=== PATIENT | female | born 1965 | race Caucasian/White ===

== ENCOUNTER 2022-10-07 07:08 | Outpatient (OUT) | payer BC, SELFPAY ==
[2022-10-07 07:58] LABS: Basophils Absolute Auto 0.1 10^3/uL (0.0-0.1); Basophils Percent Auto 1.2 % (0.2-2.0); Eosinophils Absolute Auto 0.2 10^3/uL (0.0-0.7); Eosinophils Percent Auto 3.4 % (0.9-7.0); Hematocrit 40.6 % (36.0-48.0); Hemoglobin 13.6 g/dL (12.0-16.0); Immature Granulocytes Abs Auto 0.01 10^3/uL (0.00-0.03); Immature Granulocytes Pct Auto 0.2 % (0.0-0.5); Lymphocytes Percent Auto 39.1 % (20.5-60.0); Mean Corpuscular HGB Conc 33.5 g/dL (29.9-35.2); Mean Corpuscular Hemoglobin 28.7 pg (26.7-34.0); Mean Corpuscular Volume 85.7 fL (81.0-99.0); Monocytes Absolute Auto 0.4 10^3/uL (0.3-0.8); Monocytes Percent Auto 8.5 % (1.7-12.0); Neutrophils Absolute Auto 2.4 10^3/uL (1.4-6.5); Neutrophils Percent Auto 47.6 % (43.0-75.0); Platelet Count 256 10^3/uL (150-450); Red Blood Count 4.74 10^6/uL (4.20-5.40); Red Cell Distribution Width 11.9 % (11.0-15.0); White Blood Count 5.1 10^3/uL (4.0-11.0)
[2022-10-07 08:24] LABS: Alanine Aminotransferase 38 U/L (14-59); Albumin Level 3.7 g/dL (3.4-5.0); Alkaline Phosphatase 74 U/L (46-116); Anion Gap 11.8; Aspartate Amino Transferase 20 U/L (15-37); BUN Creatinine Ratio 23.7; Bilirubin Total 0.9 mg/dL (0.2-1.0); Carbon Dioxide 30.4 mmol/L (21.0-32.0); Chloride 104 mmol/L (98-107); Chol HDL Ratio 3.9; Cholesterol 212 mg/dL (<=200); Estimated GFR (African America >60 (>=60); Estimated GFR (Non-African Ame >60 (>=60); Globulin 3.6 g/dL; Glucose 101 mg/dL (74-106); HDL Cholesterol 55 mg/dL (40-60); Potassium 3.2 mmol/L (3.5-5.1); Sodium 143 mmol/L (136-145); Total Protein 7.3 g/dL (6.4-8.2); Triglycerides 120 mg/dL (<=150)
== END 2022-10-07 07:09 | disposition home or self-care (01) ==
LOC: LAB 07:14
PROVIDERS: PCP Family Medicine; Visit Provider Physician Assistant
DX: Z00.00 Encounter for general adult medical examination without abnormal findings (principal); I10 Essential (primary) hypertension; D64.9 Anemia, unspecified; E87.6 Hypokalemia; E66.9 Obesity, unspecified
CPT/HCPCS: 36415; 80053; 80061; 85025

== ENCOUNTER 2022-10-10 07:17 | Outpatient (OUT) | payer BC, SELFPAY ==
--- NOTE | 2022-10-10 | MM_ITS ---
Patient: AJITH REYES Exam Date: 10/10/2022 : 1965 Gender:F Ordering : DR GIULIA BOWIE Admission #: [id number] Family : DR Zendejas Abbey . Order #: [id number] CLICK HERE TO VIEW EXAM RADIOLOGY REPORT PROCEDURE: MM TOMOSYNTHESIS SCREENING BI COMPARISON: MG MAMM SCREEN 3D FARIBA CAD, 10/11/2021. MG MAMM SCREEN 3D FARIBA CAD, 10/19/2020. MG MAMM SCREEN 3D FARIBA CAD, 09/28/2019. MG MAMM SCREEN 3D FARIBA CAD, 08/16/2018. INDICATIONS: Screening Calculator Name NCI Breast Cancer Risk Assessment Tool 5 Year Breast Cancer Risk 1.10% Lifetime Breast Cancer Risk 7.20% Personal Breast Cancer No Personal Ovarian Cancer No Treatments None Family Cancers None LOCATION: The [facility] BREAST COMPOSITION: Almost entirely fatty. FINDINGS: DIAGNOSTIC CATEGORY 2--BENIGN FINDING: RIGHT BREAST: No significant suspicious finding. Scattered benign-appearing calcifications are present. No significant change has occurred. LEFT BREAST: No significant suspicious finding. Scattered benign-appearing calcifications are present. No significant change has occurred. RECOMMENDATIONS: ROUTINE MAMMOGRAM AND CLINICAL EVALUATION IN 12 MONTHS. PLEASE NOTE: A NORMAL MAMMOGRAM DOES NOT EXCLUDE THE POSSIBILITY OF BREAST CANCER. A CLINICALLY SUSPICIOUS PALPABLE LUMP SHOULD BE BIOPSIED. Dictated by: Nico Dobson M.D. on 10/10/2022 at 14:55 Approved by: Nico Dobson M.D. on 10/10/2022 at 14:56
== END 2022-10-10 07:18 | disposition home or self-care (01) ==
LOC: MAMMO 07:18
PROVIDERS: PCP Family Medicine; Visit Provider Physician Assistant
DX: Z12.31 Encounter for screening mammogram for malignant neoplasm of breast (principal)
CPT/HCPCS: 77063; 77067

== ENCOUNTER 2022-11-24 21:03 | Outpatient (REF) | payer OTHER, SELFPAY ==
[2022-11-28 14:09] LABS: Age Gdln ACOG Testing Note (.); HPV Aptima Negative (Negative); IGP, Aptima HPV, rfx 16/18,45 Note (.)
== END 2022-11-24 21:04 | disposition home or self-care (01) ==
LOC: LAB 21:03
PROVIDERS: PCP Family Medicine; Visit Provider Obstetrics & Gynecology
DX: Z12.4 Encounter for screening for malignant neoplasm of cervix (principal)
CPT/HCPCS: G0145

== ENCOUNTER 2022-12-12 12:52 | Outpatient (OUT) | payer OTHER, SELFPAY ==
--- NOTE | 2022-12-12 12:55 | XR_ITS ---
[address] [address] Patient Name: AJITH REYES MRN: [id number] date: 1965 Sex: F Assigned Patient Location: [facility] Current Patient Location: [facility] Accession/Order Number: [id number] Exam Date: 12/12/2022 13:05 Report Date: 12/12/2022 17:51 At the request of: MONIQUE ZAVALA Procedure: XR DEXA axial skeleton EXAMINATION: XR DEXA axial skeleton, 12/12/2022 1:05 PM EDT HISTORY: Screening Osteoporosis Z13.820 COMPARISON: 2021 TECHNIQUE: Dual-energy X-ray absorptiometry (DEXA) bone density study performed for the axial skeleton. HISTORY: Screening Osteoporosis Z13.820 FINDINGS: Bone mineral density AP spine L1-L4 measures 1.357 g/sq cm. T score 1.5. WHO classification: Normal. Lowest bone mineral density left femoral neck measuring 0.997 g/sq cm. T score -0.3. WHO classification: Normal XR/XR DEXA axial skeleton IMPRESSION: Normal bone mineral density. Low fracture risk Electronically authenticated by: POOL SORIA Date: 12/12/2022 17:51
== END 2022-12-12 12:53 | disposition home or self-care (01) ==
LOC: RAD 12:52
PROVIDERS: PCP Family Medicine; Visit Provider Obstetrics & Gynecology
DX: Z13.820 Encounter for screening for osteoporosis (principal)
CPT/HCPCS: 77080

== ENCOUNTER 2023-10-09 06:55 | Outpatient (OUT) | payer OTHER, SELFPAY ==
[2023-10-09 08:22] LABS: Basophils Absolute Auto 0.1 10^3/uL (0.0-0.1); Basophils Percent Auto 0.9 % (0.2-2.0); Eosinophils Absolute Auto 0.2 10^3/uL (0.0-0.7); Eosinophils Percent Auto 3.7 % (0.9-7.0); Hematocrit 42.2 % (36.0-48.0); Hemoglobin 13.9 g/dL (12.0-16.0); Immature Granulocytes Abs Auto 0.01 10^3/uL (0.00-0.03); Immature Granulocytes Pct Auto 0.2 % (0.0-0.5); Lymphocytes Absolute Auto 2.1 10^3/uL (1.2-3.8); Mean Corpuscular HGB Conc 32.9 g/dL (29.9-35.2); Mean Corpuscular Hemoglobin 28.3 pg (26.7-34.0); Mean Corpuscular Volume 85.8 fL (81.0-99.0); Mean Platelet Volume 9.1 fL (9.5-13.5); Monocytes Absolute Auto 0.4 10^3/uL (0.3-0.8); Monocytes Percent Auto 7.9 % (1.7-12.0); Neutrophils Absolute Auto 2.7 10^3/uL (1.4-6.5); Neutrophils Percent Auto 49.3 % (43.0-75.0); Platelet Count 280 10^3/uL (150-450); Red Blood Count 4.92 10^6/uL (4.20-5.40); Red Cell Distribution Width 11.9 % (11.0-15.0); White Blood Count 5.4 10^3/uL (4.0-11.0)
[2023-10-09 10:32] LABS: Alanine Aminotransferase 54 U/L (14-59); Albumin Level 3.6 g/dL (3.4-5.0); Alkaline Phosphatase 93 U/L (46-116); Anion Gap 10.3; Aspartate Amino Transferase 19 U/L (15-37); BUN Creatinine Ratio 28.6; Bilirubin Total 0.8 mg/dL (0.2-1.0); Calcium 8.8 mg/dL (8.5-10.1); Carbon Dioxide 30.3 mmol/L (21.0-32.0); Chloride 105 mmol/L (98-107); Chol HDL Ratio 4.7; Cholesterol 239 mg/dL (<=200); Estimated GFR (African America >60 (>=60); Estimated GFR (Non-African Ame >60 (>=60); Globulin 3.7 g/dL; Glucose 99 mg/dL (74-106); HDL Cholesterol 51 mg/dL (40-60); Potassium 3.6 mmol/L (3.5-5.1); Sodium 142 mmol/L (136-145); TSH W/ REFLEX FT4 1.396 uIU/mL (0.358-3.740); Total Protein 7.3 g/dL (6.4-8.2); Triglycerides 91 mg/dL (<=150); VLDL CHOLESTEROL 18.2 mg/dL
== END 2023-10-09 06:56 | disposition home or self-care (01) ==
LOC: LAB 06:59
PROVIDERS: PCP Family Medicine; Visit Provider Physician Assistant
DX: Z00.00 Encounter for general adult medical examination without abnormal findings (principal); I10 Essential (primary) hypertension; D64.9 Anemia, unspecified; E87.6 Hypokalemia; R53.83 Other fatigue; Z83.49 Family history of other endocrine, nutritional and metabolic diseases; M79.10 Myalgia, unspecified site
CPT/HCPCS: 36415; 80053; 80061; 82306; 84443; 85025

== ENCOUNTER 2023-10-20 10:04 | Outpatient (OUT) | payer OTHER, SELFPAY ==
--- NOTE | 2023-10-20 10:16 | MM_ITS ---
Patient Name: AJITH REYES MR#: [id number] : 1965 Exam Date: 10/20/2023 Ordering Doctor: DR GIULIA BOWIE RADIOLOGY REPORT PROCEDURE: MM TOMOSYNTHESIS SCREENING BI COMPARISON: MM TOMOSYNTHESIS SCREENING BI, 10/10/2022. MG MAMM SCREEN 3D FARIBA CAD, 10/11/2021. MG MAMM SCREEN 3D FARIBA CAD, 10/19/2020. MG MAMM SCREEN 3D FARIBA CAD, 09/28/2019. INDICATIONS: Screening Calculator Name NCI Breast Cancer Risk Assessment Tool 5 Year Breast Cancer Risk 1.10% Lifetime Breast Cancer Risk 7.10% Personal Breast Cancer No Personal Ovarian Cancer No Treatments None Family Cancers None LOCATION: [facility] BREAST COMPOSITION: The breasts are almost entirely fatty. FINDINGS: DIAGNOSTIC CATEGORY 2--BENIGN FINDING: RIGHT BREAST: No significant suspicious finding. Scattered benign-appearing calcifications are present. No significant change has occurred. LEFT BREAST: No significant suspicious finding. Scattered benign-appearing calcifications are present. No significant change has occurred. RECOMMENDATIONS: ROUTINE MAMMOGRAM AND CLINICAL EVALUATION IN 12 MONTHS. PLEASE NOTE: A NORMAL MAMMOGRAM DOES NOT EXCLUDE THE POSSIBILITY OF BREAST CANCER. A CLINICALLY SUSPICIOUS PALPABLE LUMP SHOULD BE BIOPSIED. Dictated by: Nico Dobson M.D. on 10/20/2023 at 11:39 Approved by: Nico Dobson M.D. on 10/20/2023 at 11:44
== END 2023-10-20 10:05 | disposition home or self-care (01) ==
LOC: MAMMO 10:05
PROVIDERS: PCP Family Medicine; Visit Provider Physician Assistant
DX: Z12.31 Encounter for screening mammogram for malignant neoplasm of breast (principal)
CPT/HCPCS: 77063; 77067

== ENCOUNTER 2023-12-02 19:41 | Outpatient (REF) | payer OTHER, SELFPAY ==
--- OUTSIDE RECORDS SUMMARY | 2023-12-02 19:46 | XMS_ITS | CCD ---
Author Organization [facility] Care Team Providers Care Information Strategist Name Role Phone WEST, DR POOL Aaron Consulting Unavailable REQUEST, NONE LISTED Primary Care Unavaila ble SALLY, DR AMAYA Admitting Unavailable SALLY, DR AMAYA Attending Unavailable SALLY, DR AMAYA Consulting Unavailable SALLY, DR AMAYA Admitting Unavailable SALLY, DR AMAYA Attending Unavailable SALLY, DR AMAYA Consulting Unavailable REQUEST, NONE LISTED Primary Care Unavaila ble SYLVIA, VAISHALI Attending Unavailable SYLVIA, VAISHALI Consulting Unavailable SYLVIA, AVISHALI Admitting Unavailable REQUEST, NONE LISTED Primary Care Unavaila ble SYLVIA, VAISHALI Consulting Unavailable SYLVIA, VAISHALI Admitting Unavailable SYLVIA, VAISHALI Attending Unavailable REQUEST, NONE LISTED Primary Care Unavaila ble ZIEBER, DR NICO Decker Consulting Unavailable HEMMER, DR GIULIA Davis Admitting Unavailable HEMMER, DR GIULIA Davis Attending Unavailable HEMMER, DR GIULIA Davis Consulting Unavailable HEMMER, DR GIULIA Davis Consulting Unavailable MISC, DR TREVINO Primary Care Unavailable HEMMER, DR GIULIA Davis Admitting Unavailable HEMMER, DR GIULIA Davis Attending Unavailable SYLVIA, VAISHALI Consulting Unavailable SYLVIA, VAISHALI Admitting Unavailable SYLVIA, VAISHALI Attending Unavailable BG FARMER Attending Unavailable INDIRA LOCO Attending Unavailable BG FARMER Referring Unavailable INDIRA LOCO Attending Unavailable HEMMERGIULIA Attending Unavailable HEMMER, GIULIA Davis Attending Unavailable Problems Active Problems Problem Classification Problem Date Documented Date Episodic/Chronic Deficiency and other anemia (1 source) Anemia, unspecified; Translations: [ANEMIA UNSPECIFIED] Onset: 10-08-2021 Episodic Essential hypertension (1 source) Essential (primary) hypertension; Translations: [ESSENTIAL PRIMARY HYPERTENSION] Onset: 07-12-2022 Chronic Fluid and electrolyte disorders (1 source) Hypokalemia; Translations: [HYPOKALEMIA] Onset: 10-08-2021 Episodic Immunizations and screening for infectious disease (1 source) Encounter for screening for human papillomavirus (HPV); Translations: [ENC SCREENING HUMAN PAPILLOMAVIRUS] Onset: 11-01-2021 Episodic Other nutritional; endocrine; and metabolic disorders (1 source) Obesity, unspecified; Translations: [OBESITY UNSPECIFIED] Onset: 10-08-2021 Chronic Other screening for suspected conditions (not mental disorders or infectious disease) (8 sources) Encounter for screening for malignant neoplasm of cervix; Translations: [Encounter for screening mammogram for malignant neoplasm of breast] Onset: 10-11-2021 Episodic Residual codes; unclassified (4 sources) Asymptomatic menopausal state; Translations: [ASYMPTOMATIC MENOPAUSAL STATE] Onset: 11-08-2021 Episodic Unclassified (3 sources) CONTACT W/AND (SUSP) EXPOS COVID-19; Translations: [CONTACT W/AND (SUSP) EXPOS COVID-19] Onset: 10-31-2021 Viral infection (1 source) COVID-19; Translations: [COVID-19] Onset: 10-24-2021 Past or Other Problems Problem Classification Problem Date Documented Da te Episodic/Chronic Unclassified (1 source) CONTACT W/AND (SUSP) EXPOS COVID-19; Translations: [CONTACT W/AND (SUSP) EXPOS COVID-19] Onset: 10-28-2021 Results Test Name Value Interpretation Reference Range Facility XR DEXA BONE DENSITYon 11-08 XR DEXA BONE DENSITY EXAMINATION: XR DEXA BONE DENSITY, 11/08/2021 8:22 AM EDT HISTORY: Menopause present COMPARISON: None. TECHNIQUE: Dual-energy X-ray absorptiometry (DEXA) bone density study performed for the axial skeleton. FINDINGS: Bone mineral density AP spine L1-L4 measures 1.272 g/sq cm. T score 0.8. WHO classification: Normal. Lowest bone mineral density left femoral neck measures 0.992 g/sq cm. T score -0.3. Classification: Normal IMPRESSION: Normal bone mineral density. Low fracture risk Electronically authenticated by: POOL SORIA Date: 2021-11-08 17:21 Normal [facility] PAP ACOG PANEL 2: 30 to 65on 10-31-2021 . . Normal [facility] Comment on above: Result Comment: Perf ormed at: WB Performed By: #### [id number] #### [facility] [address] [address] [address] Alejandro Daniels Age Gdln ACOG Testing 30-65 [facility] Comment on above: Performed By: #### [id number] #### [facility] [address] [address] [address] Alejandro Daniels DIAGNOSIS: Comment Normal [facility] Comment on above: Result Comment: NEGA TIVE FOR INTRAEPITHELIAL LESION OR MALIGNANCY. Performed at: WB Performed By: #### [id number] #### [facility] [address] [place] [address] Dr. Alejandro Daniels HPV Aptima Negative Normal Negative [facility] Comment on above: Result Comment: This nucleic acid amplification test detects fourteen high-risk HPV types (16,18,31,33,35,39,45,51,52,56,58,59,66,68) without differentiation. Performed at: =G Performed By: #### [id number] #### [facility] [address] [place] [address] Dr. Alejandro Daniels Methodology: Comment [facility] Comment on above: Result Comment: This liquid based ThinPrep(R) pap test was screened with the use of an image guided system. Performed at: WB Performed By: #### [id number] #### [facility] [address] [place] [address] Dr. Alejandro Daniels Note: Comment Normal [facility] Comment on above: Result Comment: The Pap smear is a screening test designed to aid in the detection of premalignant and malignant conditions of the uterine cervix. It is not a diagnostic procedure and should not be used as the sole means of detecting cervical cancer. Both false-positive and false-negative reports do occur. . Performed at: WB Performed By: #### [id number] #### [facility] [address] [place] [address] Dr. Alejandro Daniels Performed by: Comment Normal [facility] Comment on above: Result Comment: Aurora Quinones Insurance Claim Auditor (ASCP) Performed at: WB Performed By: #### [id number] #### [facility] [address] [address] [address] Alejandro Daniels Specimen adequacy: Comment Normal [facility] Comment on above: Result Comment: Sati sfactory for evaluation. Endocervical and/or squamous metaplastic cells (endocervical component) are present. Performed at: WB Performed By: #### [id number] #### [facility] [address] [address] [address] Alejandro Daniels ASYMPTOMATIC COVID-19 ANTIGE Non 10-28-2021 EUA Statement SEE BELOW Normal [facility] Comment on above: Result Comment: This test has not been FDA cleared or approved, but has been authorized by the FDA under an Emergency Use Authorization (EUA) for use by authorized laboratories certified under CLIA that meet the requirements to perform moderate or high complexity testing. This test has been authorized only for the detection of proteins from SARS-CoV-2, not for any other viruses or pathogens. The emergency use of this test is authorized for the duration of the declaration that circumstances exist justifying the authorization of emergency use of in vitro diagnostic tests for detection and/or diagnosis of Covid-19 under section 564(b)(1) of the Act, 21 U.S.C. 360bbb-3(b)(1), unless the declaration is terminated or authorization is revoked sooner. Performed By: #### C VDAGA #### [facility] [address] [place] [address] Dr. Alejandro Daniels SARS-CoV-2 (COVID-19) RNA HILARY+probe Ql (Unsp spec) Negative Normal NEGATIVE [facility] Comment on above: Result Comment: Nega tive results are presumptive. They do not preclude infection and should not be used as the sole basis for treatment decisions. Additional confirmatory testing by a molecular method should be considered. Performed By: #### C VDAGA #### [facility] [address] [place] [address] Dr. Alejandro Daniels Covid-19 PCR ([facility])on 09-28 SARS-CoV-2 (COVID-19) RNA HILARY+probe Ql (Unsp spec) Detected Critically abnormal NOT DETECTED [facility] Comment on above: Result Comment: This test is not yet approved or cleared by the [place] FDA. When there are no FDA-approved or cleared tests available, and other criteria are met, FDA can make tests available under an emergency access mechanism called an Emergency Use Authorization (EUA). The EUA for this test is supported by the [employer] of Health and Human Service's declaration that circumstances exist to justify the emergency use of in vitro diagnostics for the detection and/or diagnosis of the virus that causes COVID-19. This EUA will remain in effect for the duration of the COVID-19 declaration justifying emergency of IVDs, unless it is terminated or revoked by the FDA (after which the test may no longer be used). Performed By: #### C VDTB #### [facility] [address] [address] [address] Alejandro Daniels MG MAMM SCREEN 3D HAYDEN CADon 10-11-2021 MG MAMM SCREEN 3D HAYDEN CAD Patient: AJITH REYES Exam Date: 10/11/2021 : 1965 Gender:F Ordering : DR GIULIA ESPARZA PA Admission #: [id number] Family : DR MONIQUE ZAVALA . Order #: [id number] CLICK HERE TO VIEW EXAM RADIOLOGY REPORT PROCEDURE: MAMMOGRAM SCREENING 3D BILATERAL CAD COMPARISON: MG MAMM SCREEN 3D HAYDEN CAD, 10/19/2020. MG MAMM SCREEN 3D HAYDEN CAD, 09/28/2019. INDICATIONS: Screening mammography Calculator Name NCI Breast Cancer Risk Assessment Tool 5 Year Breast Cancer Risk 1.10% Lifetime Breast Cancer Risk 7.40% Personal Breast Cancer No Personal Ovarian Cancer No Treatments None Family Cancers None LOCATION: [facility] BREAST COMPOSITION: Almost entirely fatty. FINDINGS: DIAGNOSTIC CATEGORY 2--BENIGN FINDING: RIGHT BREAST: No significant suspicious finding. Scattered benign-appearing calcifications are present. No significant change has occurred. LEFT BREAST: No significant suspicious finding. Scattered benign-appearing calcifications are present. No significant change has occurred. RECOMMENDATIONS: ROUTINE MAMMOGRAM AND CLINICAL EVALUATION IN 12 MONTHS. PLEASE NOTE: A NORMAL MAMMOGRAM DOES NOT EXCLUDE THE POSSIBILITY OF BREAST CANCER. A CLINICALLY SUSPICIOUS PALPABLE LUMP SHOULD BE BIOPSIED. Dictated by: Nico Dobson M.D. on 10/14/2021 at 11:24 Approved by: Nico Dobson M.D. on 10/14/2021 at 11:30 Normal [facility] CBC AUTO DIFFon 10-04-2021 BASO # 0.0 103/ul Normal 0.0-0.1 [facility] Comment on above: Performed By: #### C BC #### [facility] [address] [address] [address] Alejandro Daniels Basophils/100 WBC (Bld) 0.9 % Normal 0.2-2.0 [facility] Comment on above: Performed By: #### C BC #### [facility] [address] [address] [address] Alejandro Daniels EO # 0.3 103/ul Normal 0.0-0.7 [facility] Comment on above: Performed By: #### C BC #### [facility] [address] [place] [address] Dr. Alejandro Daniels Eosinophils/100 WBC (Bld) 7.3 % Critically high 0.9-7.0 [facility] Comment on above: Performed By: #### C BC #### [facility] [address] [address] [address] Alejandro Daniels Erythrocyte distribution width (RBC) [Ratio] 11.8 % Normal 11.0-15.0 [facility] Comment on above: Performed By: #### C BC #### [facility] [address] [place] [address] Dr. Alejandro Daniels Hematocrit (Bld) [Volume fraction] 40.8 % Normal 36.0-48.0 [facility] Comment on above: Performed By: #### C BC #### [facility] [address] [address] [address] Alejandro Daniels Hemoglobin (Bld) [Mass/Vol] 13.6 g/dL Normal 12.0-16.0 [facility] Comment on above: Performed By: #### C BC #### [facility] [address] [address] [address] Alejandro Daniels IG # 0.01 10e3/ul Normal 0.00-0.03 [facility] Comment on above: Performed By: #### C BC #### [facility] [address] [place] [address] Dr. Alejandro Daniels IG % 0.2 % Normal 0.0-0.5 [facility] Comment on above: Performed By: #### C BC #### [facility] [address] [place] [address] Dr. Alejandro Daniels LYMPH # 1.6 103/ul Normal 1.2-3.8 [facility] Comment on above: Performed By: #### C BC #### [facility] [address] [place] [address] Dr. Alejandro Daniels Lymphocytes/100 WBC (Bld) 35.8 % Normal 20.5-60.0 [facility] Comment on above: Performed By: #### C BC #### [facility] [address] [place] [address] Dr. Alejandro Daniels MANUAL DIFF REQ NO Normal [facility] Comment on above: Performed By: #### C BC #### [facility] [address] [place] [address] Dr. Alejandro Daniels MCH (RBC) [Entitic mass] 28.9 pg Normal 26.7-34.0 [facility] Comment on above: Performed By: #### C BC #### [facility] [address] [place] [address] Dr. Alejandro Daniels MCHC (RBC) [Mass/Vol] 33.3 g/dL Normal 29.9-35.2 [facility] Comment on above: Performed By: #### C BC #### [facility] [address] [place] [address] Dr. Alejandro Daniels MCV (RBC) [Entitic vol] 86.6 fL Normal 81.0-99.0 [facility] Comment on above: Performed By: #### C BC #### [facility] [address] [place] [address] Dr. Alejandro Daniels MONO # 0.4 103/ul Normal 0.3-0.8 [facility] Comment on above: Performed By: #### C BC #### [facility] [address] [address] [address] Alejandro Daniels Monocytes/100 WBC (Bld) 8.2 % Normal 1.7-12.0 [facility] Comment on above: Performed By: #### C BC #### [facility] [address] [address] [address] Alejandro Daniels NEUT # 2.1 103/ul Normal 1.4-6.5 [facility] Comment on above: Performed By: #### C BC #### [facility] [address] [address] [address] Alejandro Daniels Neutrophils/100 WBC (Bld) 47.6 % Normal 43.0-75.0 [facility] Comment on above: Performed By: #### C BC #### [facility] [address] [place] [address] Dr. Alejandro Daniels Platelet mean volume (Bld) [Entitic vol] 9.1 fL Critically low 9.5-13.5 [facility] Comment on above: Performed By: #### C BC #### [facility] [address] [place] [address] Dr. Alejandro Daniels PLT 241 103/ul Normal 150-450 [facility] Comment on above: Performed By: #### C BC #### [facility] [address] [place] [address] Dr. Alejandro Daniels RBC 4.71 106/ul Normal 4.20-5.40 [facility] Comment on above: Performed By: #### C BC #### [facility] [address] [place] [address] Dr. Alejandro Daniels WBC 4.4 103/ul Normal 4.0-11.0 [facility] Comment on above: Performed By: #### C BC #### [facility] [address] [place] [address] Dr. Alejandro Daniels LIPID PROFILEon 10-04-2021 CHOL-HDL RATIO NORM SEE BELOW Normal [facility] Comment on above: Result Comment: 3.3 - 4.4 LOW RISK 4.4 - 7.1 AVERAGE RISK 7.1 - 11.0 MODERATE RISK >11.0 HIGH RISK Performed By: #### C MP, LIPID #### [facility] [address] [address] [address] Alejandro Daniels Cholesterol [Mass/Vol] 210 mg/dL Critically high <=200 [facility] Comment on above: Performed By: #### C MP, LIPID #### [facility] [address] [address] [address] Alejandro Daniels Cholesterol in HDL [Mass/Vol] 61 mg/dL Critically high 40-60 [facility] Comment on above: Performed By: #### C MP, LIPID #### [facility] [address] [address] [address] Alejandro Daniels Cholesterol in LDL [Mass/Vol] 140.8 mg/dL Normal [facility] Comment on above: Performed By: #### C MP, LIPID #### [facility] [address] [place] [address] Dr. Alejandro Daniels Cholesterol.total /Cholesterol in HDL [Mass ratio] 3.4 {ratio} Normal [facility] Comment on above: Performed By: #### C MP, LIPID #### [facility] [address] [address] [address] Alejandro Daniels HDL NORMAL > or = 60 mg/dl - LO W CARDIOVASCULAR RISK <40 mg/dl - HIGH CARDIOVASCULAR RISK Normal [facility] Comment on above: Performed By: #### C MP, LIPID #### [facility] [address] [place] [address] Dr. Alejandro Daniels LDL CALC NORMAL SEE BELOW Normal [facility] Comment on above: Result Comment: <100 mg/dl OPTIMAL 100 - 129 mg/dl NEAR OR ABOVE OPTIMAL 130 - 159 mg/dl BORDERLINE HIGH 160 - 189 mg/dl HIGH >190 mg/dl VERY HIGH Performed By: #### C MP, LIPID #### [facility] [address] [place] [address] Dr. Alejandro Daniels Triglyceride [Mass/Vol] 41 mg/dL Normal <=150 [facility] Comment on above: Performed By: #### C MP, LIPID #### [facility] [address] [place] [address] Dr. Alejandro Daniels VLDL CALC 8.2 mg/dL Normal [facility] Comment on above: Performed By: #### C MP, LIPID #### [facility] [address] [place] [address] Dr. Alejandro Daniels PROF 14(COMP METB)on 022 Albumin [Mass/Vol] 3.7 g/dL Normal 3.4-5.0 [facility] Comment on above: Performed By: #### C MP, LIPID #### [facility] [address] [place] [address] Dr. Alejandro Daniels Albumin/Globulin [Mass ratio] 1.1 {ratio} Normal [facility] Comment on above: Performed By: #### C MP, LIPID #### [facility] [address] [place] [address] Dr. Alejandro Daniels ALP [Catalytic activity/Vol] 82 U/L Normal 46-116 [facility] Comment on above: Performed By: #### C MP, LIPID #### [facility] [address] [place] [address] Dr. Alejandro Daniels ALT [Catalytic activity/Vol] 42 U/L Normal 14-59 [facility] Comment on above: Performed By: #### C MP, LIPID #### [facility] [address] [place] [address] Dr. Alejandro Daniels Anion gap [Moles/Vol] 9.9 mmol/L Normal [facility] Comment on above: Performed By: #### C MP, LIPID #### [facility] [address] [place] [address] Dr. Alejandro Daniels AST [Catalytic activity/Vol] 16 U/L Normal 15-37 [facility] Comment on above: Performed By: #### C MP, LIPID #### [facility] [address] [place] [address] Dr. Alejandro Daniels Bilirubin [Mass/Vol] 0.8 mg/dL Normal 0.2-1.0 [facility] Comment on above: Performed By: #### C MP, LIPID #### [facility] [address] [place] [address] Dr. Alejandro Daniels Calcium [Mass/Vol] 8.8 mg/dL Normal 8.5-10.1 [facility] Comment on above: Performed By: #### C MP, LIPID #### [facility] [address] [place] [address] Dr. Alejandro Daniels Chloride [Moles/Vol] 107 mmol/L Normal 98-107 [facility] Comment on above: Performed By: #### C MP, LIPID #### [facility] [address] [place] [address] Dr. Alejandro Daniels CO2 [Moles/Vol] 29.6 mmol/L Normal 21.0-32.0 [facility] Comment on above: Performed By: #### C MP, LIPID #### [facility] [address] [place] [address] Dr. Alejandro Daniels Creatinine [Mass/Vol] 0.69 mg/dL Normal 0.55-1.02 [facility] Comment on above: Performed By: #### C MP, LIPID #### [facility] [address] [place] [address] Dr. Alejandro Daniels EGFR-AF ITALIAN >60 Normal >=60 [facility] Comment on above: Performed By: #### C MP, LIPID #### [facility] [address] [place] [address] Dr. Alejandro Daniels EGFR-NON AF ITALIAN >60 Normal >=60 [facility] Comment on above: Performed By: #### C MP, LIPID #### [facility] [address] [place] [address] Dr. Alejandro Daniels Globulin (S) [Mass/Vol] 3.5 g/dL Normal [facility] Comment on above: Performed By: #### C MP, LIPID #### [facility] [address] [place] [address] Dr. Alejandro Daniels Glucose [Mass/Vol] 100 mg/dL Normal 74-106 [facility] Comment on above: Performed By: #### C MP, LIPID #### [facility] [address] [place] [address] Dr. Alejandro Daniels Potassium [Moles/Vol] 3.5 mmol/L Normal 3.5-5.1 [facility] Comment on above: Performed By: #### C MP, LIPID #### [facility] [address] [place] [address] Dr. Alejandro Daniels Protein [Mass/Vol] 7.2 g/dL Normal 6.4-8.2 [facility] Comment on above: Performed By: #### C MP, LIPID #### [facility] [address] [place] [address] Dr. Aleajndro Daniels Sodium [Moles/Vol] 143 mmol/L Normal 136-145 [facility] Comment on above: Performed By: #### C MP, LIPID #### [facility] [address] [place] [address] Dr. Alejandro Daniels Urea nitrogen [Mass/Vol] 21.0 mg/dL Critically high 7.0-18.0 [facility] Comment on above: Performed By: #### C MP, LIPID #### [facility] [address] [place] [address] Dr. Alejandro Daniels Urea nitrogen/Creatini ne [Mass ratio] 30.4 mg/mg Normal [facility] Comment on above: Performed By: #### C MP, LIPID #### [facility] [address] [place] [address] Dr. Alejandro Daniels Covid-19 PCR ([facility])on SARS-CoV-2 (COVID-19) RNA HILARY+probe Ql (Unsp spec) Not detected Normal NOT DETECTED [facility] Comment on above: Result Comment: When diagnostic testing is negative, the possibility of a false negative should be considered in the context of a patient's recent exposures and the presence of clinical signs and symptoms consistent with SARS-CoV-2. This test is not yet approved or cleared by the [place] FDA. When there are no FDA-approved or cleared tests available, and other criteria are met, FDA can make tests available under an emergency access mechanism called an Emergency Use Authorization (EUA). The EUA for this test is supported by the [place] of Health and Human Service's declaration that circumstances exist to justify the emergency use of in vitro diagnostics for the detection and/or diagnosis of the virus that causes COVID-19. This EUA will remain in effect for the duration of the COVID-19 declaration justifying emergency of IVDs, unless it is terminated or revoked by the FDA (after which the test may no longer be used). Performed By: #### C VDTB #### [facility] [address] [place] [address] Dr. Alejandro Daniels Coding Summary.on 10-24-2020 Coding Summary. CD:[id number] Gh0b Ww+PGhlYWQ+KG7HKCOsF75mf SNoiO3UX5oXWE0ENHEKAQOVF P8EZX3qbZE7MYcpW7InwyEi QtskhQNkHJ62NTk3TDT4kPvb IZlqmW3ywVPvJ7l0TiXiUB29 zB93JJxxMWFwExV2TdWdjacx bWFy P8xlVnGegKZpUnx+PHRhYmxl IHdpZHRoPScxMDAlJyBzdHls ZY7vOw3cCIGzMJZlcVniuNUa OiBj l9vyANFvIOujPY1oeMubE7Im sHR3OGSxo7j2Us54pFT+PHRk NZN3sHcxVYpgr293PsBjb6mb IDM3 iLAuNGqjDTA2E59pu3L6ECDm FCZfQOM5rFR0mX5ehDvhynib H5QdbUUlSuC9TUU1xLNhnA2n bGln iunyhN2bWgy+B07PUI1ADAXO UF9AHlf3K8HlMeibtXD+PC90 IBTpXQ29cWJtxJGer6hhcWr4 JzEw TMCyRCP0hFntQGxay0CaUNAe W80etRBec2O6MFSdjMsvwJAf QrWquQY7zX1mYZzlwtmsj5pw dzsn Fbwjs7mqsx57iF39M44gKIln VGPrLNE5FMEzXOPqzAcvix6p wU0xQz8+EUepz2atv0pjeGi6 IjIw UAXbekIsdCekGKO8g0PcOc41 X4UrpCtuj3VoPiy9rt44aLJd p4G4kLK6UYpdHPYuhW9xMVdz ZnQ6 ZWKlWgBzvT88qTRxGYbjXv5m xLarkBwvYI1kTIKmwnfcDRBq bK1xLZCkfRRazGuyWX0dZUMu bjtm a166NmDsVZH4GVBvlFZrV7Pl eB5kLyMaNVRaNEHsL8PmbSVp SJctL700TWtmKxT7BNHmmbVz Y2Fs SURcsQbnIoL3m2U0Fh9Wm3Ve jhfiUPL6QRlhDRU9NfG6GsVk BwB4N4RyQql0INFvsWubGK7m J3Bh UCXycxdxnbpkuUT7VXArVSDm bY98hWBkXJmvEy1by0F6e057 NANiGAVqrL66Fp7xmJcmXSZr dCBU bK4mosfth9hawawrLgMxIFHi FIw6SSw1GINvhEgsVbLwRUG2 LrS0RWX0aPQzxJ6fmObifdon dG9w Oyc+C03doQ5dNMS5LQK4pibg ENMdbiCuXF48MS34D2LwDydg dGFibGU+MNPtjgNxpXwjUB1i YmFj y9oum4HrTOzdW0LgMRLzCSxt Gqk9ZIDsFIZ9qSI2xX5nPYBf CUzhu5S8kFJ2W0WlbmHqht4s b2xs MDWkRVshW77kdSBje9K3MSTo oXL2GZOyeRrbMaBvcJ75Ntx+ CBYbgXmcv6HfTuwed9ycq8nn dGg9 ZhAwSMCzvtHfgAsaTNP7h4Vm Nj49L95nCFucCNOaMZPkKCGw IHOfaPdyiq2ngY4hTd6+PGNv bCB3 cIS4mA3bLOLsFxK1WKzcH985 KaKxzLSmHehnu6oyp5wlnEu9 CkJnAVImunUidHgpTQA7k1Zh Lz48 G84oTZemTERnBXCwCJOrGAPf eBpnkz5vfJ3qJp7+IV9zs9fl en42nQ54rIG+GGDuENB9cHqq PSdw DKVooJ0kAEjaHwS4PTEhUjYu oH15wVQsCNnvUa4zxMxonCsj YG6aOYEqtfcdq603TmRfq1ty IDEw iKLxPRvsPDV2T57uv1K9VYYe MGYsSBF9hKP7eL5jxWhmjifc bGVmdDsgdmVydGljYWwtYWxp Z246 IHRvcDsnPlBhdGllbnQgTmFt QXy1V3AoNim3NLIdmRzaGI7n aPEpXJijMb6mhZmfpFnjJT3s NTBp nljti600BxEmv8aeEWJtuJDf TSxnSGS6G48ti9R4ULFxPCOn TIM6bSL3vF0koFccduytiKGh dDsg cxXboHhgUJgnUAmbL054JLTp uKrlMeNncsCyVIHpbYE6DO33 HY26bKBpq4Y2sZF5J2MsYCXd bmct kcxxtAP4PPCkZAHirY73Lr0q iXaoSm4fWFUeWAL5MVNheDOn Q6OmvM9nUzHcLQUkIBPtH8Pr eHQt UQwzB188FDryExJ7YVRnpxYl L6DoWFLfqFlzZwS8x8D8Et3O P8P0LR49IO30uINwc6B4pPW7 J3Bh KJZnvdpzkcvpnOY9TSRkRNHe nU85Mf0fcDkhUa8pNTSqDAY3 UUZvtWRyS5EwqJ9iKaMqTDZz MDAw M8ZneGIfHLybD043BXzvWgU2 AUXtmoUkP8WeOXJvoQtqMhM7 p8C3He6OMAi8PZ30VQ90xELk c3R5 hIW3R1XyGFJlpktzazrgmSF5 MXOqSRIxcO82Wi1evVhvFq3k ZDXwYGS2YHGerJWwU0GijW4p OiAj BVJsLSLzU1VyeLUgGYhxX033 REleGpP0LXQugiGmM2AvVHYz wSygZzE6e0U8Bj0MGOAqDX28 IFR5 pDF5GP81MK66B8XdQozzdABp bGU+PHRhYmxlIHdpZHRoPScx XCZxMiIsfFhvCA3hNl0sILOv LWNv jXemiHCcYtHsq7nbQGDfVAnf ZS4voHcjQ2VtxDS0CCYms2y8 Pt80T81lA1RniDB+PGNvbCB3 aWR0 zB0jVqDmZrL4UBisY007AmCu wDNuVcflf1bzf6fboJe2CeT4 JYBawyBxgApzTFP0m1SmAc76 Y29s IHdpZHRoPSIxNSUiIHZhbGln be1mkB1eZs6+EPLwhYW1rHI3 rV4yZyOyGkV2QGmxK848QpQj cCIv Ifvtv4dtn6auiLb1IbYdNERg mtBicIkiLNG4i8ViAf85O8Pj wFiop1RqHwa8df09aLZmi9E3 bGU9 F9VtNVFjsuupaZGybMkgAT2j WYZttnqfBJKgsZ6mYKWnG6f0 ZmYqXvQ2JQcsG5NakkF4RJTe cHQg GSigAYZ9T87ho6Z2HIQaXKFf OBK9kBU3qA7irSqdyexfnXWc bNnrksAidSmrPRjqZGhyB588 IHRv jQihACMwzL5fBDZmdBUfpZsf QR6hUCXeddhjYcaXGJeZQzTZ NjqtZJvLKyQJXLKRIMn2W9Iv Pjx0 NFXjkPtvDB8nsAHlCJrnTv0f qSawaUxsEJ1lKNAsunceGVTu qO6kHZGomAVjkFgfFJ8wSFMt bjtm g045KaAzSWE4OEBbhZZnK3Cz yB2qDjAjERIsYSZxY3BkgZNg NKecT398GQcxFrT3WQClgxSv Y2Fs LFQgqEbzEaB5p5B3Pg4zVl7u DD2jQEH1FR04GJ25fFQul6W9 dKD1A9JmSYZdbzksddoxmNF9 IDAu JVPifY24gGZoJRgiKj3rt3B1 i924PZIrNJGahR54Xw5htVzv GILkmOQDsN0vspifo1uzxiig IzAw WDPmZYt0OCf1ZNFmjAuvFsGk AEN5DqX1YZQ7pHWdcS9ysUrk hpofeE6xJtn+NTQgWWVhcnM8 L3Rk Zyx7NIVrxCfoSZ6vpGDjEKdz La8jbJdwsSuzSV5wTCAcnhax BJGgwE5sMIMmuROgnUalKZ3u NTBp uzsnr859UwTkSHR6SLSsaWOx Y9MaxH0oTdUoAULbPBZnW0Hi sGPhCInsK781OBrfYoY3GSNz cnRp U0RvLDKyrDkcFyO9c0Q0Gn7G TK9skNE6U3UsAhu0QMXwoDwq GG2anLJfAQfxHx7vqMagqZjy MC4w BNXnxuknJHQacB0eQRQquLOd eKvsFS8aVBQadqwtw609IdXc GKI3KBDcgXZzQ1RniW7qMqYh MDAw SXQtU0AqlXHxTDbfI769QIkl PrI9SHDwhwRoZ7QdUKTcqAvj JpK3g7T6Nm6OrCBhPERlYK23 PC90 YM55B5QgNlhefJJtyYS+PHRh YmxlIHdpZHRoPScxMDAlJyBz nFevML8tVu3nWBJmYRIbyXip cHNl EhQhf5sbQEArQZbyCS1izInz U6NanNH2JEXts9t4Nl87D61r X1EegPE+UXPekUX2nPP6eI5n MzAl BeB3ZGdwA427VzTkvOHiTmjq m6vyt3jmcWe8QuGkUPLvpqBb rQbqETW9d7LbCq32S02pWMtc ZHRo IESwGEZoFPKewKlbyz9zqI0m Ii8+ZCKrxGZ6eCM9gR2dSjGs IeF9MHcwP347FbNceVTwRwap Y29s C1RduQX+NBRbPxm8CTYylBak AU2rdJNwJRigHo4lTEU9AdWw UqDcTApvZ4NsZDNyttagfrhl aHQ6 LRNuYMHppK19Tk2qvUzfIq9e TMMiRLU6HMEshMIxI7FgbO1e TrCbLUWcYADrW4BfrVIeZZrg Z246 LGrhNgN7BHRpkzJvE9SrCHMf yVubQoK1j6I2Oo6GcLbgrNIw MR8iPxNqFKb8S0IhOlp1VBYl dHls DL4ffGPvDEucSb7riQyijQvr AZ5yLGBloixaf144GfYes6ls XLKnyBDvGIazYVY4Q10hq0O6 ICMw KPUvPQP9yPD7zE0rnNekrrfj bGVmdDsgdmVydGljYWwtYWxp U397VLXqeJmqOxWNQpy8L8Cn Pjx0 VCVitCdcIM1kfCIgVEmeTs0b gMqolJgiCM5mNGPmrhuel923 FkRyj9rwQFLefBAgAWvuQXZ8 Y29s w1M3ZENeLQOhDPE2eKT0dP6h bGlnbjogbGVmdDsgdmVydGlj LCyaJKypD564AFJxrPrrZw4K Tjo8 F0DaOhv0ENQncSpoND1tsNFb BRdkHa9phAshqTeoZS1hQNYd jccsi967FpTom2seDILrkWYo VGlt DQU2U61jg2N6VAWeYJAkNFK4 bAO3fU3reUezjtkdvNLewOsy hyJaqFgtRBtcZGbnQ375IRXc cDsn PlBheWVyOjwvdGQ+DJ55pg68 Z1JeHfvySir1XPWrLZI6jAC7 aX0cBEQhEItqq5H7mNN0R9Sw cmRl ci1j (more content not included)... Normal [facility] MA Mamm Screen w/CAD if perf and 3D Bilon 10-20-2020 MA Mamm Screen w/CAD if perf and 3D Hayden Exam Date/Time: 10/19/2020 10:28 EDT Reason for Exam: Encounter for screening mammogram for malignant neoplasm of breast Report IMPRESSION: BIRADS 1 NEGATIVE, NORMAL INTERVAL FOLLOW-UP. EXAM: MA Mamm Screen w/CAD if perf and 3D Hayden CLINICAL HISTORY: Encounter for screening mammogram for malignant neoplasm of breast COMPARISONS: 09/28/2019 FINDINGS: 3-D tomosynthesis of the right and left breasts was performed. There are scattered fibroglandular densities within each breast. There are no suspicious masses, areas of suspicious microcalcifications or areas of architectural distortion identified. Dense Breast: No Follow-up: 12 MONTH RECALL. MAMMOGRAPHY IS VERY IMPORTANT TO YOUR HEALTH. THE CURRENT [employer] [employer] GUIDELINES RECOMMENDS ANNUAL MAMMOGRAPHY BEGINNING AT AGE 41. THE EXAMINATION WAS REVIEWED WITH COMPUTER AIDED DETECTION. THIS FACILITY UTILIZES A REMINDER SYSTEM TO ENSURE ALL PATIENTS RECEIVE REMINDER NOTIFICATIONS AT THE APPROPRIATE TIME BASED ON THE RECOMMENDATIONS OF THIS EXAM. BOARD CERTIFIED RADIOLOGISTS, ACCREDITED BY THE ACR AND FDA. FINAL REPORT Dictated: 10/20/2020 7:48 am Satya Key MD Signed (Electronic Signature): 10/20/2020 7:48 am Signed by: Satya Key MD Transcribed by: EDDI Technologist: [facility] Assessment: BI-RADS Category 1-Negative Recommendation: Normal interval follow-up Normal [facility] Consent for Treatmenton 09-28 Consent for Treatment [id number]#[id number]: 127 Normal [facility] Coding Summary.on 10-02-2020 Coding Summary. CD:[id number]:[id number] Gh0b Ww+PGhlYWQ+MX2WNUDaW03mv AApiD1PR0rEVT5VQISJBUFSJ E0LFI7zpHX4FUiqJ0BnauAx EwovtWXzNQ39TIh8VIS0uTmy YLcvhS2mgGNfG5g7GlGeEU18 lC24VCcdXSHlWnS8KuTxfnzn bWFy W5ioXiVptKAeGri+PHRhYmxl IHdpZHRoPScxMDAlJyBzdHls LO1bGu7kYIFjNMJpjRhquYTx OiBj k7yxIQTpIMnxVZ2zkJqjC4Sk cLJ5CYZcy4c0An82nDH+PHRk EOP0sTygWNftm324DbDkr2kd IDM3 bMOrWRskVWR4I48jy5A1KKLe JRPmFXT6pKF8oS9inUhvfeoa N2JxjVFsMeW0BTE8jCLzfD3o bGln oacnqS4yAqe+Q36OIG5AVIWP IB9TVhf8H4YbChtsmWM+PC90 EHNhUQ73wOGuoMWkb4ckxTp9 JzEw NWKpZPV2lYeoROrmk2RfUMNo J16dfKEzy9M5UEDxhEcnhOBy XdTmcGO8iW8lWBgtssdlc6dv dzsn Shjga4beea26oS03K05zXLbj DGFvCHS1BNDzXEXixZpctm8g gK5pAn5+IJymg0ggz5omwWr5 IjIw AVJyazYxlJpyOCF5b3SsWf53 G3OrdMfpl2WtWgt9en18qYZe z1H7nFF0PJkaPHEckJ1gKDkg ZnQ6 FRRyDeFdbZ67uIKxAPmbXr9v qAwnjMovNL8pPOAgeuhrABQt qB8aWQDlfTMlrHdwHO3mFOAj bjtm b837SmGaBNX6QQWufYNhG2Av sY3gHnOkROWwXJCbL9HrrEJe IXcsY975AHodXfB9LWBpuvLh Y2Fs VMSujSdhVqH9x8U0Vi9Ei1Lq fuwkOUF5LZahPLZ2MdE9YyBk FbB1L3LiPux7ILDmaMbkAM1a J3Bh TNJxmpigawictDK8QRLzMQDy wA42pTTmKZhfNu0nq7M1x629 XUPeFVIxmF42Tn6lxYppRUOr dCBU rO9luswej8tqskxrTdYwMGNl UQj5BJg3NGYynVxgIfMzFUQ9 RlC9APX9kZLgpO3cpHxnnxea dG9w Oyc+J20joQ8sXIU1BTU5zxsw SOAxmeHdXE03DX98V8KxKzjv dGFibGU+ULEjgqAtzUslZI5i YmFj k7nwt3PoTEscY5RsHZRoCIvi Tyl4ARJqDXK2nBC5kK2jLWYh KTybp8P3fTL5N0AcidZffg9t b2xs WGNhLNvxI02vfYMxx6E6ZJWb kVX8CXJzxZpfIkJchV02Gdt+ SLYpuYlda4QbTtapw6cwz1se dGg9 InNlCYAaazVjySpgKOR1o9Av Rz74Q70mZAqzKVWyDBYkXDEy AFZjiDcjjt3dcN4nYb0+PGNv bCB3 tYD7zC0nPVAbDcI1IYnaR003 SlYjeUYhKsdpz3dxo8ketZk5 OzWpHDZsxoJmqUzoWTI1e0Qw Lz48 Y52jYRqwSXCpORZwEVSoICLu vZurzq7rqR4rOp9+HP4di0iv ie70fE24cFR+YBSxTSQ4yPpu PSdw KVAhtX2aCQhtAmC5ZVWlAfCv xH01iWTsXGyxHh2hlCfyhRfv CZ9jUZReywknk854TaIhk7pm IDEw mRJqPAlrMRQ9E13or0K5GKDc PLFbQIC9oEJ9bF7luXzfeknp bGVmdDsgdmVydGljYWwtYWxp Z246 IHRvcDsnPlBhdGllbnQgTmFt LEe0W1BjTby5AJWetTfdQP9s bIJiKKeeZg7geJobmCamZX2b NTBp dkvty961QiUur3vuNQQohEYw JQfzLTY3E51wq4U2OMYwMBWb TTK7wSW8zX5plQewsxawvKAb dDsg qsErbRdjFOsfWIatZ595LZGa zGlhMtLmukYqRWAbnDD5KZ81 OH52mAMtn3S4hVH2S6WxAZOx bmct hicdxQR7GXNyEUZfcT44On1n fYznTh4kGPEaBQY5QVJjaQJo D8NdpB0mPgRyYGAbPKIxH7Vs eHQt RVtxF678NWmeXcN9HSRfocTd O9ScQNRhuMcaAxJ7m9J0Vj0M L8L9CF35AL73nCKhk1E4tBE3 J3Bh LREcmiuyqujkdJU5PSXdIOTg pR49Dd8uyVirGe6cASVqHBT8 IDFdzTYzP4KtdN2aFoVsQRVk MDAw J9AjdETkQEooR948BNbfXwU9 ZEUjahIpA0GyXGGoiIogRfI6 g2G0Jf8GUAf1WR60VV35jDTp c3R5 cKE7I1FmUPMyiweezepqeQZ5 STBuBINoyA01Ns1ocWcfAp7v KRHqGMX8CGAxbWAbX7HroP8b OiAj WPArLYLoA7EdrQEsRZmsW983 NUtqTaU8YODfwvKvR1AwCPIn iNwbSjV5m7P8Ds3TRBIvED95 IFR5 ySJ5YU51TG06S7WuXpmxcGCx bGU+PHRhYmxlIHdpZHRoPScx OURgKwWybXvuJA2vEz0nWMPt LWNv rXmciRWaRuUgc6ebXCMjSJyp FV6kkIleK2VepYA7TNMyv7q5 Kk18E68sB3VxiBI+PGNvbCB3 aWR0 zI3eLxMuNvJ8HLvtH526OtPe kMNbYmkvn6tnj4njjLy2MsO1 AOHmhgTitHfpXOL7k6LfXu92 Y29s IHdpZHRoPSIxNSUiIHZhbGln gs0abN2rBl9+UUPpcHC6xOF3 gL0tEqQxWqG2MCdyF862AxIt cCIv Aggcg2vgx3vieOj1KfRdLHQx juQirNcgLGN3k0NgLz52Q2Ao uBode3MaNdc3um35vBQvv8K7 bGU9 G0VlHVFkrimclKHifVceQJ2t YJZqmuwbDEKvbE6lEULzA1j6 HxTlDuZ0XCwwT7SixeI9IYTg cHQg CTqlKHA4W69mh3K5OCFrZRWs NFP4oNW7uR6koXlrjpdngRNq bOlpclJylHcvLUctBXpqP438 IHRv mEktQKKrxG1wKQNqnHJzwZpg YQ7uNYNcajqtQmnULNtTVyHV UjmoDYuHAwLLEPHHSQj3X2Zq Pjx0 XVEqiXpoOJ0zrFOmFXlqXv0i qGdivYqqQK8oPIXakumyCXTv bY3hLABycLXlgPrsUH7sSZCk bjtm j876EoViHMH4UXGgcYHcM5Ov dC6nMiDgIRGdXYAxT5MreBUv BLqpM953XJtlKjN4EUVkkcGc Y2Fs ULPrlTpdHoI1m7X8Sv6lSn7p LK9gUKQ3FQ29EV90kYXxu7B5 oPZ2D5JiAHYrvpuenxcigCZ6 IDAu HEZjxU73fMWvMSmeLr2ar2U1 z692GJJlLYWenW99Zw5mgQfh FRBbtZPYbM2cggsuy1anximd IzAw ODKtADh6UCd5CAFigRgyFiHv QPR2GdP9KVS2mQEcoU4pzLmn dnvjoE5wNhd+NTQgWWVhcnM8 L3Rk Zbc7SOXqcHtbMX2csOLqBIse Du1hdTpabOfkIL0hDUMudzvg YNFckX5rEPSeaMGixScnOD1t NTBp ngxyx737IqNyVQJ5CTScmREk S3NccM7xRxZfCYWrEUBqM1Ib cTUvJZauY401OBceKuT5LQEg cnRp O8RrYRGyfZykUmT1q9T4Vj5D XG6kxQX3T3RcArn9QKKriNsj LK4naMYhEXtaOw5ogJqhmEvo MC4w DJDzckecPSQynF6fCZBpbKHj cKxwJH7aEBWraahrl673NmWu YHK2ALFmcICrX4XdaS8kFjMg MDAw KAFzK6TebGHaBFriO277COly LqW9EKDnytHlZ4NlYXXjkMfp CzN3a8L0Un3FuLRrZAMrII34 PC90 CI39I9ZlTqsthCAeaXY+PHRh YmxlIHdpZHRoPScxMDAlJyBz dZpeHH6aYo9zNRJjBIXuzAdt cHNl WzWdn7neGALbMVqtRB7slEzj W2PxiKF0SFBww7e4Rx32I12c L0ZhiTR+AAWwoQF4gYG2zU9c MzAl RgU7HJcqL069WwNxpLKeSktn u4zcz7jdzTt5IrDpGIFmkoFw oGpfCJU7v4EbRv95L35oJZfp ZHRo LYRiHAIuJUEnoOrhwq7rzI0l Ii8+ZVGtzEA0dLI6pU2oCuTc WmE6EKwqP633QuReyMCjGmbn Y29s W9EdmBS+ZEWxIft2UWWmvXkd HA6zpJYtIItoYc0fWAC9MhDc DsXbKOeiE6ReLTNzveghgqrn aHQ6 ETMvKHKgnD36Mz2zlKtyAp7k ISAeWSF4WCBedJWeD7YrsU6j JpDzKSVxQZTfX5XewCVsBXky Z246 GIkwAnA3QZDphxFmI3TyAKGz bShnRcG9q6T9Qo5CvIagvCKb GX1nWhStCKg2M4PiXah6SPFy dHls UK6drZByTYbrQr3ozZeeeBzb VS1gSZCjpkfgz374KcIod0hl XELuwHTzCVwyJZC1X30oq1M3 ICMw YJZiLUO5uZN9qD6wpRhsjjib bGVmdDsgdmVydGljYWwtYWxp T125MEOxmSsgInZQHzc8I4Ef Pjx0 ZXTczAtgGX9mkOStUUgjQn1j fJbecCkqNJ2kAMLlyltfb003 LdVbl2zvFIDfbLGcOAovHCK9 Y29s d1B3EYHwKMEtBLA6kYC9eP5s bGlnbjogbGVmdDsgdmVydGlj FBnrEPniO375LJEatZnuXx4Z Tjo8 E3AcQzw6VJGkjUouVI7upVXd XBivUb6rcTglzCylMS2yWHXy trvbg019HaZte5pcUWYdiTQn VGlt NSU6N25sa2E3HEZoDEInCVX5 yWC3rD1kgQhqypbfqDPvgYzz thVjgElmHYyhVYwqH104GLWt cDsn PlBheWVyOjwvdGQ+VS42rl24 P6UfTjjqXgh5THNaIUZ3yCK0 lY5lLKGaHTrwn6H1tTL1V6Kb cmRl ci1j (more content not included)... Normal [facility] Auto Diffon 09-25-2020 Basophils/100 WBC (Bld) 1.0 % Normal 0.0-2.0 [facility] Comment on above: Order Comment: Order Added by Discern Expert. Performed By: #### 2 [id number], [id number] #### [facility] [address] [place] [address] Basophils/Leukocy juan Auto (Bld) [Pure # fraction] 0.0 E9/L Normal 0.0-0.2 [facility] Comment on above: Order Comment: Order Added by Discern Expert. Performed By: #### 2 [id number] #### [facility] [address] [place] [address] Eosinophils/100 WBC (Bld) 5.0 % Normal 0.0-8.0 [facility] Comment on above: Order Comment: Order Added by Discern Expert. Performed By: #### 2 [id number] #### [facility] [address] [place] [address] Eosinophils/Leuko cytes Auto (Bld) [Pure # fraction] 0.2 E9/L Normal 0.0-0.5 [facility] Comment on above: Order Comment: Order Added by Discern Expert. Performed By: #### 2 [id number], [id number] #### [facility] [address] [place] [address] Lymphocytes/100 WBC (Bld) 36.6 % Normal 14.0-50.0 [facility] Comment on above: Order Comment: Order Added by Discern Expert. Performed By: #### 2 027831, 0745486, 92389717, 8739865, 5671506 #### [facility] [address] [place] [address] Lymphocytes/Leuko cytes Auto (Bld) [Pure # fraction] 1.5 E9/L Normal 1.0-4.0 [facility] Comment on above: Order Comment: Order Added by Chetan Expert. Performed By: #### 2 378695, 1364850, 21017769, 6006995, 5791640 #### [facility] [address] [place] [address] 46100 Monocytes/100 WBC (Bld) 7.7 % Normal 4.0-14.0 [facility] Comment on above: Order Comment: Order Added by Chetan Expert. Performed By: #### 2 615643, 4821711, 12850460, 3989171, 0764677 #### [facility] [address] [place] [address] Monocytes/Leukocy juan Auto (Bld) [Pure # fraction] 0.3 E9/L Normal 0.2-1.0 [facility] Comment on above: Order Comment: Order Added by Chetan Expert. Performed By: #### 2 970873, 1358394, 55972995, 4393109, 5832964 #### [facility] [address] [place] [address] Neutrophils/100 WBC (Bld) 49.7 % Normal 36.0-75.0 [facility] Comment on above: Order Comment: Order Added by Chetan Expert. Performed By: #### 2 887497, 3354223, 65715213, 9412702, 6666028 #### [facility] [address] [place] [address] Neutrophils/Leuko cytes Auto (Bld) [Pure # fraction] 2.0 E9/L Normal 2.0-7.5 [facility] Comment on above: Order Comment: Order Added by Discern Expert. Performed By: #### 2 125750, 7925880, 26038230, 1146350, 0644686 #### [facility] [address] [place] [address] CBC w/ Auto Diffon Erythrocyte distribution width (RBC) [Ratio] 13.0 % Normal 10.9-14.2 [facility] Comment on above: Performed By: #### 2 175508, 0556529, 72275813, 5878511, 6570640 #### [facility] [address] [place] [address] Hematocrit (Bld) [Volume fraction] 39.1 % Normal 34.0-46.0 [facility] Comment on above: Performed By: #### 2 496460, 3417160, 74522027, 0162611, 7468930 #### [facility] [address] [place] [address] Hemoglobin (Bld) [Mass/Vol] 13.3 g/dL Normal 12.0-16.0 [facility] Comment on above: Performed By: #### 2 397181, 2499856, 03323053, 8637989, 3604117 #### [facility] [address] [place] [address] MCH (RBC) [Entitic mass] 28.7 pg Normal 27.0-34.0 [facility] Comment on above: Performed By: #### 2 462277, 3713688, 63701673, 0324150, 0223490 #### [facility] [address] [place] [address] MCHC (RBC) [Mass/Vol] 34.0 g/dL Normal 31.4-36.0 [facility] Comment on above: Performed By: #### 2 105955, 8304327, 29798707, 7298045, 3447328 #### [facility] [address] [place] [address] MCV (RBC) [Entitic vol] 84.4 fL Normal 80.0-100.0 [facility] Comment on above: Performed By: #### 2 055282, 7403599, 16166992, 7011594, 3546340 #### [facility] [address] [place] [address] Platelet mean volume (Bld) [Entitic vol] 8.0 fL Normal 6.4-10.8 [facility] Comment on above: Performed By: #### 2 825136, 8963518, 49306515, 1514680, 7102949 #### [facility] [address] [place] [address] Platelets (Bld) [#/Vol] 222.0 E9/L Normal 150.0-500.0 [facility] Comment on above: Performed By: #### 2 949297, 7133383, 25157952, 7168713, 7008157 #### [facility] [address] [place] [address] RBC (Bld) [#/Vol] 4.6 E12/L Normal 4.3-5.9 [facility] Comment on above: Performed By: #### 2 638763, 4728291, 70943338, 3946691, 8173136 #### [facility] [address] [place] [address]144 WBC corrected for nucl RBC Auto (Bld) [#/Vol] 4.1 E9/L Normal 4.0-11.0 [facility] Comment on above: Performed By: #### 2 807075, 7731118, 99228330, 8736521, 6770139 #### [facility] [address] [place] [address] CMPon 09-25-2020 Albumin [Mass/Vol] 4.0 g/dL Normal 3.3-5.0 [facility] Comment on above: Performed By: #### 2 586967, 7778196, 31541444, 6073762, 0352587 #### [facility] [address] [place] [address] Albumin/Globulin (S) [Mass conc ratio] 1.3 Normal 1.1-2.2 [facility] Comment on above: Performed By: #### 2 832756, 3477372, 13992617, 2716057, 5134233 #### [facility] [address] [place] [address] ALP [Catalytic activity/Vol] 64 Int._Unit/L Normal 21-98 [facility] Comment on above: Performed By: #### 2 838988, 1513560, 74730556, 0110680, 6493982 #### [facility] [address] [place] [address] ALT No additional P-5'-P [Catalytic activity/Vol] 24 Int._Unit/L Normal 6-46 [facility] Comment on above: Performed By: #### 2 585553, 2711322, 19258911, 4146154, 2540385 #### [facility] [address] [place] [address] Anion gap [Moles/Vol] 13 mmol/L Normal 6-16 [facility] Comment on above: Performed By: #### 2 685063, 4742887, 79030375, 9953907, 6562831 #### [facility] [address] [place] [address] AST [Catalytic activity/Vol] 17 Int._Unit/L Normal 5-43 [facility] Comment on above: Performed By: #### 2 714831, 1464379, 70213576, 3827314, 6120775 #### [facility] [address] [place] [address] Bilirubin [Mass/Vol] 1.0 mg/dL Normal 0.0-1.1 [facility] Comment on above: Performed By: #### 2 262888, 1120841, 30243688, 8676592, 0164424 #### [facility] [address] [place] [address] Calcium [Mass/Vol] 8.9 mg/dL Normal 8.9-11.1 [facility] Comment on above: Performed By: #### 2 170763, 8235716, 42774308, 7422504, 6958412 #### [facility] [address] [place] [address] Chloride [Moles/Vol] 99 mmol/L Low 101-111 [facility] Comment on above: Performed By: #### 2 756291, 5343723, 32847982, 9135639, 6948691 #### [facility] [address] [place] [address] CO2 [Moles/Vol] 30 mmol/L Normal 21-31 [facility] Comment on above: Performed By: #### 2 115566, 8749555, 53846921, 4426664, 7606412 #### [facility] [address] [place] [address] Creatinine [Mass/Vol] 0.6 mg/dL Normal 0.5-1.3 [facility] Comment on above: Performed By: #### 2 051473, 4655335, 71653408, 0805464, 4928799 #### [facility] [address] [place] [address] Globulin (S) [Mass/Vol] 3.1 g/dL Normal 1.4-4.0 [facility] Comment on above: Performed By: #### 2 531489, 5079993, 08474635, 5749324, 1232084 #### [facility] [address] [place] [address] Glucose [Mass/Vol] 98 mg/dL Normal 55-199 [facility] Comment on above: Result Comment: If t his glucose result represents a fasting glucose, interpretation should refer to the following reference range: 55-99 mg/dL Performed By: #### 2 448155, 1085020, 03588770, 0239175, 6858123 #### [facility] [address] [place] [address] Potassium [Moles/Vol] 3.4 mmol/L Low 3.5-5.3 [facility] Comment on above: Performed By: #### 2 465858, 8719037, 51606565, 3702409, 7633389 #### [facility] [address] [place] [address] Protein [Mass/Vol] 7.1 g/dL Normal 6.0-7.8 [facility] Comment on above: Performed By: #### 2 495625, 1653059, 99831760, 7179772, 4199164 #### [facility] [address] [place] [address] Sodium [Moles/Vol] 139 mmol/L Normal 135-145 [facility] Comment on above: Performed By: #### 2 902741, 4690028, 20592388, 7066436, 7461362 #### [facility] [address] [place] [address] Urea nitrogen [Mass/Vol] 22 mg/dL High 5-21 [facility] Comment on above: Performed By: #### 2 191416, 7936473, 40626596, 3868245, 2498248 #### [facility] [address] [place] [address] Urea nitrogen/Creatini ne [Mass ratio] 37 No Units High 10-20 [facility] Comment on above: Performed By: #### 2 340686, 9677766, 04766364, 8502850, 4797396 #### [facility] [address] [place] [address] Consent for Treatmenton 08-29 Consent for Treatment [id number]#[id number]: 127 Normal [facility] Lipid Panelon 09-25-2020 Cholesterol [Mass/Vol] 182 mg/dL Normal 120-200 [facility] Comment on above: Performed By: #### 2 970654, 2012962, 29778877, 2400724, 1307725 #### [facility] [address] [place] [address] Cholesterol in HDL [Mass/Vol] 46 mg/dL Invalid Interpretation Code [facility] Comment on above: Result Comment: HDL > or equal to 60 mg/dL: Low cardiovascular risk HDL < 40 mg/dL : High cardiovascular risk Performed By: #### 2 276774, 7493526, 16060011, 9933809, 5400193 #### [facility] [address] [place] [address] Cholesterol in LDL [Mass/Vol] 113 mg/dL Normal <=129 [facility] Comment on above: Performed By: #### 2 983017, 2609184, 58753060, 7233857, 1942187 #### [facility] [address] [place] [address] Cholesterol in VLDL [Mass/Vol] 9 mg/dL Normal 7-40 [facility] Comment on above: Performed By: #### 2 632753, 4150474, 45120784, 5075679, 3223497 #### [facility] [address] [place] [address] Triglyceride [Mass/Vol] 44 mg/dL Normal <=149 [facility] Comment on above: Performed By: #### 2 951093, 8777851, 75709205, 9401227, 1183072 #### [facility] [address] [place] [address] Physician Orderon 09-25-2020 Physician Order [id number]#1.00CD :127 Normal [facility] eGFRon 09-25-2020 GFR/1.73 sq M.predicted among blacks MDRD (S/P/Bld) [Vol rate/Area] mL/min/{1.73_m2} Normal >=59 [facility] Comment on above: Order Comment: Order added by Discern Expert. Result Comment: eGFR is race adjusted. AA=. Performed By: #### 2 041169, 7747758, 55028637, 2035767, 2354438 #### [facility] [address] [place] [address] GFR/1.73 sq M.predicted among non-blacks MDRD (S/P/Bld) [Vol rate/Area] mL/min/{1.73_m2} Normal >=59 [facility] Comment on above: Order Comment: Order added by Discern Expert. Result Comment: Merchandising Director adrian kidney disease could be indicated at eGFR's of less than 60 mL/min/1.73m2. Kidney failure is indicated at less than 15 mL/min/1.73m2. Performed By: #### 2 441111, 8964427, 93099199, 6209943, 6389558 #### [facility] [address] [place] [address] Consent for COVID Vaccineon 07-17-2020 SARS-CoV-2 (COVID-19) RNA HILARY+probe Ql (Unsp spec) [id number]#1.00CD: 127 Normal [facility] Consent for COVID Vaccineon 06-09-2020 SARS-CoV-2 (COVID-19) RNA HILARY+probe Ql (Unsp spec) [id number]#1.00CD :127 Normal [facility] Consent for Treatmenton 05-28 Consent for Treatment [id number] :127 [facility] Coding Summary.on 06-07-2020 Coding Summary. CODING DATE: [facility] STATUS: PAYOR: [facility] [place] [facility] DESCRIPTION [employer] - Level 1B ($11-$20) ADMIT DX: REASON FOR VISIT DX: Z23 Encounter for immunization FINAL DX: PRINCIPAL: Z23 Encounter for immunization SECONDARY: PYMT PROC APC STAT DESCRIPTION DOCTOR NAME DATE NOTE: The code number assigned matches the documented diagnosis and / or procedure in the patient's chart. However, the narrative phrase printed from the coding software may appear abbreviated, or result in slightly different terminology. Coded By: Jana Rapp CphT Date Saved: 06/07/2020 06:08 pm Normal [facility] Encounters Encounter Date Encounter Type Care Provider Facility Start: 11-23-2023 End: 11-23-2023 ambulatory GIULIA ESPARZA Not Available Start: 10-08-2023 End: 10-08-2023 ambulatory GIULIA ESPARZA Not Available Start: 08-13-2023 End: 08-13-2023 ambulatory INDIRA LOCO Not Available Start: 07-30-2023 End: 07-30-2023 ambulatory INDIRA LOCO Not Available Start: 07-17-2023 End: 07-17-2023 ambulatory BG FARMER Not Available Start: 11-08-2021 End: 11-09-[address] POOL SORIA Facility:[facility] Start: 10-29-2021 End: 10-29-[address] MONIQUE ZAVALA Facility:[facility] Start: 10-28-2021 End: 10-28-2021 ambulatory VAISHALI WARD Facility:[facility] Start: 10-22-2021 End: 10-22-2021 ambulatory VAISHALI WARD Facility:[facility] Start: 10-11-2021 End: 10-12-[address] NICO DOBSON Facility:[facility] Start: 10-08-2021 Encounter for genera l adult medical examination without abnormal findings DR GIULIA ESPARZA [facility] Start: 10-04-2021 End: 10-05-[address] GIULIA ESPARZA Facility:[facility] Start: 10-04-2021 End: 10-05-2021 Encounter for general adult medical examination without abnormal findings DR GIULIA ESPARZA Facility:[facility] Start: 02-27-2021 End: 02-27-2021 ambulatory VAISHALI WARD Facility:[facility] Payers Date Payer Category Payer Private Health Insurance [id number] 2019 Unknown [id number] 1966 Unknown [id number] 2.16.84 [id number] 1966 Unknown [id number] 2.16.84 0.1.510910.3.579.2.593 1966 Unknown [id number] 2.16.84 0.1.576494.3.579.2.593 1966 Unknown [id number] 2.16.84 0.1.463894.3.579.2.593 1966 Unknown [id number] 2.16.84 0.1.035680.3.579.2.593 1966 Unknown [id number] 2.16.84 0.1.180872.3.579.2.593 1966 Unknown [id number] 2.16.84 0.1.384733.3.579.2.593 1966 Unknown [id number] 2.16.84 0.1.833543.3.579.2.1259 1966 Unknown [id number] 2.16.84 0.1.457959.3.579.2.1259 1966 Unknown [id number] 2.16.84 0.1.270393.3.579.2.1259 1966 Unknown [id number] 2.16.84 0.1.048513.3.579.2.1259 1966 Unknown [id number] 2.16.84 0.1.628183.3.579.2.1259 Summary Purpose Family History No Family History Records FoundNo Family History Records FoundNo Family History Records Found Advance Directives No Advanced Directives Records FoundNo Advanced Directives Records FoundNo Advanced Directives Records Found Additional Source Comments INFORMATION SOURCE (unrecogn ized section and content) DATE CREATED AUTHOR 10/25/2020 [facility] DATE CREATED AUTHOR AUTHOR'S ORGANGARO NEGRETE 11/11/2021 [facility] DATE CREATED AUTHOR AUTHOR'S ORGANIZ PENELOPE 11/24/2023 [facility] EPIC FOR RECORDS PERTAINING TO PATIENTS WHO ARE OR HAVE BEEN ENROLLED IN A CHEMICAL DEPENDENCY/SUBSTANCEABUSE PROGRAM, SOME INFORMATION MAY BE OMITTED. This clinical summary was aggregated from multiple sources. Caution should be exercised in using it in the provision of clinical care. This summary normalizes information from multiple sources, and as a consequence, information in this document may materially change the coding, format and clinical context of patient data. In addition, data may be omitted in some cases. CLINICAL DECISIONS SHOULD BE BASED ON THE PRIMARY CLINICAL RECORDS. [employer] [facility]. provides no warranty or guarantee of the accuracy or completeness of information in this document.
[2023-12-08 10:09] LABS: Age Gdln ACOG Testing Note (.); HPV Aptima Negative (Negative); IGP, Aptima HPV, rfx 16/18,45 Note (.)
== END 2023-12-02 19:42 | disposition home or self-care (01) ==
LOC: LAB 19:41
PROVIDERS: PCP Family Medicine; Visit Provider Physician Assistant
DX: Z01.419 Encounter for gynecological examination (general) (routine) without abnormal findings (principal)
CPT/HCPCS: 87624; 88175

== ENCOUNTER 2024-12-05 14:35 | Outpatient (REF) | payer OTHER, SELFPAY ==
--- OUTSIDE RECORDS SUMMARY | 2024-12-05 17:15 | XMS_ITS | CCD ---
Author Organization [facility] Care Team Providers Care Cto Name Role Phone WEST, DR POOL Aaron Consulting Unavailable REQUEST, DR CHACKO LISTED Primary Care Unavaila ble SALLY, DR AMAYA Admitting Unavailable SALLY, DR AMAYA Attending Unavailable SALLY, DR AMAYA Consulting Unavailable SALLY, DR AMAYA Admitting Unavailable SALLY, DR AMAYA Attending Unavailable SALLY, DR AMAYA Consulting Unavailable REQUEST, NONE LISTED Primary Care Unavaila ble IJEOMA, YU Attending Unavailable IJEOMA, YU Consulting Unavailable IJEOMA, YU Admitting Unavailable REQUEST, NONE LISTED Primary Care Unavaila ble IJEOMA, YU Consulting Unavailable IJEOMA, YU Admitting Unavailable IJEOMA, YU Attending Unavailable REQUEST, NONE LISTED Primary Care Unavaila ble ZIEBER, DR NICO Decker Consulting Unavailable HEMMER, DR DEVIKA Davis Admitting Unavailable HEMMER, DR DEVIKA Davis Attending Unavailable HEMMER, DR DEVIKA Davis Consulting Unavailable HEMMER, DR DEVIKA Davis Consulting Unavailable MISC, DR TREVINO Primary Care Unavailable HEMMER, DR DEVIKA Davis Admitting Unavailable HEMMER, DR DEVIKA Davis Attending Unavailable IJEOMA, YU Consulting Unavailable IJEOMA, YU Admitting Unavailable IJEOMA, YU Attending Unavailable Oralia Reeder MD Primary Care Provider DEVIKA ESPARZA Attending Unavailable HEMDEVIKA RAMIREZ Attending Unavailable JUAN LUISTWYLA Attending Unavailable DEVIKA ESPARZA Attending Unavailable Medications Current Medications Medication Drug Class(es) Dates Sig (Normalized) Sig (Original) aspirin 81 mg chewable tablet (16 sources) Platelet Aggregation Inhibitor, Nonsteroidal Anti-inflammatory Drug aspirin (Aspirin Low Dose) 81 MG chewable tablet Chew 1 tablet 1 (one) time each day at the same time. Active calcium carbonate 1500 mg oral tablet (16 sources) take 1 tablet by mouth once daily calcium carbonate 1500 (600 Ca) MG tablet Take 1 tablet by mouth 1 (one) time each day at the same time. Active cetirizine hydrochloride 10 mg oral tablet (16 sources) Histamine-1 Receptor Antagonist take 1 tablet by mouth once daily cetirizine (ZyrTEC ALLERGY) 10 MG tablet Take 10 mg by mouth 1 (one) time each day at the same time. Active estradiol 0.1 mg/ml vaginal cream (1 source) Estrogen Start: 12-05-2024 estradiol (Estrace) 0.1 MG/GM vaginal cream Indications: Vaginal itching 2g vaginal daily for 2 weeks, then 2 times weekly following initial 2 weeks 42.5 g 12/05/2024 Active Start: 12-05-2024 estradiol (Est race) 0.1 MG/GM vaginal cream Indications: Vaginal itching 2g vaginal daily for 2 weeks, then 2 times weekly following initial 2 weeks 42.5 g 12/05/2024 Active Fish Oils (16 sources) take 1 capsule by mouth once daily omega-3 (Fish Oil) 1200 MG capsule Take 1 capsule by mouth 1 (one) time each day at the same time. Active fluticasone propionate 0.05 mg/actuat metered dose nasal spray (16 sources) Corticosteroid Start: take 2 spray(s) nasal route once daily fluticasone (Flonase) 50 MCG/ACT nasal spray Indications: Acute frontal sinusitis, recurrence not specified ADMINISTER 2 SPRAYS INTO EACH NOSTRIL EVERY DAY 15.8 mL 3 08/13/2023 Active hydroCHLOROthiazide 25 mg / lisinopril 20 mg oral tablet (16 sources) Thiazide Diuretic, Angiotensin Converting Enzyme Inhibitor Start: take 1 tablet by mouth once daily lisinopril-hydroCH LOROthiazide 20-25 MG tablet Indications: Essential (primary) hypertension Take 1 tablet by mouth Daily 90 tablet 3 01/25/2024 Active Start: 12-25-2022 take 1 tablet by carri th once daily lisinopril-hydroCHLOROthiazide 20-25 MG tablet Indications: Essential (primary) hypertension (CMS/HCC) TAKE 1 TABLET BY MOUTH EVERY DAY 90 tablet 3 12/25/2022 Active hydrocortisone 25 mg/ml rectal cream (1 source) Corticosteroid Start: 12-05-2024 End: 01-04-2025 hydrocortisone (Anusol-HC) 2.5 % rectal cream Indications: Hemorrhoids, unspecified hemorrhoid type Insert into the rectum 2 (two) times a day as needed for hemorrhoids 28 g 1 12/05/2024 01/04/2025 Active mometasone furoate 1 mg/ml topical cream (15 sources) Corticosteroid Start: 11-23-2023 mometasone (Elocon) 0.1 % cream Indications: Flexural eczema Apply topically Daily 15 g 2 11/23/2023 Active Multiple Vitamin (MULTIVITAMINS PO) (16 sources) take 1 tablet by mouth once daily Multiple Vitamin (MULTIVITAMINS PO) Take 1 tablet by mouth 1 (one) time each day at the same time. Active omeprazole 40 mg delayed release oral capsule (16 sources) Proton Pump Inhibitor Start: 01-20-2024 take 1 capsule by mouth once daily omeprazole (PriLOSEC) [address] capsule Indications: Gastro-esophageal reflux disease without esophagitis Take 1 capsule (40 mg) by mouth Daily Do not crush or chew. 90 capsule 3 01/20/2024 Active Start: 12-25-2022 take 1 capsule by mo uth once daily omeprazole (PriLOSEC) [address] capsule Indications: Gastro-esophageal reflux disease without esophagitis TAKE 1 CAPSULE BY MOUTH EVERY DAY 90 capsule 3 12/25/2022 Active microencapsulated potassium chloride 10 meq extended release oral tablet (16 sources) potassium chlori de CR (Klor-Con M10) 10 MEQ ER tablet Take 10 mEq by mouth in the morning. Do not crush or chew. . Active predniSONE 10 mg oral tablet (2 sources) Start: 4 End: 4 take 1 tablet by mouth in the morning predniSONE (Deltasone) 10 MG tablet Indications: Flexural eczema Take 1 tablet (10 mg) by mouth in the morning and 1 tablet (10 mg) at noon. Do all this for 5 days. Take with breakfast and with lunch. 10 tablet 11/23/2023 11/28/2023 Active vitamin b12 1 mg extended release oral tablet (17 sources) Vitamin B12 Start: 5 End: 5 take 1 tablet by mouth once daily Cyanocobalamin (Vitamin B12) 1000 MCG tablet controlled-release Take 1 tablet by mouth Daily 10/17/2024 Active Problems Active Problems Problem Classification Problem Date Documented Date Episodic/Chronic Allergic reactions (2 sources) Flexural eczema; Translations: [Flexural eczema] 11-23-2023 Chronic Conduction disorders (18 sources) Right bundle branch block; Translations: [Unspecified right bundle-branch block] Onset: 09-03-2007 10-05-2022 Chronic Deficiency and other anemia (1 source) Anemia, unspecified; Translations: [ANEMIA UNSPECIFIED] Onset: 10-08-2021 Episodic Esophageal disorders (18 sources) Gastroesophageal reflux disease; Translations: [Gastro-esophageal reflux disease without esophagitis] Onset: 10-05-2022 10-05-2022 Chronic Essential hypertension (20 sources) Essential (primary) hypertension; Translations: [Essential hypertension] Onset: 10-08-2021 10-05-2022 Chronic Hemorrhoids (1 source) Hemorrhoids; Translations: [Unspecified hemorrhoids] 12-05-2024 Episodic Immunizations and screening for infectious disease (1 source) Encounter for screening for human papillomavirus (HPV); Translations: [ENC SCREENING HUMAN PAPILLOMAVIRUS] Onset: 11-01-2021 Episodic Malaise and fatigue (2 sources) Fatigue; Translations: [Other fatigue] 10-10-2024 Episodic Menopausal disorders (18 sources) Atrophic vaginitis; Translations: [Postmenopausal atrophic vaginitis] Onset: 10-05-2022 10-05-2022 Chronic Nonmalignant breast conditions (18 sources) Fibrocystic disease of breast; Translations: [Diffuse cystic mastopathy of unspecified breast] Onset: 10-05-2022 10-05-2022 Chronic Osteoporosis (3 sources) Postmenopausal osteoporosis; Translations: [Age-related osteoporosis without current pathological fracture] 12-02-2023 Chronic Other female genital disorders (1 source) Pruritus of vagina; Translations: [Other specified noninflammatory disorders of vagina] 12-05-2024 Episodic Other nutritional; endocrine; and metabolic disorders (1 source) Obesity, unspecified; Translations: [OBESITY UNSPECIFIED] Onset: 10-08-2021 Chronic Other nutritional; endocrine; and metabolic disorders (20 sources) Body mass index 30+ - obesity; Translations: [Obesity, unspecified] Onset: 10-05-2022 10-05-2022 Chronic Other nutritional; endocrine; and metabolic disorders (2 sources) Abnormal weight gain; Translations: [Abnormal weight gain] 10-10-2024 Episodic Other screening for suspected conditions (not mental disorders or infectious disease) (11 sources) Encounter for screening for malignant neoplasm of cervix; Translations: [Encounter for screening mammogram for malignant neoplasm of breast] Onset: 10-11-2021 Episodic Other upper respiratory disease (16 sources) Seasonal allergic rhinitis; Translations: [Other seasonal allergic rhinitis] Onset: 10-05-2022 10-05-2022 Chronic Other upper respiratory disease (2 sources) Allergic rhinitis due to pollen; Translations: [Allergic rhinitis due to pollen] 10-10-2024 Chronic Residual codes; unclassified (18 sources) Sleep apnea; Translations: [Sleep apnea, unspecified] Onset: 10-05-2022 10-05-2022 Chronic Residual codes; unclassified (4 sources) Asymptomatic menopausal state; Translations: [ASYMPTOMATIC MENOPAUSAL STATE] Onset: 11-08-2021 Episodic Residual codes; unclassified (7 sources) FH: Thyroid disorder; Translations: [Family history of other endocrine, nutritional and metabolic diseases] Onset: 10-10-2024 10-10-2024 Episodic Unclassified (3 sources) CONTACT W/AND (SUSP) EXPOS COVID-19; Translations: [CONTACT W/AND (SUSP) EXPOS COVID-19] Onset: 10-31-2021 Viral infection (1 source) COVID-19; Translations: [COVID-19] Onset: 10-24-2021 Past or Other Problems Problem Classification Problem Date Documented Da te Episodic/Chronic Adjustment disorders (16 sources) Adjustment disorder with depressed mood; Translations: [Adjustment disorder with depressed mood] Onset: 10-05-2022 Resolved: 10-06-2022 10-06-2022 Chronic Cataract (16 sources) Nuclear senile cataract; Translations: [Age-related nuclear cataract, unspecified eye] Onset: 10-05-2022 Resolved: 10-06-2022 10-06-2022 Chronic Deficiency and other anemia (18 sources) Anemia; Translations: [Anemia, unspecified] Onset: 06-29-2008 10-05-2022 Episodic Fluid and electrolyte disorders (19 sources) Hypokalemia; Translations: [Hypokalemia] Onset: 04-17-2009 10-05-2022 Episodic Unclassified (1 source) CONTACT W/AND (SUSP) EXPOS COVID-19; Translations: [CONTACT W/AND (SUSP) EXPOS COVID-19] Onset: 10-28-2021 Results Test Name Value Interpretation Reference Range Facility CBC (INCLUDES DIFF/PLT)on Basophils (Bld) [#/Vol] 0.02 10*3/uL Normal 0-200 [facility] Comment on above: Performed By: #### 1 0231, 6399 #### [facility] [address] [place] [address] [employer] Mechanic: Sonya Junior #### 7600, 05266, 03875 #### [facility] [place] [address] [employer] Mechanic: Travis Khan MD Basophils/100 WBC (Bld) 0.5 % Normal [facility] Comment on above: Performed By: #### 1 023, 6399 #### [facility] [address] [place] [address] [employer] Mechanic: Sonya Junior #### 7600, 39748, 35732 #### [facility] [place] [address] [employer] Mechanic: Travis Khan MD Eosinophils (Bld) [#/Vol] 0.128 10*3/uL Normal 15-500 [facility] Comment on above: Performed By: #### 1 023, 6399 #### [facility] [address] [place] [address] [employer] Mechanic: Sonya Junior #### 7600, 80676, 05993 #### [facility] [address], [address] [place] [address] [employer] Mechanic: Travis Khan MD Eosinophils/100 WBC (Bld) 3.2 % Normal [facility] Comment on above: Performed By: #### 1 0231, 6399 #### [facility] [address] [place] [address] [employer] Mechanic: Sonya Junior #### 7600, 57540, 12580 #### [facility] [address], [address] [place] [phone] [employer] Mechanic: Travis Khan MD Erythrocyte distribution width (RBC) [Ratio] 13.2 % Normal 11.0-15.0 [facility] Comment on above: Performed By: #### 1 0231, 6399 #### [facility] [id number] [employer]agli[employer] Mechanic: Sonya Junior #### 7600, 29618, 39598 #### [facility] [address] , [address] [place] [address] [employer] Mechanic: Travis Khan MD Hematocrit (Bld) [Volume fraction] 41.2 % Normal 35.0-45.0 [facility] Comment on above: Performed By: #### 1 0231, 6399 #### [facility] [id number] [employer]ag[employer] Mechanic: Sonya Junior #### 7600, 33608, 70235 #### [facility] [address] , [address] [place] [address] [employer] Mechanic: Travis Khan MD Hemoglobin (Bld) [Mass/Vol] 13.6 g/dL Normal 11.7-15.5 [facility] Comment on above: Performed By: #### 1 0231, 6399 #### [facility]-[address] [address] [employer] Mechanic: Sonya Junior #### 7600, 97838, 23703 #### [facility] [address], [address] [place] [phone] [employer] Mechanic: Travis Khan MD Lymphocytes (Bld) [#/Vol] 1.652 10*3/uL Normal 850-3900 [facility] Comment on above: Performed By: #### 1 0231, 6399 #### [facility] [address] [place] [phone] [employer] Mechanic: Sonya Junior #### 7600, 37406, 23007 #### [facility] [address], [address] [place] [address] [employer] Mechanic: Travis Khan MD Lymphocytes/100 WBC (Bld) 41.3 % Normal [facility] Comment on above: Performed By: #### 1 0231, 6399 #### [facility] [address] [place] [address] [employer] Mechanic: Sonya Junior #### 7600, 03445, 24777 #### [facility] [address], [address] [place] [address] [employer] Mechanic: Travis Khan MD MCH (RBC) [Entitic mass] 28.5 pg Normal 27.0-33.0 [facility] Comment on above: Performed By: #### 1 0231, 6399 #### [facility] [address] [place] [address] [employer] Mechanic: Sonya Junior #### 7600, 78656, 77657 #### [facility] [address], [address] [place] [address] [employer] Mechanic: Travis Khan MD MCHC (RBC) [Mass/Vol] 33.0 g/dL Normal 32.0-36.0 [facility] Comment on above: Result Comment: For adults, a slight decrease in the calculated MCHC value (in the range of 30 to 32 g/dL) is most likely not clinically significant; however, it should be interpreted with caution in correlation with other red cell parameters and the patient's clinical condition. Performed By: #### 1 0231, 6399 #### [facility] [address] [place] [address] [employer] Mechanic: Sonya Junior #### 6640, 90889, 14171 #### [facility] [address], [address] [place] [address] [employer] Mechanic: Travis Khan MD MCV (RBC) [Entitic vol] 86.2 fL Normal 80.0-100.0 [facility] Comment on above: Performed By: #### 1 0231, 6399 #### [facility] [address] [place] [phone] [employer] Mechanic: Sonya Junior #### 7600, 22058, 35924 #### [facility] [address] , [address] [place] [phone] [employer] Mechanic: Travis Khan MD Monocytes (Bld) [#/Vol] 0.316 10*3/uL Normal 200-950 [facility] Comment on above: Performed By: #### 1 0231, 6399 #### [facility] [address] [place] [address] [employer] Mechanic: Snoya Junior #### 7600, 53091, 95560 #### [facility] [address], [address] [place], [place] [address] [employer]ola Mechanic: Travis Khan MD Monocytes/100 WBC (Bld) 7.9 % Normal [facility] Comment on above: Performed By: #### 1 0231, 6399 #### [place] [address] [employer] Mechanic: Sonya Junior #### 7600, 88670, 05654 #### [facility] [address] , [address] [place] [phone] [employer] Mechanic: Travis Khan MD Neutrophils (Bld) [#/Vol] 1.884 10*3/uL Normal 5663-6038 [facility] Comment on above: Performed By: #### 1 0231, 6399 #### [facility] [address] [place] [phone] [employer] Mechanic: Sonya Junior #### 7600, 53243, 89930 #### [facility] [address], [address] [place] [phone] [employer] Mechanic: Travis Khan MD Neutrophils/100 WBC (Bld) 47.1 % Normal [facility] Comment on above: Performed By: #### 1 0231, 6399 #### [facility] [address] [place] [address] [employer] Mechanic: Sonya Junior #### 7600, 11859, 02890 #### [facility] [place] [address] [employer] Mechanic: Travis Khan MD Platelet mean volume (Bld) [Entitic vol] 8.9 fL Normal 7.5-12.5 [facility] Comment on above: Performed By: #### 1 0231, 6399 #### [place] [address] [employer] Mechanic: Sonya Junior #### 7600, 83475, 05395 #### [facility] [place] [address] [employer] Mechanic: Travis Khan MD Platelets (Bld) [#/Vol] 274 10*3/uL Normal 140-400 [facility] Comment on above: Performed By: #### 1 0231, 6399 #### [place] [address] [employer] Mechanic: Sonya Junior #### 7600, 18537, 13769 #### [facility] [place] [address] [employer] Mechanic: Travis Khan MD RBC (Bld) [#/Vol] 4.78 10*6/uL Normal 3.80-5.10 [facility] Comment on above: Performed By: #### 1 0231, 6399 #### [place] [address] [employer] Mechanic: Sonya Junior #### 7600, 63595, 74844 #### [facility] [place] [address] [employer] Mechanic: Travis Khan MD WBC (Bld) [#/Vol] 4.0 10*3/uL Normal 3.8-10.8 [facility] Comment on above: Performed By: #### 1 0231, 6399 #### [facility] [address] [place] [phone] [employer] Mechanic: Sonya Junior #### 7600, 72370, 06607 #### [facility] of [address], [address] [place] [address] [employer] Mechanic: Travis Khan MD [facility] Albumin [Mass/Vol] 4.2 g/dL Normal 3.6-5.1 [facility] Comment on above: Performed By: #### 1 0231, 6399 #### [facility]-[address] [address] [employer] Mechanic: Sonya Junior #### 7600, 87862, 29831 #### [facility] [address], [address] [place], [place] [address] [employer] Mechanic: Travis Khan MD Albumin/Globulin [Mass ratio] 1.8 {ratio} Normal 1.0-2.5 [facility] Comment on above: Performed By: #### 1 0231, 6399 #### [facility] [address] [place] [address] [employer] Mechanic: Sonya Junior #### 7600, 17656, 67372 #### [facility] [address], [address] [place] [address] [employer] Mechanic: Travis Khan MD ALP [Catalytic activity/Vol] 82 U/L Normal 37-153 [facility] Comment on above: Performed By: #### 1 0231, 6399 #### [facility] [address] [place] [phone] [employer] Mechanic: Sonya Junior #### 7600, 17396, 17947 #### [facility] [address], [address] [place] [address] [employer] Mechanic: Travis Khan MD ALT [Catalytic activity/Vol] 32 U/L High 6-29 [facility] Comment on above: Performed By: #### 1 0231, 6399 #### [facility]-[address] [address] [employer] Mechanic: Sonya Junior #### 7600, 19893, 05468 #### [facility] [address], [address] [place], [place] [address] Scagliola Mechanic: Travis Khan MD AST [Catalytic activity/Vol] 21 U/L Normal 10-35 [facility] Comment on above: Performed By: #### 1 0231, 6399 #### [facility] [address] [place] [phone] [employer] Mechanic: Sonya Junior #### 7600, 00396, 56543 #### [facility] [address], [address] [place] [address] [employer] Mechanic: Travis Khan MD Bilirubin [Mass/Vol] 0.8 mg/dL Normal 0.2-1.2 [facility] Comment on above: Performed By: #### 1 230, 6399 #### [facility]-[address] [address] [employer] Mechanic: Sonya Junior #### 7600, 31271, 46964 #### [facility] [place] [phone] Scagliola Mechanic: Travis Khan MD BUN/CREATININE RATIO SEE NOTE: Normal 6-22 [facility] Comment on above: Result Comment: Not Reported: BUN and Creatinine are within reference range. Performed By: #### 1 0231, 6399 #### [facility] [address] [place] [phone] [employer] Mechanic: Sonya Junior #### 7600, 74328, 01073 #### [facility] [address], [address] [place] [phone] [employer] Mechanic: Travis Khan MD Calcium [Mass/Vol] 8.7 mg/dL Normal 8.6-10.4 [facility] Comment on above: Performed By: #### 1 0231, 6399 #### [facility] [address] [place] [address] [employer] Mechanic: Sonya Junior #### 7600, 25186, 14079 #### [facility] [address], [address] [place] [address] [employer] Mechanic: Travis Khan MD Chloride [Moles/Vol] 105 mmol/L Normal 98-110 [facility] Comment on above: Performed By: #### 1 0231, 6399 #### [facility] [address] [place] [address] [employer] Mechanic: Sonya Junior #### 7600, 76241, 90353 #### [facility] [address] Sc[employer] Mechanic: Travis Khan MD CO2 [Moles/Vol] 30 mmol/L Normal 20-32 [facility] Comment on above: Performed By: #### 1 230, 6399 #### [facility] [address] [place], [place] [address] Scagliola Mechanic: Sonya Junior #### 7600, 71387, 57794 #### [facility] [address] Sc[employer] Mechanic: Travis Khan MD Creatinine [Mass/Vol] 0.62 mg/dL Normal 0.50-1.03 [facility] Comment on above: Performed By: #### 1 0231, 6399 #### [facility] [address] [place], [place] [address] Scagliola Mechanic: Sonya Junior #### 7600, 27858, 08371 #### [facility] [address], [address] [place] [address] [employer] Mechanic: Travis Khan MD GFR/1.73 sq M.predicted among non-blacks MDRD (S/P/Bld) [Vol rate/Area] 103 mL/min/{1.73_m2} Normal > OR = 60 [facility] Comment on above: Performed By: #### 1 0231, 6399 #### [facility]-[address] [address] [employer] Mechanic: Sonya Junior #### 7600, 99462, 55411 #### [facility] [address], [address] [place] [address] [employer] Mechanic: Travis Khan MD Globulin (S) [Mass/Vol] 2.4 g/dL Normal 1.9-3.7 [facility] Comment on above: Performed By: #### 1 0231, 6399 #### [place] [address] [employer] Mechanic: Sonya Junior #### 7600, 78358, 26580 #### [facility] [address], [address] [place] [address] [employer] Mechanic: Travis Khan MD Glucose [Mass/Vol] 94 mg/dL Normal 65-99 [facility] Comment on above: Result Comment: Fasting reference interval Performed By: #### 1 0231, 6399 #### [facility]-[address] [address] [employer] Mechanic: Sonya Junior #### 7600, 28200, 74671 #### [facility] [address], [address] [place] [address] [employer] Mechanic: Travis Khan MD Potassium [Moles/Vol] 3.9 mmol/L Normal 3.5-5.3 [facility] Comment on above: Performed By: #### 1 0231, 6399 #### [facility] [address] [place] [phone] [employer] Mechanic: Sonya Junior #### 7600, 27906, 73175 #### [facility] [place] [address] [employer] Mechanic: Travis Khan MD Protein [Mass/Vol] 6.6 g/dL Normal 6.1-8.1 [facility] Comment on above: Performed By: #### 1 0231, 6399 #### [facility] [address] [place] [address] [employer] Mechanic: Sonya Junior #### 7600, 09375, 72369 #### [facility] [address], [address] [place] [phone] [employer] Mechanic: Travis Khan MD Sodium [Moles/Vol] 142 mmol/L Normal 135-146 [facility] Comment on above: Performed By: #### 1 0231, 6399 #### [facility] [address] [place] [phone] [employer] Mechanic: Sonya Junior #### 7600, 50719, 51429 #### [facility] [address], [address] [place] [phone] [employer] Mechanic: Travis Khan MD Urea nitrogen [Mass/Vol] 21 mg/dL Normal 7-25 [facility] Comment on above: Performed By: #### 1 0231, 6399 #### [facility] [place] [address] Scagliola Mechanic: Sonya Junior #### 7600, [id number], [id number] #### [facility] [address], [address] [place] [address] Scagliola Mechanic: Travis Khan MD LIPID PANEL, [facility] 09-27 Cholesterol [Mass/Vol] 221 mg/dL High <200 [facility] Comment on above: Order Comment: FASTI NG:YES FASTING: YES Performed By: #### 1 0231, 6399 #### [facility] [address] [place] [phone] Scagliola Mechanic: Sonya Junior #### 7600, [id number], [id number] #### [facility] [address], [address] [place] [phone] Scagliola Mechanic: Travis Khan MD Cholesterol in HDL [Mass/Vol] 54 mg/dL Normal > OR = 50 [facility] Comment on above: Order Comment: FASTI NG:YES FASTING: YES Performed By: #### 1 0231, 6399 #### [facility] [place] [address] Scagliola Mechanic: Sonya Junior #### 7600, [id number], [id number] #### [facility] [address] [facility], [address] [place] [phone] Scagliola Mechanic: Travis Khan MD Cholesterol in LDL [Mass/Vol] 147 mg/dL High [facility] Comment on above: Order Comment: FASTI NG:YES FASTING: YES Result Comment: Refe rence range: <100 Desirable range <100 mg/dL for primary prevention; <70 mg/dL for patients with CHD or diabetic patients with > or = 2 CHD risk factors. LDL-C is now calculated using the River calculation, which is a validated novel method providing better accuracy than the Friedewald equation in the estimation of LDL-C. Freddy SS et al. HU. 2013;310(19): 8325-3075 (http://education.[employer] [facility].[employer]faq/GWO726) Performed By: #### 1 0231, 6399 #### [facility] [address] [place] [phone] Scagliola Mechanic: Sonya Junior #### 7600, 15584, [id number] #### [facility] [address] [facility], [address] [place] [phone] Scagliola Mechanic: Travis Khan MD Cholesterol.total /Cholesterol in HDL [Mass ratio] 4.1 {ratio} Normal <5.0 [facility] Comment on above: Order Comment: FASTI NG:YES FASTING: YES Performed By: #### 1 0231, 6399 #### [facility] [place] [address] Scagliola Mechanic: Sonya Junior #### 7600, [phone], [phone] #### [facility] [address] [facility], [address] [place] [address] Scagliola Mechanic: Travis Khan MD NON HDL CHOLESTEROL 167 mg/dL (calc) High <130 [facility] Comment on above: Order Comment: FASTI NG:YES FASTING: YES Result Comment: For patients with diabetes plus 1 major ASCVD risk factor, treating to a non-HDL-C goal of <100 mg/dL (LDL-C of <70 mg/dL) is considered a therapeutic option. Performed By: #### 1 0231, 6399 #### [facility] [address] [place], [place] [id number] Scagliola Mechanic: Sonya Junior #### 7600, [id number], [id number] #### [facility] [address], [address] [place] [address] Scagliola Mechanic: Travis Khan MD Triglyceride [Mass/Vol] 96 mg/dL Normal <150 [facility] Comment on above: Order Comment: FASTI NG:YES FASTING: YES Performed By: #### 1 0231, 6399 #### [facility] [address] Scagliola Mechanic: Sonya Junior #### 7600, 35203, 555[address] #### [facility] [address], [address] [place] [address] Scagliola Mechanic: Travis Khan MD TSH W/REFLEX TO FT4on 2024 TSH W/REFLEX TO FT4 1.15 mIU/L Normal 0.40-4.50 [facility] Comment on above: Performed By: #### 1 023, 6399 #### [facility] [address] [place] [address] Scagliola Mechanic: Sonya Junior #### 7600, 64425, 87392 #### [facility] [address], [address] [place], [place] [id number] Scagliola Mechanic: Travis Khan MD VITAMIN B12on 10-15-2024 Cobalamin (Vitamin B12) [Mass/Vol] pg/mL High 200-1100 [facility] Comment on above: Performed By: #### 1 023, 6399 #### [facility] Scagliola Mechanic: Sonya Junior #### 7600, 68308, 87300 #### [facility] [address] [facility], [address] [place] [phone] Scagliola Mechanic: Travis Khan MD VITAMIN D,25-OH,TOTAL,IAon 0 10-15-2024 VITAMIN D,25-OH,TOTAL,IA 57 ng/mL Normal 30-100 [facility] Comment on above: Result Comment: Arianna min D Status 25-OH Vitamin D: Deficiency: <20 ng/mL Insufficiency: 20 - 29 ng/mL Optimal: > or = 30 ng/mL For 25-OH Vitamin D testing on patients on D2-supplementation and patients for whom quantitation of D2 and D3 fractions is required, the QuestAssureD(TM) 25-OH VIT D, (D2,D3), LC/MS/MS is recommended: order code 74868 (patients >2yrs). See Note 1 Note 1 For additional information, please refer to http://education.[employer]/faq/YMI497 (This link is being provided for informational/ educational purposes only.) Performed By: #### 1 0231, 6399 #### [facility] [address] [place] [phone] Scagliola Mechanic: Sonya Junior #### 7600, [id number], 77524 #### [facility] [address], [address] [place] [phone] Scagliola Mechanic: Travis Khan MD IGP,APTIMA HPV,AGE GDLNon AGE GDLN ACOG TESTING Note . [facility] Comment on above: TESTS RESULT FLAG UN ITS REF RANGE LAB Clinician Provided Cytology Information Source.............Vagina No. of containers..01 ThinPrep Vial Age Algo ACOG Juan... FLAG LEGEND: L-Low Normal,H-High Normal,LL-Alert Low,HH-Alert High <-Panic Low,>-Panic High,A-Abnormal,AA-Critical Abnormal Performed at: 01 [address] [address] Deanne Blanco MD, HPV APTIMA Negative Negative [facility] Comment on above: This nucleic acid am plification test detects fourteen high- risk HPV types (16,18,31,33,35,39,45,51,52,56,58,59,66,68) without differentiation. Performed at: =[address] [id number] Stock Digger: Deanne Blanco MD, Phone: [phone] Performed at: [address] [id number] Stock Digger: Deanne Blanco MD, Phone: [phone] IGP, APTIMA HPV, RFX 16/18,45 Note . [facility] Comment on above: TESTS RESULT FLAG UN ITS REF RANGE LAB DIAGNOSIS: 02 NEGATIVE FOR INTRAEPITHELIAL LESION OR MALIGNANCY. THIS SPECIMEN WAS RESCREENED PART OF OUR VP TREASURER PROGRAM. Specimen adequacy: 02 Satisfactory for evaluation. Performed by: Genoveva New, [employer] ([facility]) QC reviewed by: Tabitha Pressley [employer] ([facility]) . 02 Note: Note 02 The Pap smear is a screening test designed to aid in the detection of premalignant and malignant conditions of the uterine cervix. It is not a diagnostic procedure and should not be used as the sole means of detecting cervical cancer. Both false-positive and false-negative reports do occur. Test Methodology: Note 02 This liquid based ThinPrep(R) pap test was screened with the use of an image guided system. HPV Genotype Reflex Note 02 Criteria not met, HPV Genotype not performed. FLAG LEGEND: L-Low Normal,H-High Normal,LL-Alert Low,HH-Alert High <-Panic Low,>-Panic High,A-Abnormal,AA-Critical Abnormal Performed at: [address] [address] Deanne Blanco MD, [facility] Cytology Cervical or vaginal smear or scraping studyon 11-24-2022 [facility] XR DEXA BONE DENSITYon 11-08 XR DEXA [...] by: POOL SORIA Date: 2021-11-08 17:21 Normal [facility] PAP ACOG PANEL 2: 30 to 65on 10-31-2021 . . Normal [facility] Comment on above: Result Comment: Perf ormed at: WB Performed By: #### 4 [id number] #### [facility] [address] [address] [address] Alejandro Daniels Age Gdln ACOG Testing 30-65 Normal [facility] Comment on above: Performed By: #### 4 [id number] #### [facility] [address] [address] [address] Alejandro Daniels DIAGNOSIS: Comment Normal [facility] Comment on above: Result Comment: NEGA TIVE FOR INTRAEPITHELIAL LESION OR MALIGNANCY. Performed at: WB Performed By: #### 4 [id number] #### [facility] [address] [address] [address] Alejandro Daniels HPV Aptima Negative Normal Negative [facility] Comment on above: Result Comment: This nucleic acid amplification test detects fourteen high-risk HPV types (16,18,31,33,35,39,45,51,52,56,58,59,66,68) without differentiation. Performed at: =G Performed By: #### 4 [id number] #### [facility] [address] [place] [address] Dr. Alejandro Daniels Methodology: Comment Normal [facility] Comment on above: Result Comment: This liquid based ThinPrep(R) pap test was screened with the use of an image guided system. Performed at: WB Performed By: #### 4 [id number] #### [facility] [address] [place] [address] Dr. Alejandro Daniels Note: Comment Normal [facility] Comment on above: Result Comment: The Pap smear is a screening test designed to aid in the detection of premalignant and malignant conditions of the uterine cervix. It is not a diagnostic procedure and should not be used as the sole means of detecting cervical cancer. Both false-positive and false-negative reports do occur. . Performed at: WB Performed By: #### 4 [id number] #### [facility] [address] [place] [address] Dr. Alejandro Daniels Performed by: Comment Normal [facility] Comment on above: Result Comment: Aurora Quinones [employer] (ASCP) Performed at: WB Performed By: #### 4 [id number] #### [facility] [address] [address] [address] Alejandro Daniels Specimen adequacy: Comment Normal [facility] Comment on above: Result Comment: Sati sfactory for evaluation. Endocervical and/or squamous metaplastic cells (endocervical component) are present. Performed at: WB Performed By: #### 4 [id number] #### [facility] [address] [address] [address] Alejandro Daniels ASYMPTOMATIC COVID-19 ANTIGE Non 10-28-2021 EUA Statement SEE BELOW Normal [facility] Comment on above: Result Comment: This test [...] sooner. Performed By: #### C VDAGA #### [facility] [address] [place] [address] Dr. Alejandro Daniels SARS-CoV-2 (COVID-19) RNA HILARY+probe Ql (Unsp spec) Negative Normal NEGATIVE [facility] Comment on above: Result Comment: Nega tive results are presumptive. They do not preclude infection and should not be used as the sole basis for treatment decisions. Additional confirmatory testing by a molecular method should be considered. Performed By: #### C VDAGA #### [facility] [address] [place] [address] Dr. Alejandro Daniels [facility] 09-28 SARS-CoV-2 (COVID-19) RNA HILARY+probe Ql (Unsp spec) Detected Critically abnormal NOT DETECTED [facility] Comment on above: Result Comment: This test is not yet approved or cleared by the [place] FDA. When there are no FDA-approved or cleared tests available, and other criteria are met, FDA can make tests available under an emergency access mechanism called an Emergency Use Authorization (EUA). The EUA for this test is supported by the Insole And Outsole Splitter of Health and Human Service's declaration that [...] used). Performed By: #### C VDTB #### [facility] [address] [place] [address] Dr. Alejandro Daniels MG MAMM SCREEN 3D HAYDEN CADon 10-11-2021 MG MAMM SCREEN 3D HAYDEN CAD Patient: DANIELLE REYES Exam Date: 10/11/2021 : 1965 Gender:F Ordering : DR EDVIKA ESPARZA PA Admission #: [id number] Family : DR MONIQUE POTTER . Order #: [id number] CLICK HERE TO VIEW EXAM RADIOLOGY REPORT [...] Treatments None Family Cancers None LOCATION: [facility] BREAST COMPOSITION: Almost entirely fatty. FINDINGS: DIAGNOSTIC [...] M.D. on 10/14/2021 at 11:30 Normal [facility] CBC AUTO DIFFon 10-04-2021 BASO # 0.0 103/ul Normal 0.0-0.1 [facility] Comment on above: Performed By: #### C BC #### [facility] [address] [address] [address] Alejandro Daniels Basophils/100 WBC (Bld) 0.9 % Normal 0.2-2.0 [facility] Comment on above: Performed By: #### C BC #### [facility] [address] [address] [address] Alejandro Daniels EO # 0.3 103/ul Normal 0.0-0.7 [facility] Comment on above: Performed By: #### C BC #### [facility] [address] [address] [address] Alejandro Daniels Eosinophils/100 WBC (Bld) 7.3 % Critically high 0.9-7.0 [facility] Comment on above: Performed By: #### C BC #### [facility] [address] [address] [address] Alejandro Daniels Erythrocyte distribution width (RBC) [Ratio] 11.8 % Normal 11.0-15.0 [facility] Comment on above: Performed By: #### C BC #### [facility] [address] [address] [address] Alejandro Daniels Hematocrit (Bld) [Volume fraction] 40.8 % Normal 36.0-48.0 [facility] Comment on above: Performed By: #### C BC #### [facility] [address] [address] [address] Alejandro Daniels Hemoglobin (Bld) [Mass/Vol] 13.6 g/dL Normal 12.0-16.0 [facility] Comment on above: Performed By: #### C BC #### [facility] [address] [address] [address] Alejandro Daniels IG # 0.01 10e3/ul Normal 0.00-0.03 [facility] Comment on above: Performed By: #### C BC #### [facility] [address] [place] [address] Dr. Alejandro Daniels IG % 0.2 % Normal 0.0-0.5 [facility] Comment on above: Performed By: #### C BC #### [facility] [address] [place] [address] Dr. Alejandro Daniels LYMPH # 1.6 103/ul Normal 1.2-3.8 [facility] Comment on above: Performed By: #### C BC #### [facility] [address] [place] [address] Dr. Alejandro Daniels Lymphocytes/100 WBC (Bld) 35.8 % Normal 20.5-60.0 [facility] Comment on above: Performed By: #### C BC #### [facility] [address] [place] [address] Dr. Alejandro Daniels MANUAL DIFF REQ NO Normal [facility] Comment on above: Performed By: #### C BC #### [facility] [address] [place] [address] Dr. Alejandro Daniels MCH (RBC) [Entitic mass] 28.9 pg Normal 26.7-34.0 [facility] Comment on above: Performed By: #### C BC #### [facility] [address] [place] [address] Dr. Alejandro Daniels MCHC (RBC) [Mass/Vol] 33.3 g/dL Normal 29.9-35.2 [facility] Comment on above: Performed By: #### C BC #### [facility] [address] [place] [address] Dr. Alejandro Daniels MCV (RBC) [Entitic vol] 86.6 fL Normal 81.0-99.0 [facility] Comment on above: Performed By: #### C BC #### [facility] [address] [place] [address] Dr. Alejandro Daniels MONO # 0.4 103/ul Normal 0.3-0.8 [facility] Comment on above: Performed By: #### C BC #### [facility] [address] [address] [address] Alejandro Daniels Monocytes/100 WBC (Bld) 8.2 % Normal 1.7-12.0 [facility] Comment on above: Performed By: #### C BC #### [facility] [address] [address] [address] Alejandro Daniels NEUT # 2.1 103/ul Normal 1.4-6.5 [facility] Comment on above: Performed By: #### C BC #### [facility] [address] [address] [address] Alejandro Daniels Neutrophils/100 WBC (Bld) 47.6 % Normal 43.0-75.0 [facility] Comment on above: Performed By: #### C BC #### [facility] [address] [place] [address] Dr. Alejandro Daniels Platelet mean volume (Bld) [Entitic vol] 9.1 fL Critically low 9.5-13.5 [facility] Comment on above: Performed By: #### C BC #### [facility] [address] [place] [address] Dr. Alejandro Daniels PLT 241 103/ul Normal 150-450 [facility] Comment on above: Performed By: #### C BC #### [facility] [address] [place] [address] Dr. Alejandro Daniels RBC 4.71 106/ul Normal 4.20-5.40 [facility] Comment on above: Performed By: #### C BC #### [facility] [address] [place] [address] Dr. Alejandro Daniels WBC 4.4 103/ul Normal 4.0-11.0 [facility] Comment on above: Performed By: #### C BC #### [facility] [address] [place] [address] Dr. Alejandro Daniels LIPID PROFILEon 10-04-2021 CHOL-HDL RATIO NORM SEE BELOW Normal [facility] Comment on above: Result Comment: 3.3 - 4.4 LOW RISK 4.4 - 7.1 AVERAGE RISK 7.1 - 11.0 MODERATE RISK >11.0 HIGH RISK Performed By: #### C MP, LIPID #### [facility] [address] [address] [address] Alejandro Daniels Cholesterol [Mass/Vol] 210 mg/dL Critically high <=200 [facility] Comment on above: Performed By: #### C MP, LIPID #### [facility] [address] [address] [address] Alejandro Daniels Cholesterol in HDL [Mass/Vol] 61 mg/dL Critically high 40-60 [facility] Comment on above: Performed By: #### C MP, LIPID #### [facility] [address] [address] [address] Alejandro Daniels Cholesterol in LDL [Mass/Vol] 140.8 mg/dL Normal [facility] Comment on above: Performed By: #### C MP, LIPID #### [facility] [address] [place] [address] Dr. Alejandro Daniels Cholesterol.total /Cholesterol in HDL [Mass ratio] 3.4 {ratio} Normal [facility] Comment on above: Performed By: #### C MP, LIPID #### [facility] [address] [address] [address] Alejandro Daniels HDL NORMAL > or = 60 mg/dl - LO W CARDIOVASCULAR RISK <40 mg/dl - HIGH CARDIOVASCULAR RISK Normal [facility] Comment on above: Performed By: #### C MP, LIPID #### [facility] [address] [place] [address] Dr. Alejandro Daniels LDL CALC NORMAL SEE BELOW Normal [facility] Comment on above: Result Comment: <100 mg/dl OPTIMAL 100 - 129 mg/dl NEAR OR ABOVE OPTIMAL 130 - 159 mg/dl BORDERLINE HIGH 160 - 189 mg/dl HIGH >190 mg/dl VERY HIGH Performed By: #### C MP, LIPID #### [facility] [address] [place] [address] Dr. Alejandro Daniels Triglyceride [Mass/Vol] 41 mg/dL Normal <=150 [facility] Comment on above: Performed By: #### C MP, LIPID #### [facility] [address] [place] [address] Dr. Alejandro Daniels VLDL CALC 8.2 mg/dL Normal [facility] Comment on above: Performed By: #### C MP, LIPID #### [facility] [address] [place] [address] Dr. Alejandro Daniels PROF 14(COMP METB)on 022 Albumin [Mass/Vol] 3.7 g/dL Normal 3.4-5.0 [facility] Comment on above: Performed By: #### C MP, LIPID #### [facility] [address] [place] [address] Dr. Alejandro Daniels Albumin/Globulin [Mass ratio] 1.1 {ratio} Normal [facility] Comment on above: Performed By: #### C MP, LIPID #### [facility] [address] [place] [address] Dr. Alejandro Daniels ALP [Catalytic activity/Vol] 82 U/L Normal 46-116 [facility] Comment on above: Performed By: #### C MP, LIPID #### [facility] [address] [place] [address] Dr. Alejandro Daniels ALT [Catalytic activity/Vol] 42 U/L Normal 14-59 [facility] Comment on above: Performed By: #### C MP, LIPID #### [facility] [address] [place] [address] Dr. Alejandro Daniels Anion gap [Moles/Vol] 9.9 mmol/L Normal [facility] Comment on above: Performed By: #### C MP, LIPID #### [facility] [address] [place] [address] Dr. Alejandro Daniels AST [Catalytic activity/Vol] 16 U/L Normal 15-37 [facility] Comment on above: Performed By: #### C MP, LIPID #### [facility] [address] [place] [address] Dr. Alejandro Daniels Bilirubin [Mass/Vol] 0.8 mg/dL Normal 0.2-1.0 [facility] Comment on above: Performed By: #### C MP, LIPID #### [facility] [address] [address] [address] Alejandro Daniels Calcium [Mass/Vol] 8.8 mg/dL Normal 8.5-10.1 [facility] Comment on above: Performed By: #### C MP, LIPID #### [facility] [address] [place] [address] Dr. Alejandro Daniels Chloride [Moles/Vol] 107 mmol/L Normal 98-107 [facility] Comment on above: Performed By: #### C MP, LIPID #### [facility] [address] [place] [address] Dr. Alejandro Daniels CO2 [Moles/Vol] 29.6 mmol/L Normal 21.0-32.0 [facility] Comment on above: Performed By: #### C MP, LIPID #### [facility] [address] [place] [address] Dr. Alejandro Daniels Creatinine [Mass/Vol] 0.69 mg/dL Normal 0.55-1.02 [facility] Comment on above: Performed By: #### C MP, LIPID #### [facility] [address] [place] [address] Dr. Alejandro Daniels EGFR-AF NEPALESE >60 Normal >=60 [facility] Comment on above: Performed By: #### C MP, LIPID #### [facility] [address] [place] [address] Dr. Alejandro Daniels EGFR-NON AF NEPALESE >60 Normal >=60 [facility] Comment on above: Performed By: #### C MP, LIPID #### [facility] [address] [place] [address] Dr. Alejandro Daniels Globulin (S) [Mass/Vol] 3.5 g/dL Normal [facility] Comment on above: Performed By: #### C MP, LIPID #### [facility] [address] [place] [address] Dr. Alejandro Daniels Glucose [Mass/Vol] 100 mg/dL Normal 74-106 [facility] Comment on above: Performed By: #### C MP, LIPID #### [facility] [address] [place] [address] Dr. Alejandro Daniels Potassium [Moles/Vol] 3.5 mmol/L Normal 3.5-5.1 [facility] Comment on above: Performed By: #### C MP, LIPID #### [facility] [address] [place] [address] Dr. Alejandro Daniels Protein [Mass/Vol] 7.2 g/dL Normal 6.4-8.2 [facility] Comment on above: Performed By: #### C MP, LIPID #### [facility] [address] [place] [address] Dr. Alejandro Daniels Sodium [Moles/Vol] 143 mmol/L Normal 136-145 [facility] Comment on above: Performed By: #### C MP, LIPID #### [facility] [address] [place] [address] Dr. Alejandro Daniels Urea nitrogen [Mass/Vol] 21.0 mg/dL Critically high 7.0-18.0 [facility] Comment on above: Performed By: #### C MP, LIPID #### [facility] [address] [place] [address] Dr. Alejandro Daniels Urea nitrogen/Creatini ne [Mass ratio] 30.4 mg/mg Normal [facility] Comment on above: Performed By: #### C MP, LIPID #### [facility] [address] [place] [address] Dr. Alejandro Daniels [facility]-19 PCR ([facility]on SARS-CoV-2 (COVID-19) RNA HILARY+probe Ql (Unsp spec) Not detected Normal NOT DETECTED [facility] Comment on above: Result Comment: When diagnostic [...] for this test is supported by the [employer] and Human Service's declaration that [...] longer be used). Performed By: #### C TB #### [facility] [address] [place] [address] Dr. Alejandro Daniels Coding Summary.on 10-24-2020 Coding Summary. CD:[id number] Gh0 bWw+PGhlYWQ+ER7GSKHwG50 zpZGolR3BG4mMNY3QSTOHJX XNBB7XKQ8khBN3CCynN8Yxh iAv XngicWHcEV15GBa6LAL5mEv nNRfjrV1maQQoX5y7EfXmTQ 42aN31FMdrLKFrPrG8GsGhj jsgbWFy T6ucEoGygXQrStu+PHRhYmx lIHdpZHRoPScxMDAlJyBzdH icWH6cNw0jEKNuUDBqjUuhx HNlOiBj s4koCDYmDVezOV0byVoxI5W eaMK0VXQuk9t2Xf14wAC+PH WsTOU1bPllHHdeo745KpDct 5ulPPT5 jQNuQQueRHH8P67dy8P3OWV wLTOjNGO6mMN3dP6emZyufz xfW7AlaRZoMvN4IWC3pKIeo D3yiRrc mslliH0pTwp+C52QTH5YMBR TLQ0EElz5X9TxKdzoeIV+PC 07UTNgZW73xAPnaOYyu1mqn Fr5TdTz EZKaHNO7kPdsJSrdo9DbTIK zM68vfZVbl1R1YGWlwKrqjB OfZaWcmBS3kG6wEFarrpkzg 2hvdzsn Khlnf3dvcf70qN11U93cPBg iHWVjKFX4EARrEISfxOzcxm 2bsJ3fNn0+VYhby7uhl7imu Uq7JkMn CYTrrnHmaCevIOT9l3UkEl1 8Q2BftXdax4NyCyr8gq32hK Uru7L8aXF4CFhyEEFhgU4uN WxlZnQ6 AJQfEbNoqH42wKCbGUdlOj3 mkVczdVzvCZ9xCHVqtcdyOU PboQ2sXOQtqLFyvPsaUS9oA TBpbjtm t190FvKpVPM0AVPzlZMnB9H crD0zJfQpGNCsVCXtO7EvpF AzZEouU852PNnnRqI2UYJau rUwP9Zm GIEkkFpiKaJ7p3R1Zm4Hn9D jamwsYQA5ERdbMKE6DpX8Vc DoArC3T4OiGca6EZXojVvwN V2wI2Yo COLleoczrxbjpIQ8RGVxIYQ hfN34vHIxFLbaJy4ot9D8k0 11TYMrCNRvqA92Eo5gdCfxR TBwdCBU fL9ezfjsg7qdzhjgCpPgINV gIMk9EAo6AQOabYplBmDhYJ J7NuI1NOQ4sFPbcS7ofIven ogwpZ9x Oyc+Z76cdQ6qJVI3TJY6krq kVBQiwhEmBV72XW15F3EhHi wvdGFibGU+PGRpdiBzdHlsZ I3rFlCv a0ixa4YhUVeaJ7FjJSLbGXs xBah1OYQzFNN7qTT0yI8oJT HwNXllm8Y6uRU4R6AyjcCbu z3ze7nu ZTXtELjhH92oiVVhj0Y4PCU clEJ3XLBvfKiaDoPglW33Sh c+ZPXcqLahq4FuQzttw3xbu 3tsdIj8 RdOrALFyuiAclSaySRM5v0K pOx79W65iEVjtCGHxBZLhXY QgLOAqwLoemy0qfX1uNj7+P GNvbCB3 uTZ6uZ5pMPErMcJ4QZmrV61 4VsCbvXRhOjktv8vhc8wszJ t0TqOnOXTkubHunFuvZWY5q 0ZsAv55 L73bPMlwQVNmLUWsZXTlMHC qiVppek3liR1iSs0+PC9jb2 wtyz89jX47iJA+KGOeHDN7r WxlPSdw BDDcoU6lTZyjIlB3QNXoTzX cuK85bAAwBIerCq0olLylyX mfZG3mHNXysmaaw345KgOrs 2xkIDEw uYHhTRkgKKN9R17bt8P5YNH wTDZqNYK4vTO6mO4vkPuhce ogbGVmdDsgdmVydGljYWwtY XcpJ595 IHRvcDsnPlBhdGllbnQgTmF qTJf1T1YjEbd9YZFqwUmdEF 7ypPNkUCtgYb3rhZxhwUwvJ V4qYPOj laivo941XaZwg7bdTOVebEC qWChwKYO4O29ey3S2DVPvDI BrXZP3fLY3eS7csJesznqra GVmdDsg jlGtbNgkQZfoWKkjA987BFG qlErkLwXnudKyPEYexSA3OU 45XS80qGFmb0A9iQQ2K3UkK GRpbmct wnropUM0RCPmULYxvA33Un9 aePdnCf4fQJMsCVY4YWPsxL MnM1NiuL3hRsDfYQVjFXPcN 3RleHQt CLllI538TFzaEdP7CNJtcjF pX1PaRIKefNovAnN9i0D6Bh 0FC5P9BP08UL55vQPlh0F2h YH5G1Dl AKMnbqesmeuvfKO1XYEuHTZ fdS09Cy4vrGaoGz3vHKIqFU G2DZJjbJNsV6JrmZ2hWgYgM DAwMDAw L6BxiSGzETefG028ZMpxHuB 6KUIkcmUmF1IvVZXfmGtjLm Y0b3Q5Ni4EORz3NT76GV48d NBcf4O0 xKF9A9QsCMLiraoozurahIY 1TATlJQRqaO11Up3ckNnrCc 5jUPAwQYH6WKBdqIEyC9Zbd V2gIwLi NSAnKSUkT9FytBCiTPmkG04 7CDwgZiN6RHWdsfQrL8PwHM AibTkeWvH9m1G8Tt8WJYDgB X15CEC3 jHO7NC93MS51A4QfUppsyQT ibGU+PHRhYmxlIHdpZHRoPS cpJXEqZrSrgDotBB6cBd9mW GVyLWNv xIncgRPsSqIed1srBHHbZQj gTK4cbIfqE7WyvGF9PCCjk5 x5Ws72Z82gQ1JyuFZ+PGNvb NK5cYN5 yC5vRuUlOzB8KFxoB065QqE jdILbVcfiu2tfh4wnhAv3Ed J7OKLxdgBdmFgmWLC9e9YtS f44G26f IHdpZHRoPSIxNSUiIHZhbGl pef7ecM0mOi3+AIOvoJS4mP B9gW1yEdIpJmJ0MSrxV243Q nRvcCIv Fgefg9fvs0dggVf8FfUoZNY bzoBiuRrwJKM5c9XuNu88S9 WqgEdxw8UcUxf1ux59kTJvo 3W5eJG2 M6ZtIJFbwzfikSIkmOroVF0 wMYZmixahWLEvjR9yXMKcY9 i4FzWvVlP0BQtcB3HywgS8Y DEwcHQg RBmfZWK0Y09ai5W3VJUrJNR yAOJ2oFE6vN2nqAdgyircqI VmdDsgdmVydGljYWwtYWxpZ 246IHRv uJslOTIdeO9qHRThvBKouQo hSF6eTZPskzvtBavKXXzEQb XGTuwtUEdCZvRVJJLXGMp4T 1FvRug3 UAGyeJyvOZ7ljMRmVMfeVt4 jpIvtmWbkLY5lJXRxjynvSG DrhB8lXFUhgLNmzSfkAU2hJ TBpbjtm p667QrXeCWL2AALafJNhR6H axU2pPuLrCUZnMPJoN4FghT ImFOxvG784WHtvHrD3GZWvm tWwZ7Bj KKXyzMnbPcG2a7B5Xk2iAz2 gNL2sBQF9CA55QI47tKCho3 E4wBS8A3GjVCLmlfdvdxntf SK8XGNz HYIrbJ22rNLaLLpqBs3yr5D 7a577CQVxGIPpoR36Il0bjD hrZZQdfEJDkM8cjzvyk8vxq jogIzAw TEUvWWe1WJb4WSNgvAetBjY sFNE6FfJ7JHS9mDSyzK4cfE srioxcsC1wKfp+NTQgWWVhc tG9R9Kz Mbg4AJKcuArnDQ9waILdWHy tUz8hlHxaxVtuEQ2nWHOdro zqYTNnqZ9fYAUgbOIbaEckW D0jZMRr ftcta370NwVrJSY9ORTslYL iL6DdwK4oQoUePPUcHLCgQ1 WuhFFnVGurR245UYmeHaX1R HZlcnRp I3FpPAErmDgnXuP8u0Q8Xp9 NFV9qmFO7T7CwYjj6JAQfaW zrWS8oyYFnVNlxVw1piJzma MdkDW9o FSTzumezKDVflW1yATZpiIL bgRmsGN3xNYTzjykbi822Av TgXUY5GDEmgEWkI3JfcY0oT iAjMDAw DNWeL7HjlZZtLNtyA722NMw vNrA6PEShvvHmN5EcRPMmdC ykJxC0x4J9Sm5TuDKiSUMdQ C86GY71 PJ35L4HlSglsfCIyzCG+PHR hYmxlIHdpZHRoPScxMDAlJy HxwLbvHD2zAb2xGTXvLRPdd GxhcHNl WaXsj9wpEFMvAZveAD2pjBs uK9WaqHZ1SZVld3p6Le43B9 9oX4IxoQL+FBRknCM6hJH9o C9sWuHk GiG4QFgjR930XvGxmLFpMpa aj7xns3lxhJc0IrEsNYDgfs GcwHioFLB5u0IxRb45S14mB HdpZHRo IAShUIIcZDIefZwujz3qwZ9 wIi8+EYPwjGW9xQE8rG7hVt NtFxC3QUjjL447UkAyuPNbP hvvN49o U5CrcJJ+OQWsSkl0QUCsbUt sUT3fcYGhPPpzRx5xUWZ1Iu ZcEsKvBOizN4UjYMSvsegzr mlnaHQ6 KDMxYZUugV42Jk6snMfcCy8 mNVAgPYQ0TMMunPFqF5ZbbN 7zLfYoVPCgRTLwB9GrkYPxT ViqN447 ZGanPvP7GWGfnnQyO1JvVSJ dvBbdFwE4e6N9Fu9MbLfvsW OnLJ1pMgHaMSi7A7ElRck4T CBzdHls EZ3qlKXqXTwjGd4beAytbCk pHY5zKLObhseac892WfJlb4 cxAGXlpVKpGEqtVXZ6H78si 1N3UGSi AOVjDGC1gMA9lW6dsEsoapa gbGVmdDsgdmVydGljYWwtYW hoC282KYZzsNndXaVZYai4H 9RfXan7 XUSyuZuyLD6qoPHaGHunRz7 qzAmmcMlyJJ0oJBNwkuwoh8 79YdGix8pqYQEfiDJaXVqjR PR9D62e w3T9UDCcNYIxOFB0jSU3kA6 hbGlnbjogbGVmdDsgdmVydG inIFkjVUhbX179SJMimKrzL p9LNdv1 X9QkRrz3SVRlmXuxGM4mxWH wIMcoEm9yzZwtnPqiQU1kUJ Wodtrbp840NzAyh1ziFQGus HQgVGlt DRN4S16bp5Q7OWKbJGCcXDT 4sCL7zE0kvHemdekcgUGhbU ccszFiiYzlSYbuPFogY340A HRvcDsn PlBheWVyOjwvdGQ+KT75is8 9A9VmLykvMft6SDWpPFX4aH B9iF5zPCTuUHfxr1M6dXK3W 2JvcmRl ci1j (more content not included)... Normal [facility] MA Mamm Screen w/CAD if perf [...] VERY IMPORTANT TO YOUR HEALTH. THE CURRENT [employer] COLLEGE OF RADIOLOGY AND NATIONAL COMPREHENSIVE CANCER [...] Signed by: Satya Key MD Transcribed by: DP Technologist: [facility] Assessment: BI-RADS Category 1-Negative Recommendation: Normal interval follow-up Normal [facility] Consent for Treatment09-28 Consent for Treatment [id number] D:127 Normal [facility] Coding Summary.on 10-02-2020 Coding Summary. CD:[id number] Gh0 bWw+PGhlYWQ+RM2ZMKJvM43 axWQqjZ6BU1vKGJ2JYRDHAQ OAHO5NHF3rgRU2DKelQ0Qll iAv JxpgmHYmZK10LNm7ACW8eEt wQIljzK6svVMkT4t5EmEbKR 04fK18XMzhQSHdBuZ6XnUgk jsgbWFy J5hrDpMqtONhJng+PHRhYmx lIHdpZHRoPScxMDAlJyBzdH xkAK8fMn3tLRCqDLGqaWcli HNlOiBj z3ioKHCyFRgjLT6vhHiqM3T boSJ5AZFuo7o0Ud80vRV+PH KrDPC1iOfmZWmbm104LcNgb 8jxUJZ9 fSDiVHmiYVE0H09ik1Q2XXI aYSAuANM3kQZ1qZ3ixWmktk lrM4UruRVwXpU5GVF9fNUqf P0jwWsf tskjiL6lEju+W71TEE8YNVV GXX5NDlk7P7AlLbxjrMT+PC 70FJQmGZ65nLPagXOom9yec Ti5FbRs TNCiBEN1aBgeQGdbb3FfJNS aF10yzYXwe9T5BHFezUucdL LgRfNeoDF8jE2iRXudgltuj 2hvdzsn Adlra9bbtb55xU15X44bZMp eVIShYIC7XQDdIDVawBvfea 7zlA3oSo1+WIort0ikb7sju Xc4UuMj MIMhukQmlLrjEHM7t1SpFg6 6U2QtfHhye0AhPub4lc22wC Xsd6J7nOS9NNqoFERglA3jF WxlZnQ6 VQCkHnFasL81iWQoLTlgMt5 gvFkyeYjuWO7fAXLkrgxaZJ PyhQ6qDIRkpDPefAvdXE5qS TBpbjtm j189HhJhLZE1USYigGCdW4P gwH8aKiZqNTGbEYGdN9CniI TmAGylS969YNgpHuX3FNMbp kIrK9Do PKOjvDpvZxK0d8P3Zw2Nw3H yrdesTYC9QLxuCZD9QtX4Ub JiStX1X4AcJgc4RRRhxIncK R4hL2Si BNYibsvewgcsbOO5XQXaCCN btO13qMHjDPccXq8xz2E8e8 02SSDqRXKgmC33Hf9iqEdwK TBwdCBU pS3bjrmuo0idqxqbBfHePNM pIVk1ZWj8VPAhyIkqRnTcYV Y5PaX4TWO4gNHtmE2hdHyfl yerrU1x Oyc+K24iuJ0dDRV5GCC5ify dSQScawDbYC67UY64H3KqVu wvdGFibGU+PGRpdiBzdHlsZ N5bBrTk g6sgv9BiYXooE9ChLJNjMAz oDuq7PYMjDXE4sKN3sY9fET ErRZsqm1A9jWC3M2OylpAzn x9ts1xu GXZtTSudB44klMRpk6U4WUV plXG1UOXmxJlmSfXenA30Yx c+CNKuzJzaa0KuWkasz8lkq 4xyzWm4 PeVpKOHfxzFzbUheZXA1d5U mUx65T14dBLqbOFGvEIClMR NbFFClgXliaj7lmT6jJs4+P GNvbCB3 vDD7wO0nZLAaKtE5ABmyA76 9NlHkwIMzGffro1iru0yggN c7PlPhNDYybsWpaTnyFMB9k 9GvXd28 L53mLEnyKLAvWPRqZQGlTCD wsTvtdy7gaP6zJb9+PC9jb2 gtng17zM06lLW+KNAkYKZ3x WxlPSdw RBQfdK7pLMkjMnQ9GXYaXqG jzL91zCDbRLckJl6alCjxmS eoAR9zZOFbifwxr311DkAbr 2xkIDEw pZBiNUddJMV4M63ex9N8BEW wMCIlLAN5oJH2cL2fzUnkgg ogbGVmdDsgdmVydGljYWwtY OcyC054 IHRvcDsnPlBhdGllbnQgTmF nOPw0A4NpRdh3QQLpeWmxSC 9siAAcUSzwMs3gfJgptFzjL P9fSVAw ihakp080SsSvo1veICCxsOW uZQjyQEQ7K71oc7C6QMXkLM CyVVX3qPM0zN2qmYupeqtdl GVmdDsg nmBmqAibTDyqYBjwB427HPL tjTrtOdVovfUfGEHngJP2RF 54JQ27qGLfe6J4kGY7V4JvZ GRpbmct dprjoZL7XTLjYLGipA38Am2 kpZkaKd9sUATvKEU7IBTurM FtA9QnmE6sWtOuNTCpRLWgW 3RleHQt PKmhO899RHqzOzN2VTFsecB jO2YpGDUrfPjcTwO0e7Z8Hn 0BH9S7UK94DO60eHDlh9H2a YR5O7Mj QJJkbxyhvqsacQG9AOBdNRR jhA52Ax6niExiTu6mCERiTJ N4SRIawTWqX7QqzD5zVkDdW DAwMDAw H7OhwURcJWqeW933DIlbBbZ 5JQEeyfZiW9TfBPRbfEeaCq V4l6R4Or6AWKw2LD82BB87o BNcc8P0 bZZ7Q4PxVYWyxbdwhboclYR 5GKGtMBJniM48Pk2eaRpeBp 3rYIIjMGV2BJScwXPtL8Fbj H4dMiHr CDDtEFNiS5QwmOSuXWloU25 2TLzlUfI9KSHsguYoZ6RrXB KgdSsxUcI2o2I2Rc8RKARxC M92HMX7 jEE7EK18XR93N4ZcMcoxtDD ibGU+PHRhYmxlIHdpZHRoPS aiIJEvPaGchIjvXJ9jIs1vP GVyLWNv zOeuxSDtRaOmg3yqKRGgWLs oPJ1vkEvlW4OfwAE6NOQij2 s5Di68I45qJ3EtiES+PGNvb KT3qJF3 wG4tGtRsPsP6HOlvL934NqI ijVMtIbxoy3obm3sraEh7Dl L5MZPjjtGzrDjpNKE3q3TrD x45R50x IHdpZHRoPSIxNSUiIHZhbGl rhc1zbZ5yBc5+VMAxnIP6sB C5vY4wMxRsGwG6ZYwvS721G nRvcCIv Oabbx1pzi3beqPq7OvBqLNV kuuQrqYlmQGU2p9KtUb71Y6 MhbRbqh9KoDaf0lu68hUXys 9B7oIX1 Q7RcWJYndljzhIYocFacFQ6 uQPTyqvsgRJIpxG1cHAHtC3 j8TtVmBrG6JMrsV0EowcP9P DEwcHQg QWvtSSB0X08eq1Y7AEOlDNY oIXR0wBZ4kC2tnHvxytokwL VmdDsgdmVydGljYWwtYWxpZ 246IHRv aKcdHXVzoJ9wAHKakRSfhCl tBF4zCESzdwlsNngNUJmWLo NBImcvZQzRBtPKOMNACYn4E 4YxEzs4 GMEkfQdzJK9ccQKfSCscWm0 ouRpobFipZC5yZWVbbitdBR MhsY9lPGXymTDoqQorRJ1xP TBpbjtm e477EeKiZOM4SSCsdMMlO6G anW8uXmQqLFOsNXOtA2BngY HvDLeeX686VIgaPrS6OTDfj aDaT7Tz FEUefMilAhA3b7I0Ut0oHw1 tGE7nYCX8HO28QO42iJJvu9 X2xIS0X3CgIUIgpjjoipazr UH3LGVp UIHzaA81mKLmDFasTh9wx2F 1h697ITIwTXSxgT54Us3dfS ccPPDstMAVcG7naxdjw1ljq jogIzAw BLMkBZj4AAy6DODjgCgnEfP cTLW0NfW4FPR4bLVamR5qwV jsscyatC0dCtf+NTQgWWVhc fK3E5Kg Gwv9GVQsiJakVM6vpFBtUMh rJl1cpKrziWjpFQ1wELRxqn cnDUZmcB9uZVJhmTWkiRoaD R7nGDMu dskwl173TaLwOLY0XENafLU mS9XfuJ9dCaPxXHBuOPCiI3 MdtDKfEVduH014SIrtQwB4K HZlcnRp N2LtOJCelWqkDuQ2z1R7Vh3 BYK3eyUM6Y0KwKkg0EOCdtS wnMG6hqBKnRHjhOb7wsBatx JooNC8r SIVjqkmuQVExcN7nQTJflTP mnDorCF3wBCEvanpuj565Zn MqDTW7DKYyvMUyY3HauS3gM iAjMDAw UFTfQ9EzsUAqEBzwK034OWj fGjY1WYUikuQcD9PiZYAcnR hgHqK7v1G3Mu4TfWYuAETfC O88LJ33 GE84V9ApIxhwyQJufJE+PHR hYmxlIHdpZHRoPScxMDAlJy BdePgnPL4bPh3lHHTfCTNtx GxhcHNl AoPis8yvXEYgIZgrQS5hoPl gX7TbyXT1SOLak1q6Oy19N8 4nD8XgbTT+KCVzrRO5jNC7j N4vHwAc CkQ2KNioB551PfUktRJxYvm la6nbv2qkbZk3CaVpKHXknb HxhQmgTAU6q7PkQc14Y50uW HdpZHRo JXBpRYYmLXIpjOhjrf7ceX7 wIi8+WYPhfCC1hZT2sT1nPi QxSsO2FQuuF437RrSzhDNdZ vesI88u O4KnlXJ+UHSrMzk5UTKtcCh xSJ4xvCEoXPyxMx6pNLC4Cs PkSeQlPTdrI8QmSHSagbpcd mlnaHQ6 FDUvOTRirR97Wm6cvNhwBj2 vMPZuGKC9WIYzqYAyL9ZmvV 9vWvOuTMDkTYGoU3AneATeX TkcH387 TFmlIvI0RZTqitHuN2BfYQQ qiOevMxB0s0Q6Xn1WhKkyqB NcJT6oCqWiIBe0T8MaQjr7G CBzdHls ON7gqPWgNOeuCm9qfItuyVs xDL9lOEPzmyfpx982RuYxi8 qsDOOsaMZsHSaxTDQ4K41sc 0P7GKQo NLSnLPX0eJO1bU1raGejylp gbGVmdDsgdmVydGljYWwtYW rzZ431CAKggJszTaBDTlb7K 5BvQvm1 FGSaaZstRL5zlRQnGFvpFh7 hqCbkvVixJA4eRAYzxohdb0 80JfSup2ldIXNwgBJnWJpqL DQ5L13v y2E9AVGiKXHkUSM5xAY1rU3 hbGlnbjogbGVmdDsgdmVydG cdQUxzNThnZ626QAOdhGsrS q4WLnm5 G8CsYgy4BMVdnGglCO1teIA jKDgiPy1gmSfziPktNZ5cXV Mmtmntd011XoQgw3vsXZFmk HQgVGlt QRA1J88bs7K5EJLtFXSeTHA 6sIG0aB6mzAxrfafahBNujL ihwvAxnSxtBIjsLCqrW549S HRvcDsn PlBheWVyOjwvdGQ+TF14hb1 5J0YpGhtwAuz0RBPmTMU6yE Z1xP7lYKOcTSgca0F4oCH3V 2JvcmRl ci1j (more content not included)... Normal [facility] Auto Diffon 09-25-2020 Basophils/100 WBC (Bld) 1.0 % Normal 0.0-2.0 [facility] Comment on above: Order Comment: Order Added by Discern Expert. Performed By: #### 2 [id number], [id number], [id number], [id number], [id number] #### [facility] [address] [place] [address] Basophils/Leukocy juan Auto (Bld) [Pure # fraction] 0.0 E9/L Normal 0.0-0.2 [facility] Comment on above: Order Comment: Order Added by Discern Expert. Performed By: #### 2 [id number], [id number], [id number], [id number], [id number] #### [facility] [address] [place] [address] Eosinophils/100 WBC (Bld) 5.0 % Normal 0.0-8.0 [facility] Comment on above: Order Comment: Order Added by Discern Expert. Performed By: #### 2 169733, 8666430, [id number], [id number], [id number] #### [facility] [address] [place] [address] Eosinophils/Leuko cytes Auto (Bld) [Pure # fraction] 0.2 E9/L Normal 0.0-0.5 [facility] Comment on above: Order Comment: Order Added by Discern Expert. Performed By: #### 2 085781, [id number], [id number], [id number], [id number] #### [facility] [address] [place] [address] 52000 Lymphocytes/100 WBC (Bld) 36.6 % Normal 14.0-50.0 [facility] Comment on above: Order Comment: Order Added by Discern Expert. Performed By: #### 2 820233, 9654737, [id number], [id number], [id number] #### [facility] [address] [place] [address] Lymphocytes/Leuko cytes Auto (Bld) [Pure # fraction] 1.5 E9/L Normal 1.0-4.0 [facility] Comment on above: Order Comment: Order Added by Discern Expert. Performed By: #### 2 707074, 1659258, [id number], [id number], [id number] #### [facility] [address] [place] [address] 10680 Monocytes/100 WBC (Bld) 7.7 % Normal 4.0-14.0 [facility] Comment on above: Order Comment: Order Added by Discern Expert. Performed By: #### 2 514699, 1058656, [id number], 7240312, [id number] #### [facility] [address] [place] [address] Monocytes/Leukocy juan Auto (Bld) [Pure # fraction] 0.3 E9/L Normal 0.2-1.0 [facility] Comment on above: Order Comment: Order Added by Discern Expert. Performed By: #### 2 759144, 9887562, 93262291, 7487971, 5174900 #### [facility] [address] [place] [address] 06795 Neutrophils/100 WBC (Bld) 49.7 % Normal 36.0-75.0 [facility] Comment on above: Order Comment: Order Added by Discern Expert. Performed By: #### 2 556418, 1256078, 05293427, 7012015, 4815397 #### [facility] [address] [place] [address] 17559 Neutrophils/Leuko cytes Auto (Bld) [Pure # fraction] 2.0 E9/L Normal 2.0-7.5 [facility] Comment on above: Order Comment: Order Added by Discern Expert. Performed By: #### 2 537046, 1244497, 03049077, 8627275, 1740242 #### [facility] [address] [place], [place] [id number] CBC w/ Auto Diffon 1 Erythrocyte distribution width (RBC) [Ratio] 13.0 % Normal 10.9-14.2 [facility] Comment on above: Performed By: #### 2 441661, 5976299, 83078093, 1415142, 2826857 #### [facility] [address] [place] [address] Hematocrit (Bld) [Volume fraction] 39.1 % Normal 34.0-46.0 [facility] Comment on above: Performed By: #### 2 869752, 9361577, 94092467, 4135485, 9153678 #### [facility] [address] [place] [address] 89012 Hemoglobin (Bld) [Mass/Vol] 13.3 g/dL Normal 12.0-16.0 [facility] Comment on above: Performed By: #### 2 929213, 6331004, 75392782, 4210794, 9503827 #### [facility] [address] [place] [address] 26979 MCH (RBC) [Entitic mass] 28.7 pg Normal 27.0-34.0 [facility] Comment on above: Performed By: #### 2 876549, 9973029, 86058534, 2891452, 1778866 #### [facility] [address] [place] [address] 95817 MCHC (RBC) [Mass/Vol] 34.0 g/dL Normal 31.4-36.0 [facility] Comment on above: Performed By: #### 2 915144, 3810004, 57724853, 4364146, 9329877 #### [facility] [address] [place] [address] 01650 MCV (RBC) [Entitic vol] 84.4 fL Normal 80.0-100.0 [facility] Comment on above: Performed By: #### 2 695218, 3210286, 03080279, 6678987, 3653687 #### [facility] [address] [place] [address] 35679 Platelet mean volume (Bld) [Entitic vol] 8.0 fL Normal 6.4-10.8 [facility] Comment on above: Performed By: #### 2 761206, 7727215, 08704136, 4874135, 7247126 #### [facility] [address] [place] [address] 61121 Platelets (Bld) [#/Vol] 222.0 E9/L Normal 150.0-500.0 [facility] Comment on above: Performed By: #### 2 639579, 2384634, 58365186, 2851502, 0215315 #### [facility] [address] [place] [address] 83350 RBC (Bld) [#/Vol] 4.6 E12/L Normal 4.3-5.9 [facility] Comment on above: Performed By: #### 2 692180, 6990969, 69204214, 7053992, 2083474 #### [facility] [address] [place] [address] 93937 WBC corrected for nucl RBC Auto (Bld) [#/Vol] 4.1 E9/L Normal 4.0-11.0 [facility] Comment on above: Performed By: #### 2 672116, 0703469, 26325980, 1178326, 5066209 #### [facility] [address] [place] [address] 15131 CMPon 09-25-2020 Albumin [Mass/Vol] 4.0 g/dL Normal 3.3-5.0 [facility] Comment on above: Performed By: #### 2 878295, 2117504, 66431847, 9813738, 4540430 #### [facility] [address] [place] [address] Albumin/Globulin (S) [Mass conc ratio] 1.3 Normal 1.1-2.2 [facility] Comment on above: Performed By: #### 2 692250, 0904101, 14435223, 9026566, 2100499 #### [facility] [address] [place] [address] ALP [Catalytic activity/Vol] 64 Int._Unit/L Normal 21-98 [facility] Comment on above: Performed By: #### 2 283824, 1680046, 40778631, 6926274, 2837053 #### [facility] [address] [place] [address] 33457 ALT No additional P-5'-P [Catalytic activity/Vol] 24 Int._Unit/L Normal 6-46 [facility] Comment on above: Performed By: #### 2 683521, 4469038, 16108312, 2989003, 7212262 #### [facility] [address] [place] [address] 48429 Anion gap [Moles/Vol] 13 mmol/L Normal 6-16 [facility] Comment on above: Performed By: #### 2 241131, 1147282, 08898027, 2632866, 0550832 #### [facility] [address] [place] [address] AST [Catalytic activity/Vol] 17 Int._Unit/L Normal 5-43 [facility] Comment on above: Performed By: #### 2 447652, 7529020, 91694425, 6677248, 2528159 #### [facility] [address] [place] [address] Bilirubin [Mass/Vol] 1.0 mg/dL Normal 0.0-1.1 [facility] Comment on above: Performed By: #### 2 282008, 7797120, 78481340, 9991429, 6017994 #### [facility] [address] [place] [address] Calcium [Mass/Vol] 8.9 mg/dL Normal 8.9-11.1 [facility] Comment on above: Performed By: #### 2 456831, 8252968, 37894343, 1766444, 1819928 #### [facility] [address] [place] [address] Chloride [Moles/Vol] 99 mmol/L Low 101-111 [facility] Comment on above: Performed By: #### 2 046855, 8401685, 19942221, 1286009, 8573003 #### [facility] [address] [place] [address] CO2 [Moles/Vol] 30 mmol/L Normal 21-31 [facility] Comment on above: Performed By: #### 2 514253, 3083138, 92370146, 5592325, 8029364 #### [facility] [address] [place] [address] Creatinine [Mass/Vol] 0.6 mg/dL Normal 0.5-1.3 [facility] Comment on above: Performed By: #### 2 255704, 5397205, 17873256, 0282558, 5735970 #### [facility] [address] [place] [address] Globulin (S) [Mass/Vol] 3.1 g/dL Normal 1.4-4.0 [facility] Comment on above: Performed By: #### 2 502124, 6305621, 02869740, 8307289, 8486219 #### [facility] [address] [place] [address] Glucose [Mass/Vol] 98 mg/dL Normal 55-199 [facility] Comment on above: Result Comment: If t his glucose result represents a fasting glucose, interpretation should refer to the following reference range: 55-99 mg/dL Performed By: #### 2 713085, 8435399, 55933805, 3912356, 3486602 #### [facility] [address] [place] [address] Potassium [Moles/Vol] 3.4 mmol/L Low 3.5-5.3 [facility] Comment on above: Performed By: #### 2 099666, 8441505, 57057138, 8149706, 8083524 #### [facility] [address] [place] [address] Protein [Mass/Vol] 7.1 g/dL Normal 6.0-7.8 [facility] Comment on above: Performed By: #### 2 831729, 6034964, 46033780, 2116650, 9922398 #### [facility] [address] [place] [address] Sodium [Moles/Vol] 139 mmol/L Normal 135-145 [facility] Comment on above: Performed By: #### 2 107808, 3518070, 46233221, 1494278, 2084298 #### [facility] [address] [place] [address] Urea nitrogen [Mass/Vol] 22 mg/dL High 5-21 [facility] Comment on above: Performed By: #### 2 893620, 0262966, 98668688, 9521290, 0516461 #### [facility] [address] [place] [address] Urea nitrogen/Creatini ne [Mass ratio] 37 No Units High 10-20 [facility] Comment on above: Performed By: #### 2 828714, 8727446, 61041546, 7333469, 1535721 #### [facility] [address] [place] [address] Consent for Treatmenton 08-29 Consent for Treatment [id number] D:127 Normal [facility] Lipid Panelon 09-25-2020 Cholesterol [Mass/Vol] 182 mg/dL Normal 120-200 [facility] Comment on above: Performed By: #### 2 913084, 1955290, 05184197, 5496958, 0556965 #### [facility] [address] [place] [address] Cholesterol in HDL [Mass/Vol] 46 mg/dL Invalid Interpretation Code [facility] Comment on above: Result Comment: HDL > or equal to 60 mg/dL: Low cardiovascular risk HDL < 40 mg/dL : High cardiovascular risk Performed By: #### 2 129952, 0741091, 02292486, 0743438, 6248643 #### [facility] [address] [place] [address] Cholesterol in LDL [Mass/Vol] 113 mg/dL Normal <=129 [facility] Comment on above: Performed By: #### 2 323886, 2573322, 39955596, 9872980, 9890573 #### [facility] [address] [place] [address] Cholesterol in VLDL [Mass/Vol] 9 mg/dL Normal 7-40 [facility] Comment on above: Performed By: #### 2 828777, 1029032, 83372809, 6386433, 7975763 #### [facility] [address] [place] [address] Triglyceride [Mass/Vol] 44 mg/dL Normal <=149 [facility] Comment on above: Performed By: #### 2 367169, 8500319, 71050344, 9108526, 8785521 #### [facility] [address] [place] [address] Physician Orderon 09-25-2020 Physician Order [id number] CD:127 Normal [facility] eGFRon 09-25-2020 GFR/1.73 sq M.predicted among blacks MDRD (S/P/Bld) [Vol rate/Area] mL/min/{1.73_m2} Normal >=59 [facility] Comment on above: Order Comment: Order added by Discern Expert. Result Comment: eGFR is race adjusted. AA=. Performed By: #### 2 644173, 9983702, 69799219, 2000590, 7573592 #### [facility] [address] [place] [address] GFR/1.73 sq M.predicted among non-blacks MDRD (S/P/Bld) [Vol rate/Area] mL/min/{1.73_m2} Normal >=59 [facility] [facility] Comment on above: Order Comment: Order added by Discern Expert. Result Comment: Paraeducator adrian kidney disease could be indicated at eGFR's of less than 60 mL/min/1.73m2. Kidney failure is indicated at less than 15 mL/min/1.73m2. Performed By: #### 2 [id number], [id number], [id number] #### [facility] [address] [place] [address] Consent for COVID Vaccineon 07-17-2020 SARS-CoV-2 (COVID-19) RNA HILARY+probe Ql (Unsp spec) [id number] D:127 Normal [facility] Consent for COVID Vaccineon 06-09-2020 SARS-CoV-2 (COVID-19) RNA HILARY+probe Ql (Unsp spec) [id number] CD:127 Normal [facility] Consent for Treatmenton 05-28 Consent for Treatment [id number] CD:127 Normal [facility] Coding Summary.on 06-07-2020 Coding Summary. CODING DATE: 021 [facility] STATUS: PAYOR: Medical Leiter APC DESCRIPTION 1492 [employer] Technology - Level [...] Rapp CphT Date Saved: 06/07/2020 06:[address] [facility] Vital Signs Date Time Vital Sign Value Performing Clinician Pina sallybenny 12-05-2024 08:56-0400 Body mass index (BMI) [Ratio] 37.52 kg/m2 Yu Raphael [employer] Work Phone: [facility] 12-05-2024 08:56-0400 Body weight 107.05 kg Yu Ijeoma [employer] Work Phone: [facility] 12-05-2024 08:56-0400 Diastolic blood pressure 76 mm[Hg] Yu Ijeoma [employer] Work Phone: [facility] 12-05-2024 08:56-0400 Systolic blood pressure 128 mm[Hg] Yu Ijeoma [employer] Work Phone: [facility] 10-10-2024 11:04-0400 Body height 168.9 cm Devika Hemmer PA Work Phone: [facility] 10-10-2024 11:04-0400 Body mass index (BMI) [Ratio] 37.84 kg/m2 Devika Hemmer PA Work Phone: [facility] 10-10-2024 11:04-0400 Body weight 107.96 kg Devika Hemmer PA Work Phone: [facility] 10-10-2024 11:04-0400 Diastolic blood pressure 80 mm[Hg] Devika Hemmer PA Work Phone: [facility] 10-10-2024 11:04-0400 Heart rate 64 /min Devika Hemmer PA Work Phone: [facility] 10-10-2024 11:04-0400 Respiratory rate 17 /min Devika Hemmer PA Work Phone: [facility] 10-10-2024 11:04-0400 SaO2% (BldA) [Mass fraction] 97 % Devika Hemmer PA Work Phone: [facility] 10-10-2024 11:04-0400 Systolic blood pressure 132 mm[Hg] Devika Hemmer PA Work Phone: [facility] 04-11-2024 08:38-0500 Body height 168.9 cm Devika Hemmer PA Work Phone: [facility] 04-11-2024 08:38-0500 Body mass index (BMI) [Ratio] 36.79 kg/m2 Devika Hemmer PA Work Phone: [facility] 04-11-2024 08:38-0500 Body weight 104.96 kg Devika Hemmer PA Work Phone: [facility] 04-11-2024 08:38-0500 Diastolic blood pressure 84 mm[Hg] Devika Hemmer PA Work Phone: [facility] 04-11-2024 08:38-0500 Heart rate 70 /min Devika Hemmer PA Work Phone: [facility] 04-11-2024 08:38-0500 Respiratory rate 16 /min Devika Hemmer PA Work Phone: [facility] 04-11-2024 08:38-0500 SaO2% (BldA) [Mass fraction] 98 % Devika Hemmer PA Work Phone: [facility] 04-11-2024 08:38-0500 Systolic blood pressure 132 mm[Hg] Devika Hemmer PA Work Phone: [facility] 12-02-2023 09:00-0400 Body mass index (BMI) [Ratio] 36.88 kg/m2 Twyla Mcknight PA Work Phone: [facility] 12-02-2023 09:00-0400 Body weight 105.23 kg Twyla Mcknight PA Work Phone: [facility] 12-02-2023 09:00-0400 Diastolic blood pressure 74 mm[Hg] Twyla Najeraey PA Work Phone: [facility] 12-02-2023 09:00-0400 Systolic blood pressure 122 mm[Hg] Twyla Mcknight PA Work Phone: [facility] 11-23-2023 11:32-0400 Body height 168.9 cm Devika Hemmer PA Work Phone: [facility] 11-23-2023 11:32-0400 Body mass index (BMI) [Ratio] 36.31 kg/m2 Devika Hemmer PA Work Phone: [facility] 11-23-2023 11:32-0400 Body weight 103.6 kg Devika Hemmer PA Work Phone: [facility] 11-23-2023 11:32-0400 Diastolic blood pressure 82 mm[Hg] Devika Hemmer PA Work Phone: [facility] 11-23-2023 11:32-0400 Heart rate 66 /min Devika Hemmer PA Work Phone: [facility] 11-23-2023 11:32-0400 Respiratory rate 16 /min Devika Hemmer PA Work Phone: [facility] 11-23-2023 11:32-0400 SaO2% (BldA) [Mass fraction] 95 % Devika Hemmer PA Work Phone: [facility] 11-23-2023 11:32-0400 Systolic blood pressure 120 mm[Hg] Devika Hemmer PA Work Phone: [facility] Healthcare Encounters Encounter Date Encounter Type Care Provider Facility Start: 12-05-2024 End: 12-05-2024 Bamboo flowsheet Yu Raphael [employer]INGER Work Phone: [facility] Alaina OBSTACEY Start: 12-05-2024 End: 12-05-2024 Bamboo flowsheet Yu Raphael [employer] Work Phone: [facility] Alaina OBSTACEY Start: 12-05-2024 End: 12-05-2024 Patient encounter procedure Yu Raphael NP Work Phone: [facility] Start: 12-05-2024 End: 12-05-2024 Periodic preventive med est patient 40-64yrs Yu Raphael NP Work Phone: [facility] Comment on above: Well woman exam with routine gynecological exam; H/O: hysterectomy; Breast cancer screening by mammogram; Osteoporosis, post-menopausal ; Hemorrhoids, unspecified hemorrhoid type; Vaginal itching Start: 10-17-2024 End: 10-17-2024 Telephone encounter Devika BOWIE Work Phone: [facility] Start: 10-10-2024 End: 10-10-2024 Bamboo flowsheet Devika Esparza PA Work Phone: [facility] Start: 10-10-2024 End: 10-10-2024 Bamboo flowsheet Devika Esparza PA Work Phone: [facility] Start: 10-10-2024 End: 10-10-2024 Patient encounter status Devika BOWIE Work Phone: [facility] Work Phone: Start: 10-10-2024 End: 10-10-2024 Periodic preventive med est patient 40-64yrs Devika Esparza PA Work Phone: [facility] Comment on above: Wellness examination (Primary Dx); Sleep apnea in adult; Essential hypertension ; Right bundle branch block; Gastroesophageal reflux disease without esophagitis; Atrophic vaginitis; Obesity (BMI 30-39.9); Anemia, unspecified type; Fibrocystic breast changes, unspecified laterality; Hypopotassemia; Seasonal allergic rhinitis due to pollen; Family history of thyroid disease; Other fatigue; Abnormal weight gain Start: 10-10-2024 End: 10-10-2024 ambulatory DEVIKA ESPARZA Not Available Start: 04-11-2024 End: 04-11-2024 Bamboo flowsheet Devika Esparza PA Work Phone: [facility] Start: 04-11-2024 End: 04-11-2024 Bamboo flowsheet Devika Esparza PA Work Phone: [facility] Start: 04-11-2024 End: 04-11-2024 Office outpatient visit 15 minutes Devika BOWIE Work Phone: [facility] Comment on above: Essential hypertensi on (CMS/HCC) (Primary Dx); Obesity (BMI 30-39.9) Start: 04-11-2024 End: 04-11-2024 ambulatory DEVIKA ESPARZA Not Available Start: 12-02-2023 End: 12-02-2023 Bamboo flowsheet Twyla BOWIE Work Phone: [facility] Start: 12-02-2023 End: 12-08-2023 Bamboo flowsheet Twyla BOWIE Work Phone: [facility] Start: 12-02-2023 End: 12-08-2023 Clinisync Result Encounter Generic External Data Provider [facility] Unsolicited Start: 12-02-2023 End: 12-02-2023 Patient encounter procedure Twyla BOWIE Work Phone: [facility] Start: 12-02-2023 End: 12-02-2023 Periodic preventive med est patient 40-64yrs Twyla BOWIE Work Phone: [facility] Comment on above: Well woman exam with routine gynecological exam; Breast cancer screening by mammogram; Osteoporosis, post-menopausal ([facility] Start: 12-02-2023 End: 12-02-2023 ambulatory TWYLA MCKNIGHT Not Available Start: 11-23-2023 End: 11-23-2023 Bamboo flowsheet Devika Esparza PA Work Phone: [facility] Start: 11-23-2023 End: 11-23-2023 Bamboo flowsheet Devika Esparza PA Work Phone: [facility] Start: 11-23-2023 End: 11-23-2023 Office outpatient visit 15 minutes Devika BOWIE Work Phone: [facility] Comment on above: Flexural eczema (Mari gabriella Dx) Start: 11-23-2023 End: 11-23-2023 ambulatory DEVIKA ESPARZA Not Available Start: 11-08-2021 End: 11-09-[address] POOL SORIA Facility: Start: 10-29-2021 End: 10-29-[address] MONIQUE POTTER Facility:[facility] Start: 10-28-2021 End: 10-28-2021 ambulatory YU RAPHAEL Facility:[facility] Start: 10-22-2021 End: 10-22-2021 ambulatory YU RAPHAEL Facility:[facility] Start: 10-11-2021 End: 10-12-[address] NIOC DOBSON Facility:[facility] Start: 10-08-2021 Encounter for genera l adult medical examination without abnormal findings DR DEVIKA ESPARZA [facility] Start: 10-04-2021 End: 10-05-[address] DEVIKA ESPARZA Facility:[facility] Start: 10-04-2021 End: 10-05-2021 Encounter for general adult medical examination without abnormal findings DR DEVIKA ESPARZA Facility:[facility] Start: 02-27-2021 End: 02-27-2021 ambulatory YU RAPHAEL Facility:[facility] Procedures Date Procedure Procedure Detail Performing Clinician Start: 12-02-2023 IGP,APTIMA HPV,AGE GDLN Twyla BOWIE Work Phone: Start: 10-20-2023 Mammography Devika BOWIE Work Phone: Start: 11-24-2022 Cytp cerv/vag auto t hin layer prep mnl screen Moniquebenny Potter DO Work Phone: Start: 10-15-2016 Colonoscopy Devika BOWIE Work Phone: H/O: hysterectomy H/O: hysterectomy Krist andrea Raphael [employer]INGER Work Phone: Plan of Treatment Date Care Activity Detail Author Start: 10-15-2026 Screening for malign ant neoplasm of colon [facility] Start: 12-13-2025 End: 12-13-2025 Patient encounter procedure 12/13/2025 10:00 AM EDT Procedure Visit JENNIFER MARTINEZ [address] [place] [id number] Twyla Mcknight PA [address] [place] [address] [facility] Start: 04-12-2025 End: 04-12-2025 Patient encounter procedure [facility] Start: 01-02-2025 End: 01-02-2025 Patient encounter procedure 01/02/2025 8:50 AM EDT Office Visit [facility] [address] [place] [address] Yu Raphael, [employer] WIRE STRINGER [address] [place] [address] [facility] Start: 12-05-2024 End: 12-05-2025 DXA Skeletal system Views for bone density DEXA bone density Imaging Routine Osteoporosis, post-menopausal Expected: 12/05/2024 (Approximate), Expires: 12/05/2025 [facility] Comment on above: Expected: 12/05/2024 (Approximate), Expires: 12/05/2025 Start: 12-05-2024 End: 02-04-2026 MG Breast - bilateral Screening Bilateral screening mammogram Imaging Routine Breast cancer screening by mammogram Expected: 12/05/2024 (Approximate), Expires: 02/04/2026 [facility] Work Phone: Comment on above: Expected: 12/05/2024 (Approximate), Expires: 02/04/2026 Start: 12-05-2024 End: 12-05-2024 Patient encounter procedure [facility] Comment on above: Arrived Start: 11-28-2024 Influenza vaccination Influenza Vacc ine (#1) [facility] Start: 10-19-2024 Screening for malign ant neoplasm of breast Mammogram [facility] Start: 10-10-2024 End: 10-10-2025 Cobalamin (Vitamin B12) [Mass/volume] in Serum or Plasma Vitamin B12 Lab Routine Wellness examination Other fatigue Abnormal weight gain Expected: 10/10/2024 (Approximate), Expires: 10/10/2025 [facility] Comment on above: Expected: 10/10/2024 (Approximate), Expires: 10/10/2025 Start: 10-10-2024 End: 10-10-2024 Patient encounter procedure 10/10/2024 11:00 AM EDT Office Visit [facility] [address] [place] [address] Devika Esparza PA [address] [place] [address] Arrived [facility] Comment on above: Arrived Start: 04-11-2024 End: 04-11-2024 Patient encounter procedure [facility] Comment on above: Arrived Start: 12-02-2023 End: 12-01-2024 DXA Skeletal system Views for bone density DEXA bone density Imaging Routine Breast cancer screening by mammogram Expected: 12/02/2023 (Approximate), Expires: 12/01/2024 [facility] Work Phone: Comment on above: Expected: 12/02/2023 (Approximate), Expires: 12/01/2024 Start: 12-02-2023 End: 12-02-2023 Patient encounter procedure [facility] Comment on above: Arrived Start: 11-29-2023 Influenza vaccination Influenza Vacc ine (#1) [facility] Start: 11-23-2023 End: 11-23-2023 Patient encounter procedure 11/23/2023 11:30 AM EDT Office Visit [facility] [address] [place] [address] Devika Esparza PA [address] [place] [address] Arrived [facility] Comment on above: Arrived Start: 1965 Screening for malign ant neoplasm of colon [facility] 25-hydroxyvitamin D3 [Mass/volume] in Serum or Plasma Vitamin D 25 hydroxy Total Lab Routine Wellness examination Other fatigue Abnormal weight gain Ordered: 10/10/2024 [facility] Comment on above: Ordered: 10/10/2024 CBC W Auto Different ial panel - Blood CBC and differential Lab Routine Wellness examination Essential hypertension Anemia, unspecified type Other fatigue Ordered: 10/10/2024 [facility] Work Phone: Comment on above: Ordered: 10/10/2024 Comprehensive metabo lic 2000 panel - Serum or Plasma Comprehensive metabolic panel Lab Routine Wellness examination Essential hypertension Hypopotassemia Abnormal weight gain Ordered: 10/10/2024 [facility] Comment on above: Ordered: 10/10/2024 Lipid 1996 panel - Serum or Plasma Lipid panel Lab Routine Wellness examination Essential hypertension Ordered: 10/10/2024 [facility] Comment on above: Ordered: 10/10/2024 THIN PREP TIS PAP AN D HR HPV DNA THIN PREP TIS PAP AND HR HPV DNA Pathology and Cytology Routine Well woman exam with routine gynecological exam Ordered: 12/02/2023 [facility] Comment on above: Ordered: 12/02/2023 THIN PREP TIS PAP AN D HR HPV DNA THIN PREP TIS PAP AND HR HPV DNA Pathology and Cytology Routine Well woman exam with routine gynecological exam H/O: hysterectomy Ordered: 12/05/2024 [facility] Comment on above: Ordered: 12/05/2024 TSH W/REFLEX TO FT4 TSH W/REFLEX TO FT4 Lab Routine Wellness examination Family history of thyroid disease Other fatigue Abnormal weight gain Ordered: 10/10/2024 [facility] Comment on above: Ordered: 10/10/2024 Immunizations Immunization Date Immunization Notes Care Provider [facility] 01-20-2024 influenza virus vacc ine, unspecified formulation Devika Hemandrew BOWIE Work Phone: [facility] 12-29-2019 influenza, injectabl e, quadrivalent, preservative free Devika Hemandrew PA Work Phone: [facility] 12-29-2019 influenza virus vacc ine, unspecified formulation Devika Hemandrew BOWIE Work Phone: [facility] 05-23-2019 influenza, injectabl e, madin belia canine kidney, preservative free Devika Hemandrew BOWIE Work Phone: [facility] 02-26-2019 seasonal influenza, intradermal, preservative free Devika Hemandrew BOWIE Work Phone: [facility] 03-26-2017 influenza, injectabl e, quadrivalent, preservative free Devika Hemmer JAMIR Work Phone: [facility] Payers Date Payer Category Payer Private Health Insurance [id number] 2022 Private Health Insurance [id number] 2019 Unknown [id number] 1966 Unknown [id number] 2.16.84 [id number] 1966 Unknown [id number] 2.16.84 [id number] 1966 Unknown [id number] 2.16.84 [id number] 1966 Unknown [id number] 2.16.84 [id number] 1966 Unknown [id number] 2.16.84 [id number] 1966 Unknown [id number] 2.16.84 [id number] 1966 Unknown [id number] 2.16.84 [id number] 1966 Unknown [id number] 2.16.8 [id number] 1966 Unknown [id number] 2.16.84 [id number] 1966 Unknown [id number] 2.16.84 [id number] 1966 Unknown [id number] 2.16.84 [id number] Social History Date Type Detail Facility Start: 11-17-2022 End: 11-23-2023 Tobacco smoking status NHIS Never smoked tobacco [facility] care Start: 11-23-2023 Tobacco use and exposure Smoke less tobacco non-user [facility] Start: 11-23-2023 End: 12-05-2024 Alcoholic beverage intake Current drinker of alcohol (finding) [facility] Start: 07-17-2023 End: 11-23-2023 Alcoholic beverage intake [facility] Start: 07-17-2023 End: 10-10-2024 Social connection and isolation panel [facility] Do you belong to any clubs or organizations such as jew groups, unions, fraternal or athletic groups, or school groups? No [facility] Are you now , , , , never or living with a partner? [facility] How often to you hav e a drink containing alcohol? 2-4 times a month [facility] How many standard dr inks containing alcohol do you have on a typical day? 1 or 2 [facility] How often do you hav e 6 or more drinks on 1 occasion? Never [facility] How hard is it for y ou to pay for the very basics like food, housing, medical care, and heating Not hard at all [facility] (I/We) worried cathy er (my/our) food would run out before (I/we) got money to buy more. Never true [facility] Start: 10-02-2022 Alcohol Comment Caffeine intak e: 1-2 cups per day coffee, soda [facility] Start: 1965 Sex assigned at Not on file N [facility] Healthcare Functional Status Date Assessment Result Facility 10-10-2024 Patient Health Quest ionnaire 2 item (PHQ-2) [Reported] [facility] Clinical Notes 11-23-2023 to 12-05-2024 Gwen Bridges LPN - 12/05/2024 9:00 AM EDTTelephone Encounter - JAMIR Ramos - 10/17/2024 7:49 AM EDTTelephone Encounter - JAMIR Ramos - 10/17/2024 7:49 AM EDT Note Date & Type Note Facility 12-05-2024 History of Presen t illness Narrative Reason for Appointment: Patient ID: Loni Reyes is a 59 y.o. female who presents for Gynecologic Exam Patient presents today for Annual Exam. MEDICATIONS Current Outpatient Medications Medication Instructions aspirin (Aspirin Low Dose) 81 MG chewable tablet 1 tablet, Oral, Every 24 hours calcium carbonate 1500 (600 Ca) MG tablet 1 tablet, Oral, Every 24 hours cetirizine (ZYRTEC ALLERGY) 10 mg, Oral, Every 24 hours Cyanocobalamin (Vitamin B12) 1000 MCG tablet controlled-release 1 tablet, Oral, Daily fluticasone (Flonase) 50 MCG/ACT nasal spray ADMINISTER 2 SPRAYS INTO EACH NOSTRIL EVERY DAY lisinopril-hydroCHLOROthiazide 20-25 MG tablet 1 tablet, Oral, Daily mometasone (Elocon) 0.1 % cream Topical, Daily Multiple Vitamin (MULTIVITAMINS PO) 1 tablet, Oral, Every 24 hours omega-3 (Fish Oil) 1200 MG capsule 1 capsule, Oral, Every 24 hours omeprazole (PRILOSEC) 40 mg, Oral, Daily, Do not crush or chew. potassium chloride CR (Klor-Con M10) 10 MEQ ER tablet 10 mEq, Oral, Daily, Do not crush or chew. ALLERGIES No Known Allergies PROBLEMS Active Ambulatory Problems Diagnosis Date Noted Anemia 06/29/2008 Atrophic vaginitis 10/05/2022 Essential hypertension 10/05/2022 Fibrocystic breast changes 10/05/2022 Gastroesophageal reflux disease 10/05/2022 Hypopotassemia 04/17/2009 Obesity (BMI 30-39.9) 10/05/2022 Right bundle branch block 09/03/2007 Seasonal allergic rhinitis 10/05/2022 Sleep apnea in adult 10/05/2022 Family history of thyroid disease 10/10/2024 Resolved Ambulatory Problems Diagnosis Date Noted Adjustment disorder with depressed mood 10/05/2022 Nuclear senile cataract 10/05/2022 Past Medical History: Diagnosis Date Abnormal nuclear stress test 01/18/2019 COVID-19 09/2021 Hypertension Menorrhagia 2012 Metrorrhagia Umbilical hernia HISTORY PAST MEDICAL HISTORY SOCIAL HISTORY Past Medical History: Diagnosis Date Abnormal nuclear stress test 01/18/2019 COVID-19 09/2021 Hypertension Menorrhagia 2012 adenomyosis Metrorrhagia Umbilical hernia Social History Tobacco Use Smoking status: Never Smokeless tobacco: Never Vaping Use Vaping status: Never Used Substance Use Topics Alcohol use: Yes Alcohol/week: 2.0 standard drinks of alcohol Types: 2 Standard drinks or equivalent per week Comment: Caffeine intake: 1-2 cups per day coffee, soda Drug use: Never FAMILY HISTORY Family History Problem Relation Name Age of Onset Uterine cancer Mother Heart disease Father Other (MVA) Son 1 son, Diabetes type I Daughter SURGICAL HISTORY Past Surgical History: Procedure Laterality Date COLONOSCOPY 10/15/2016 DILATION AND CURETTAGE 2001 Metrorrhagia DILATION AND CURETTAGE Hysterectomy HEART CATH 02/04/2019 HERNIA REPAIR 2000 HM MAMMOGRAPHY 09/28/2019 negative PAP SMEAR 04/2021 negative TOTAL ABDOMINAL HYSTERECTOMY W/ BILATERAL SALPINGOOPHORECTOMY REVIEW OF SYSTEMS Review of Systems: Review of Systems Constitutional: Negative. HENT: Negative. Eyes: Negative. Respiratory: Negative. Cardiovascular: Negative. Gastrointestinal: Negative. Genitourinary: Negative. Musculoskeletal: Negative. Skin: Negative. Neurological: Negative. All other systems reviewed and are negative. Hematological: Negative. Endocrine: Negative. Allergic/Immunologic: Negative. OBJECTIVE Objective: Physical Exam Constitutional: Appearance: Normal appearance. She is well-developed. Genitourinary: Vulva normal. Vaginal cuff intact. Cervix is absent. Uterus is absent. Breasts: Breasts are soft. Right: Normal. Left: Normal. Cardiovascular: Rate and Rhythm: Normal rate and regular rhythm. Abdominal: General: Bowel sounds are normal. There is no distension. Palpations: Abdomen is soft. Tenderness: There is no abdominal tenderness. There is no guarding or rebound. Musculoskeletal: General: No swelling. Normal range of motion. Right lower leg: No edema. Left lower leg: No edema. Neurological: Mental Status: She is alert and oriented to person, place, and time. Skin: General: Skin is warm and dry. Psychiatric: Mood and Affect: Mood normal. Behavior: Behavior normal. Vitals and nursing note reviewed. Exam conducted with a internet marketing specialist present. Vitals: Estimated body mass index is 37.52 kg/m as calculated from the following: Height as of 10/10/24: 5' 6.5 . Weight as of this encounter: 236 lb. BP: 128/76 No LMP recorded. Patient is postmenopausal. ASSESSMENT & PLAN ICD-10-CM 1. Well woman exam with routine gynecological exam Z01.419 THIN PREP TIS PAP AND HR HPV DNA 2. H/O: hysterectomy Z90.710 THIN PREP TIS PAP AND HR HPV DNA 3. Breast cancer screening by mammogram Z12.31 Bilateral screening mammogram Bilateral screening mammogram 4. 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 Patient states she is doing well and has no complaints. Pap was obtained without difficulty and patient given mammogram and Dexa Scan orders to have scheduled/obtained. Orders Placed This Encounter Procedures Bilateral screening mammogram DEXA bone density Complaints of vaginal itching and discussed hormones replacement if needed. Estrace cream sent to use daily for 2 weeks and then twice weekly thereafter. Patient to have telehealth in 4 weeks to get maintenance dose of cream sent and ensure medication helped. Follow Up: Patient is to return in one year for annual unless needed otherwise. Documented by Gwen Bridges LPN on behalf of: Yu Raphael NP documented in this encounter [facility] 10-17-2024 Telephone encount er Note Please let pt know that her recent labs showed her LDL (bad cholesterol) has improved from her previous of 170 but remains elevated at 147. Continue to aim for healthy diet, stay active. Her Vitamin B12 level was significantly elevated, would recommend she decrease her Vitamin B12 supplement to once a day. Rest of her labs were either improved or normal. No other changes recommended at this time. [facility] 10-17-2024 Miscellaneous Notes Formattin g of this note might be different from the original. Please let pt know that her recent labs showed her LDL (bad cholesterol) has improved from her previous of 170 but remains elevated at 147. Continue to aim for healthy diet, stay active. Her Vitamin B12 level was significantly elevated, would recommend she decrease her Vitamin B12 supplement to once a day. Rest of her labs were either improved or normal. No other changes recommended at this time. documented in this encounter [facility] 10-10-2024 History of Presen t illness Narrative Images from the original note were not included. Subjective Patient ID: Loni Reyes is a 59 y.o. female who presents for a wellness. Loni presents for her yearly wellness. She does have a concern with being tired, no energy. She is hoping that her blood work will tell her more. She would like to have her thyroid check. She does have a family history of her mom having thyroid disease. Does not exercise. States is a sweet lover. States she doesn't cook, her cooks and hands her a plate, so eats more than she probably should. Daughter is in her residency to become a pharmacist, is living with them for a year. Over the past 2 weeks, how often have you been bothered by any of the following problems? Little interest or pleasure in doing things: Not at all Feeling down, depressed, or hopeless: Not at all Patient Health Questionnaire-2 Score: 0 Current Outpatient Medications on File Prior to Visit Medication Sig Dispense Refill aspirin (Aspirin Low Dose) 81 MG chewable tablet Chew 1 tablet 1 (one) time each day at the same time. calcium carbonate 1500 (600 Ca) MG tablet Take 1 tablet by mouth 1 (one) time each day at the same time. cetirizine (ZyrTEC ALLERGY) 10 MG tablet Take 10 mg by mouth 1 (one) time each day at the same time. Cyanocobalamin (Vitamin B12) 1000 MCG tablet controlled-release Take 1 tablet by mouth every 12 (twelve) hours. fluticasone (Flonase) 50 MCG/ACT nasal spray ADMINISTER 2 SPRAYS INTO EACH NOSTRIL EVERY DAY 15.8 mL 3 lisinopril-hydroCHLOROthiazide 20-25 MG tablet Take 1 tablet by mouth Daily 90 tablet 3 mometasone (Elocon) 0.1 % cream Apply topically Daily 15 g 2 Multiple Vitamin (MULTIVITAMINS PO) Take 1 tablet by mouth 1 (one) time each day at the same time. omega-3 (Fish Oil) 1200 MG capsule Take 1 capsule by mouth 1 (one) time each day at the same time. omeprazole (PriLOSEC) [address] capsule Take 1 capsule (40 mg) by mouth Daily Do not crush or chew. 90 capsule 3 potassium chloride CR (Klor-Con M10) 10 MEQ ER tablet Take 10 mEq by mouth in the morning. Do not crush or chew. . No current facility-administered medications on file prior to visit. I have reviewed and reconciled the history and medication list with the patient today. No Known Allergies Social History Tobacco Use Smoking status: Never Smokeless tobacco: Never Vaping Use Vaping status: Never Used Substance Use Topics Alcohol use: Yes Alcohol/week: 2.0 standard drinks of alcohol Types: 2 Standard drinks or equivalent per week Comment: Caffeine intake: 1-2 cups per day coffee, soda Drug use: Never Family History Problem Relation Name Age of Onset Uterine cancer Mother Heart disease Father Other (MVA) Son 1 son, Diabetes type I Daughter Past Medical History: Diagnosis Date Abnormal nuclear stress test 01/18/2019 COVID-19 09/2021 Hypertension Menorrhagia 2012 adenomyosis Metrorrhagia Umbilical hernia Past Surgical History: Procedure Laterality Date COLONOSCOPY 10/15/2016 DILATION AND CURETTAGE 2001 Metrorrhagia DILATION AND CURETTAGE Hysterectomy HEART CATH 02/04/2019 HERNIA REPAIR 2000 HM MAMMOGRAPHY 09/28/2019 negative PAP SMEAR 04/2021 negative TOTAL ABDOMINAL HYSTERECTOMY W/ BILATERAL SALPINGOOPHORECTOMY Visit Vitals BP 132/80 Pulse 64 Resp 17 Ht 5' 6.5 Wt 238 lb SpO2 97% BMI 37.84 kg/m OB Status Postmenopausal Smoking Status Never BSA 2.25 m Review of Systems Constitutional: Positive for fatigue. Negative for chills and fever. HENT: Negative for congestion, ear pain, rhinorrhea and sore throat. Eyes: Negative for pain, discharge and visual disturbance. Respiratory: Negative for cough, shortness of breath and wheezing. Cardiovascular: Negative for chest pain, palpitations and leg swelling. Gastrointestinal: Negative for abdominal pain, constipation, diarrhea, nausea and vomiting. Genitourinary: Negative for difficulty urinating, dysuria and frequency. Musculoskeletal: Negative for arthralgias and back pain. Skin: Negative for rash. Neurological: Negative for dizziness and numbness. Psychiatric/Behavioral: Negative for sleep disturbance. The patient is not nervous/anxious. Objective Physical Exam Constitutional: General: She is not in acute distress. Appearance: She is well-developed. She is obese. HENT: Head: Normocephalic and atraumatic. Right Ear: Tympanic membrane and ear canal normal. Left Ear: Tympanic membrane and ear canal normal. Nose: Nose normal. Mouth/Throat: Mouth: Mucous membranes are moist. Pharynx: No posterior oropharyngeal erythema. Eyes: General: No scleral icterus. Extraocular Movements: Extraocular movements intact. Conjunctiva/sclera: Conjunctivae normal. Pupils: Pupils are equal, round, and reactive to light. Cardiovascular: Rate and Rhythm: Normal rate and regular rhythm. Heart sounds: Normal heart sounds. No murmur heard. Pulmonary: Effort: Pulmonary effort is normal. No respiratory distress. Breath sounds: Normal breath sounds. No wheezing, rhonchi or rales. Abdominal: General: Bowel sounds are normal. There is no distension. Palpations: Abdomen is soft. Tenderness: There is no abdominal tenderness. There is no guarding. Musculoskeletal: General: No swelling or deformity. Normal range of motion. Cervical back: Normal range of motion and neck supple. No tenderness. Skin: General: Skin is warm and dry. Capillary Refill: Capillary refill takes less than 2 seconds. Findings: No rash. Neurological: General: No focal deficit present. Mental Status: She is alert and oriented to person, place, and time. Cranial Nerves: No cranial nerve deficit. Sensory: No sensory deficit. Motor: No weakness. Gait: Gait normal. Deep Tendon Reflexes: Reflexes normal. Psychiatric: Mood and Affect: Mood normal. Behavior: Behavior normal. Thought Content: Thought content normal. Judgment: Judgment normal. Assessment/Plan Diagnoses and all orders for this visit: Wellness examination - CBC and differential - Comprehensive metabolic panel - TSH W/REFLEX TO FT4 - Vitamin D 25 hydroxy Total - Lipid panel - Vitamin B12; Future Wellness form reviewed in detail with the patient. Encouraged patient to stay up to date on immunizations and preventative testing. Encouraged healthy diet, stay active. Will continue with yearly wellness exams. Sleep apnea in adult Cannot tolerate a CPAP due to claustrophobia. Reviewed [facility] with patient. Encouraged pt to contact office if she would like to proceed with a referral. Essential hypertension - CBC and differential - Comprehensive metabolic panel - Lipid panel Patient's blood pressure is currently stable. Continue with current medications and I will continue to monitor. Advised her BP will be easier to keep controlled if she is able to have her sleep apnea treated and controlled. Right bundle branch block This is a chronic medical condition that is stable since last assessment. Gastroesophageal reflux disease without esophagitis This is a chronic medical condition that is stable since last assessment. No changes in treatment are suggested at this time. Continue Prilosec as prescribed. Atrophic vaginitis This is a chronic medical condition that is stable since last assessment. Obesity (BMI 30-39.9) Encouraged portion control, decrease simple sugars and carbohydrates, gradually increase activity level. Aim for gradual steady weight loss. Anemia, unspecified type - CBC and differential This is a chronic medical condition that is stable since last assessment. Will continue to monitor with routine labs. Fibrocystic breast changes, unspecified laterality This is a chronic medical condition that is stable since last assessment. Hypopotassemia - Comprehensive metabolic panel This is a chronic medical condition that is stable since last assessment. Will continue to monitor with routine labs. Seasonal allergic rhinitis due to pollen This is a chronic medical condition that is stable since last assessment. No changes in treatment are suggested at this time. Continue allergy meds as needed. Family history of thyroid disease - TSH W/REFLEX TO FT4 Will r/o thyroid disease with upcoming lab work. Other fatigue - CBC and differential - TSH W/REFLEX TO FT4 - Vitamin D 25 hydroxy Total - Vitamin B12; Future Will evaluate further with upcoming labs. Reviewed different contributing factors to fatigue, uncontrolled sleep apnea, weight gain, no routine exercise. Abnormal weight gain - Comprehensive metabolic panel - TSH W/REFLEX TO FT4 - Vitamin D 25 hydroxy Total - Vitamin B12; Future Will assess further with fasting labs. Follow up in about 6 months (around 04/12/2025) for Hypertension. documented in this encounter [facility] 04-11-2024 History of Presen t illness Narrative Images from the original note were not included. Subjective Patient ID: Loni Reyes is a 58 y.o. female who presents for hypertension. Loni is present today for follow up hypertension. Denies chest pain, SOB, blurry vision. Admits headaches off/on. Does not check BP's at home. Currently on Lisinopril-hydrochlorothiazide. Current Outpatient Medications on File Prior to Visit Medication Sig Dispense Refill aspirin (Aspirin Low Dose) 81 MG chewable tablet Chew 1 tablet 1 (one) time each day at the same time. calcium carbonate 1500 (600 Ca) MG tablet Take 1 tablet by mouth 1 (one) time each day at the same time. cetirizine (ZyrTEC ALLERGY) 10 MG tablet Take 10 mg by mouth 1 (one) time each day at the same time. Cyanocobalamin (Vitamin B12) 1000 MCG tablet controlled-release Take 1 tablet by mouth every 12 (twelve) hours. fluticasone (Flonase) 50 MCG/ACT nasal spray ADMINISTER 2 SPRAYS INTO EACH NOSTRIL EVERY DAY 15.8 mL 3 lisinopril-hydroCHLOROthiazide 20-25 MG tablet Take 1 tablet by mouth Daily 90 tablet 3 mometasone (Elocon) 0.1 % cream Apply topically Daily 15 g 2 Multiple Vitamin (MULTIVITAMINS PO) Take 1 tablet by mouth 1 (one) time each day at the same time. omega-3 (Fish Oil) 1200 MG capsule Take 1 capsule by mouth 1 (one) time each day at the same time. omeprazole (PriLOSEC) [address] capsule Take 1 capsule (40 mg) by mouth Daily Do not crush or chew. 90 capsule 3 potassium chloride CR (Klor-Con M10) 10 MEQ ER tablet Take 10 mEq by mouth in the morning. Do not crush or chew. . No current facility-administered medications on file prior to visit. I have reviewed and reconciled the history and medication list with the patient today. No Known Allergies Social History Tobacco Use Smoking status: Never Smokeless tobacco: Never Vaping Use Vaping status: Never Used Substance Use Topics Alcohol use: Yes Alcohol/week: 2.0 standard drinks of alcohol Types: 2 Standard drinks or equivalent per week Comment: Caffeine intake: 1-2 cups per day coffee, soda Drug use: Never Family History Problem Relation Name Age of Onset Uterine cancer Mother Heart disease Father Other (MVA) Son 1 son, Diabetes type I Daughter Past Medical History: Diagnosis Date Abnormal nuclear stress test 01/18/2019 COVID-19 09/2021 Hypertension (CMS/HCC) Menorrhagia 2012 adenomyosis Metrorrhagia Umbilical hernia Past Surgical History: Procedure Laterality Date COLONOSCOPY 10/15/2016 DILATION AND CURETTAGE 2001 Metrorrhagia DILATION AND CURETTAGE Hysterectomy HEART CATH 02/04/2019 HERNIA REPAIR 2000 [facility] MAMMOGRAPHY 09/28/2019 negative PAP SMEAR 04/2021 negative TOTAL ABDOMINAL HYSTERECTOMY W/ BILATERAL SALPINGOOPHORECTOMY Visit Vitals BP 132/84 Pulse 70 Resp 16 Ht 5' 6.5 Wt 231 lb 6.4 oz SpO2 98% BMI 36.79 kg/m OB Status Postmenopausal Smoking Status Never BSA 2.22 m Review of Systems Constitutional: Negative for chills, fatigue and fever. Respiratory: Negative for cough, shortness of breath and wheezing. Cardiovascular: Negative for chest pain, palpitations and leg swelling. Gastrointestinal: Negative for abdominal pain, constipation, diarrhea, nausea and vomiting. Skin: Negative for rash. Neurological: Positive for headaches. Objective Physical Exam Constitutional: General: She is not in acute distress. Appearance: She is well-developed. She is obese. Comments: Very pleasant HENT: Head: Normocephalic and atraumatic. Eyes: General: No scleral icterus. Conjunctiva/sclera: Conjunctivae normal. Cardiovascular: Rate and Rhythm: Normal rate and regular rhythm. Heart sounds: Normal heart sounds. No murmur heard. Pulmonary: Effort: Pulmonary effort is normal. No respiratory distress. Breath sounds: Normal breath sounds. No wheezing, rhonchi or rales. Skin: General: Skin is warm and dry. Neurological: General: No focal deficit present. Mental Status: She is alert and oriented to person, place, and time. Psychiatric: Mood and Affect: Mood normal. Behavior: Behavior normal. Assessment/Plan Diagnoses and all orders for this visit: Essential hypertension (CMS/HCC) Patient's blood pressure is currently stable. Continue with current medications and I will continue to monitor. Goal BP remains less than 130/80. Obesity (BMI 30-39.9) Encouraged portion control, decrease simple sugars and carbohydrates, gradually increase activity level. Aim for gradual steady weight loss. Follow up in about 6 months (around 10/09/2024) for Wellness. documented in this encounter [facility] 12-02-2023 History of Presen t illness Narrative Reason for Appointment: Patient ID: Loni Reyes is a 58 y.o. female who presents for Gynecologic Exam Patient presents today for Annual Exam. MEDICATIONS Current Outpatient Medications Medication Instructions aspirin (Aspirin Low Dose) 81 MG chewable tablet 1 tablet, Oral, Every 24 hours calcium carbonate 1500 (600 Ca) MG tablet 1 tablet, Oral, Every 24 hours cetirizine (ZYRTEC ALLERGY) 10 mg, Oral, Every 24 hours Cyanocobalamin (Vitamin B12) 1000 MCG tablet controlled-release 1 tablet, Oral, Every 12 hours fluticasone (Flonase) 50 MCG/ACT nasal spray ADMINISTER 2 SPRAYS INTO EACH NOSTRIL EVERY DAY lisinopril-hydroCHLOROthiazide 20-25 MG tablet TAKE 1 TABLET BY MOUTH EVERY DAY mometasone (Elocon) 0.1 % cream Topical, Daily Multiple Vitamin (MULTIVITAMINS PO) 1 tablet, Oral, Every 24 hours omega-3 (Fish Oil) 1200 MG capsule 1 capsule, Oral, Every 24 hours omeprazole (PriLOSEC) [address] capsule TAKE 1 CAPSULE BY MOUTH EVERY DAY potassium chloride CR (Klor-Con M10) 10 MEQ ER tablet 10 mEq, Oral, Daily, Do not crush or chew. ALLERGIES No Known Allergies PROBLEMS Active Ambulatory Problems Diagnosis Date Noted Anemia 06/29/2008 Atrophic vaginitis 10/05/2022 Essential hypertension (CMS/HCC) 10/05/2022 Fibrocystic breast changes 10/05/2022 Gastroesophageal reflux disease 10/05/2022 Hypopotassemia 04/17/2009 Obesity (BMI 30-39.9) 10/05/2022 Right bundle branch block 09/03/2007 Seasonal allergic rhinitis 10/05/2022 Sleep apnea in adult 10/05/2022 Resolved Ambulatory Problems Diagnosis Date Noted Adjustment disorder with depressed mood (CMS/HCC) 10/05/2022 Nuclear senile cataract 10/05/2022 Past Medical History: Diagnosis Date Abnormal nuclear stress test 01/18/2019 COVID-19 09/2021 Hypertension (CMS/HCC) Menorrhagia 2012 Metrorrhagia Umbilical hernia HISTORY PAST MEDICAL HISTORY SOCIAL HISTORY Past Medical History: Diagnosis Date Abnormal nuclear stress test 01/18/2019 COVID-19 09/2021 Hypertension (CMS/HCC) Menorrhagia 2012 adenomyosis Metrorrhagia Umbilical hernia Social History Tobacco Use Smoking status: Never Smokeless tobacco: Never Vaping Use Vaping status: Never Used Substance Use Topics Alcohol use: Yes Alcohol/week: 2.0 standard drinks of alcohol Types: 2 Standard drinks or equivalent per week Comment: Caffeine intake: 1-2 cups per day coffee, soda Drug use: Never FAMILY HISTORY Family History Problem Relation Name Age of Onset Uterine cancer Mother Heart disease Father Other (MVA) Son 1 son, Diabetes type I Daughter SURGICAL HISTORY Past Surgical History: Procedure Laterality Date COLONOSCOPY 10/15/2016 DILATION AND CURETTAGE 2001 Metrorrhagia DILATION AND CURETTAGE Hysterectomy HEART CATH 02/04/2019 HERNIA REPAIR 2000 HM MAMMOGRAPHY 09/28/2019 negative PAP SMEAR 04/2021 negative TOTAL ABDOMINAL HYSTERECTOMY W/ BILATERAL SALPINGOOPHORECTOMY REVIEW OF SYSTEMS Review of Systems: Review of Systems Constitutional: Negative. HENT: Negative. Eyes: Negative. Respiratory: Negative. Cardiovascular: Negative. Gastrointestinal: Negative. Genitourinary: Negative. Musculoskeletal: Negative. Skin: Negative. Neurological: Negative. All other systems reviewed and are negative. Hematological: Negative. Endocrine: Negative. Allergic/Immunologic: Negative. OBJECTIVE Objective: Physical Exam Constitutional: Appearance: Normal appearance. She is well-developed. Genitourinary: Vulva normal. Right Adnexa: not tender and no mass present. Left Adnexa: not tender and no mass present. No cervical discharge. Breasts: Breasts are soft. Right: Normal. Left: Normal. HENT: Head: Normocephalic. Nose: Nose normal. Mouth/Throat: Mouth: Mucous membranes are moist. Cardiovascular: Rate and Rhythm: Normal rate and regular rhythm. Pulmonary: Effort: Pulmonary effort is normal. Breath sounds: Normal breath sounds. Abdominal: General: Bowel sounds are normal. There is no distension. Palpations: Abdomen is soft. Tenderness: There is no abdominal tenderness. There is no guarding or rebound. Musculoskeletal: General: No swelling. Normal range of motion. Cervical back: Normal range of motion. Right lower leg: No edema. Left lower leg: No edema. Neurological: General: No focal deficit present. Mental Status: She is alert and oriented to person, place, and time. Skin: General: Skin is warm and dry. Psychiatric: Mood and Affect: Mood normal. Behavior: Behavior normal. Vitals and nursing note reviewed. Exam conducted with a internet marketing specialist present. Vitals: Estimated body mass index is 36.31 kg/m as calculated from the following: Height as of 11/23/23: 5' 6.5 . Weight as of 11/23/23: 228 lb 6.4 oz. BP: No LMP recorded. ASSESSMENT & PLAN ICD-10-CM 1. Well woman exam with routine gynecological exam Z01.419 THIN PREP TIS PAP AND HR HPV DNA 2. Breast cancer screening by mammogram Z12.31 DEXA bone density 3. Osteoporosis, post-menopausal (CMS/HCC) M81.0 Bilateral screening mammogram Bilateral screening mammogram Annual Exam: Patient presents today for an annual exam. Patient states she is doing well and has no complaints. Pap was obtained without difficulty. Orders Placed This Encounter Procedures Bilateral screening mammogram DEXA bone density Recent dexa and annual exam in September are normal Follow Up: Patient is to return in one year for annual unless needed otherwise. Documented by Susan Contreras MA on behalf of: JAMIR Jang documented in this encounter [facility] 11-23-2023 History of Presen t illness Narrative Images from the original note were not included. Subjective Patient ID: Loni Reyes is a 58 y.o. female who presents for rash. Loni is present today for evaluation of rash. Admits the rash has been there for 2 weeks and is spreading. It started on her neck and is now on her face and chest. It is red, itchy, dry. She has tried Benadryl cream and zyrtec and they are not helping. Did some yard work Thursday, but otherwise no yard work around when rash started. No changes is soaps, detergents, no new clothes. Tried cool compresses, tried moisturizing cream, both with temporary relief. Current Outpatient Medications on File Prior to Visit Medication Sig Dispense Refill aspirin (Aspirin Low Dose) 81 MG chewable tablet Chew 1 tablet 1 (one) time each day at the same time. calcium carbonate 1500 (600 Ca) MG tablet Take 1 tablet by mouth 1 (one) time each day at the same time. cetirizine (ZyrTEC ALLERGY) 10 MG tablet Take 10 mg by mouth 1 (one) time each day at the same time. Cyanocobalamin (Vitamin B12) 1000 MCG tablet controlled-release Take 1 tablet by mouth every 12 (twelve) hours. fluticasone (Flonase) 50 MCG/ACT nasal spray ADMINISTER 2 SPRAYS INTO EACH NOSTRIL EVERY DAY 15.8 mL 3 lisinopril-hydroCHLOROthiazide 20-25 MG tablet TAKE 1 TABLET BY MOUTH EVERY DAY 90 tablet 3 Multiple Vitamin (MULTIVITAMINS PO) Take 1 tablet by mouth 1 (one) time each day at the same time. omega-3 (Fish Oil) 1200 MG capsule Take 1 capsule by mouth 1 (one) time each day at the same time. omeprazole (PriLOSEC) [address] capsule TAKE 1 CAPSULE BY MOUTH EVERY DAY 90 capsule 3 potassium chloride CR (Klor-Con M10) 10 MEQ ER tablet Take 10 mEq by mouth in the morning. Do not crush or chew. . No current facility-administered medications on file prior to visit. No Known Allergies Social History Tobacco Use Smoking status: Never Smokeless tobacco: Never Vaping Use Vaping status: Never Used Substance Use Topics Alcohol use: Yes Alcohol/week: 2.0 standard drinks of alcohol Types: 2 Standard drinks or equivalent per week Comment: Caffeine intake: 1-2 cups per day coffee, soda Drug use: Never Family History Problem Relation Name Age of Onset Uterine cancer Mother Heart disease Father Other (MVA) Son 1 son, Diabetes type I Daughter Past Medical History: Diagnosis Date Abnormal nuclear stress test 01/18/2019 COVID-19 09/2021 Hypertension (CMS/HCC) Menorrhagia 2012 adenomyosis Metrorrhagia Umbilical hernia Past Surgical History: Procedure Laterality Date COLONOSCOPY 10/15/2016 DILATION AND CURETTAGE 2000 Metrorrhagia DILATION AND CURETTAGE Hysterectomy HEART CATH 02/04/2019 HERNIA REPAIR 2000 HM MAMMOGRAPHY 09/28/2019 negative PAP SMEAR 04/2021 negative TOTAL ABDOMINAL HYSTERECTOMY W/ BILATERAL SALPINGOOPHORECTOMY Visit Vitals BP 120/82 Pulse 66 Resp 16 Ht 5' 6.5 Wt 228 lb 6.4 oz SpO2 95% BMI 36.31 kg/m Smoking Status Never BSA 2.21 m Review of Systems Constitutional: Negative for chills, fatigue and fever. Respiratory: Negative for cough, shortness of breath and wheezing. Cardiovascular: Negative for chest pain, palpitations and leg swelling. Gastrointestinal: Negative for abdominal pain, constipation, diarrhea, nausea and vomiting. Skin: Positive for rash. Objective Physical Exam Constitutional: General: She is not in acute distress. Appearance: Normal appearance. She is well-developed. HENT: Head: Normocephalic and atraumatic. Eyes: General: No scleral icterus. Conjunctiva/sclera: Conjunctivae normal. Cardiovascular: Rate and Rhythm: Normal rate and regular rhythm. Heart sounds: Normal heart sounds. No murmur heard. Pulmonary: Effort: Pulmonary effort is normal. No respiratory distress. Breath sounds: Normal breath sounds. No wheezing, rhonchi or rales. Skin: General: Skin is warm and dry. Findings: Erythema and rash present. Comments: Patchy light erythema, dry along anterior and left side of neck, some parts mildly peeling. Neurological: General: No focal deficit present. Mental Status: She is alert and oriented to person, place, and time. Psychiatric: Mood and Affect: Mood normal. Behavior: Behavior normal. Assessment/Plan Diagnoses and all orders for this visit: Flexural eczema - predniSONE (Deltasone) 10 MG tablet; Take 1 tablet (10 mg) by mouth in the morning and 1 tablet (10 mg) at noon. Do all this for 5 days. Take with breakfast and with lunch. - mometasone (Elocon) 0.1 % cream; Apply topically Daily. Start the prednisone as prescribed. Advised patient to take it with food. Also advised patient of potential s/e. Do not take any other anti-inflammatories while on steroid. Can use the Mometasone cream to the area daily. Can also use quality moisturizing cream a few times a day. Follow up if no improvement over next 1-2 weeks. Follow up for Appointment As Scheduled. documented in this encounter [facility] Healthcare Evaluation note Diagnosis Flexural eczema- Primary Other atopic dermatitis and related conditions documented in this encounter [facility]* Diagnosis Well woman exam with routine gynecological exam Routine gynecological examination Breast cancer screening by mammogram Osteoporosis, post-menopausal (CMS/HCC) Senile osteoporosis documented in this encounter [facility] Diagnosis Essential hypertension (CMS/HCC)- Primary Unspecified essential hypertension Obesity (BMI 30-39.9) documented in this encounter [facility]* Diagnosis Wellness examination- Primary Sleep apnea in adult Essential hypertension Unspecified essential hypertension Right bundle branch block Gastroesophageal reflux disease without esophagitis Esophageal reflux Atrophic vaginitis Postmenopausal atrophic vaginitis Obesity (BMI 30-39.9) Anemia, unspecified type Fibrocystic breast changes, unspecified laterality Hypopotassemia Seasonal allergic rhinitis due to pollen Family history of thyroid disease Family history of other endocrine and metabolic diseases Other fatigue Abnormal weight gain documented in this encounter [facility] Diagnosis Well woman exam with routine gynecological exam Routine gynecological examination H/O: hysterectomy Acquired absence of both cervix and uterus Breast cancer screening by mammogram Osteoporosis, post-menopausal Senile osteoporosis Hemorrhoids, unspecified hemorrhoid type Vaginal itching Pruritus of genital organs documented in this encounter [facility] Healthcare Summary Purpose Family History No Family History Records FoundNo Family History Records FoundNo Family History Records FoundNo Family History Records Found Advance Directives No Advanced Directives Records FoundNo Advanced Directives Records FoundNo Advanced Directives Records FoundNo Advanced Directives Records Found Additional Source Comments INFORMATION SOURCE (unrecogn ized section and content) DATE CREATED AUTHOR 10/25/2020 Chidi Will [facility] DATE CREATED AUTHOR AUTHOR'S ORGANIZ ATION 11/11/2021 [facility] DATE CREATED AUTHOR AUTHOR'S ORGANIZ ATION 10/13/2024 [facility] EPIC DATE CREATED AUTHOR AUTHOR'S ORGANIZ ATION 10/18/2024 [facility] Diagnostic s Care Teams (unrecognized sec tion and content) Cto Relationship Specialty Start Date End Date Oralia Reeder MD [address] [facility] [address] [place] [address] PCP - General Family Medicine 10/02/22 Cto Relationship Specialty Start Date End Date Oralia Reeder MD [address] [facility] [address] [place] [address] PCP - General Family Medicine 10/02/22 Cto Relationship Specialty Start Date End Date Oralai Reeder MD [address] [facility] [address] [place] [address] PCP - General Family Medicine 10/02/22 Cto Relationship Specialty Start Date End Date Oralia Reeder MD [address] [facility] [address] [place] [address] PCP - General Family Medicine 10/02/22 Cto Relationship Specialty Start Date End Date Oralia Reeder MD [address] [facility] [address] [place] [address] PCP - General Family Medicine 10/02/22 Cto Relationship Specialty Start Date End Date Oralia Reeder MD [address] [facility] [address] [place] [address] PCP - General Family Medicine 10/02/22 Cto Relationship Specialty Start Date End Date Oralia Reeder MD [address] [facility] [address] [place] [address] PCP - General Family Medicine 10/02/22 Cto Relationship Specialty Start Date End Date Oralia Reeder MD [address] [facility] [address] [place] [address] PCP - General Family Medicine 10/02/22 Cto Relationship Specialty Start Date End Date Oralia Reeder MD [address] [facility] [address] [place] [address] PCP - General Family Medicine 10/02/22 Reason for Visit (unrecogniz ed section and content) Reason Comments Gynecologic Exam Reason Comments Wellness FOR RECORDS PERTAINING TO PATIENTS WHO ARE [...] BE BASED ON THE PRIMARY CLINICAL RECORDS. [facility] [employer] [facility] provides no warranty or guarantee of the accuracy or completeness of information in this document.
[2024-12-08 11:09] LABS: Age Gdln ACOG Testing Note (.); IGP, Aptima HPV, rfx 16/18,45 Note (.)
== END 2024-12-05 14:36 | disposition home or self-care (01) ==
LOC: LAB 14:35
PROVIDERS: PCP Family Medicine; Visit Provider Nurse Practitioner Family
DX: Z01.419 Encounter for gynecological examination (general) (routine) without abnormal findings (principal); Z90.710 Acquired absence of both cervix and uterus
CPT/HCPCS: 87624; 88175

== ENCOUNTER 2024-12-19 08:30 | Outpatient (OUT) | payer OTHER, SELFPAY ==
--- OUTSIDE RECORDS SUMMARY | 2024-12-19 08:33 | XMS_ITS | CCD ---
Author Organization [facility] Care Team Providers Care 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 Name Role Phone WEST, DR POOL Aaron Consulting Unavailable REQUEST, DR CHACKO LISTED Primary Care Unavaila ble ABBEY, DR AMAYA Admitting Unavailable ABBEY, DR AMAYA Attending Unavailable ABBEY, DR AMAYA Consulting Unavailable ABBEY, DR AMAYA Admitting Unavailable ABBEY, DR AMAYA Attending Unavailable ABBEY, DR AMAYA Consulting Unavailable REQUEST, NONE LISTED Primary Care Unavaila ble SYLVIA, YU Attending Unavailable SYLVIA, YU Consulting Unavailable SYLVIA, YU Admitting Unavailable REQUEST, NONE LISTED Primary Care Unavaila ble SYLVIA, YU Consulting Unavailable SYLVIA, YU Admitting Unavailable SYLVIA, YU Attending Unavailable REQUEST, NONE LISTED Primary Care Unavaila ble ZIEBER, DR NICO Decker Consulting Unavailable HEMMER, DR DEVIKA Davis Admitting Unavailable HEMMER, DR DEVIKA Davis Attending Unavailable HEMMER, DR DEVIKA Davis Consulting Unavailable HEMMER, DR DEVIKA Davis Consulting Unavailable MISC, DR TREVINO Primary Care Unavailable HEMMER, DR DEVIKA Davis Admitting Unavailable HEMMER, DR DEVIKA Davis Attending Unavailable SYLVIA, YU Consulting Unavailable SYLVIA, YU Admitting Unavailable SYLVIAYU DELGADILLO Attending Unavailable Oralia Reeder MD Primary Care Provider DEVIKA ESPARZA Attending Unavailable SYLVIA, YU Attending Unavailable DEVIKA ESPARZA Attending Unavailable Medications Current Medications Medication Drug Class(es) Dates Sig (Normalized) Sig (Original) aspirin 81 mg chewable tablet (17 sources) Platelet Aggregation Inhibitor, Nonsteroidal Anti-inflammatory Drug aspirin (Aspirin Low Dose) 81 MG chewable tablet Chew 1 tablet 1 (one) time each day at the same time. Active calcium carbonate 1500 mg oral tablet (17 sources) take 1 tablet by mouth once daily calcium carbonate 1500 (600 Ca) MG tablet Take 1 tablet by mouth 1 (one) time each day at the same time. Active cetirizine hydrochloride 10 mg oral tablet (17 sources) Histamine-1 Receptor Antagonist take 1 tablet by mouth once daily cetirizine (ZyrTEC ALLERGY) 10 MG tablet Take 10 mg by mouth 1 (one) time each day at the same time. Active estradiol 0.1 mg/ml vaginal cream (2 sources) Estrogen Start: 12-05-2024 estradiol (Estrace) 0.1 MG/GM vaginal cream Indications: Vaginal itching 2g vaginal daily for 2 weeks, then 2 times weekly following initial 2 weeks 42.5 g 12/05/2024 Active Fish Oils (17 sources) take 1 capsule by mouth once daily omega-3 (Fish Oil) 1200 MG capsule Take 1 capsule by mouth 1 (one) time each day at the same time. Active fluticasone propionate 0.05 mg/actuat metered dose nasal spray (17 sources) Corticosteroid Start: 08-13-2023 take 2 spray(s) nasal route once daily fluticasone (Flonase) 50 MCG/ACT nasal spray Indications: Acute frontal sinusitis, recurrence not specified ADMINISTER 2 SPRAYS INTO EACH NOSTRIL EVERY DAY 15.8 mL 3 08/13/2023 Active hydroCHLOROthiazide 25 mg / lisinopril 20 mg oral tablet (17 sources) Thiazide Diuretic, Angiotensin Converting Enzyme Inhibitor Start: 01-25-2024 take 1 tablet by mouth once daily lisinopril-hydro CHLOROthiazide 20-25 MG tablet Indications: Essential (primary) hypertension Take 1 tablet by mouth Daily 90 tablet 3 01/25/2024 Active Start: 12-25-2022 take 1 tablet by carri th once daily lisinopril-hydroCHLOROthiazide 20-25 MG tablet Indications: Essential (primary) hypertension (CMS/HCC) TAKE 1 TABLET BY MOUTH EVERY DAY 90 tablet 3 12/25/2022 Active hydrocortisone 25 mg/ml rectal cream (2 sources) Corticosteroid Start: 12-05-2024 End: 01-04-2025 hydrocortisone (Anusol-HC) 2.5 % rectal cream Indications: Hemorrhoids, unspecified hemorrhoid type Insert into the rectum 2 (two) times a day as needed for hemorrhoids 28 g 1 12/05/2024 01/04/2025 Active mometasone furoate 1 mg/ml topical cream (16 sources) Corticosteroid Start: 11-23-2023 mometasone (Elocon) 0.1 % cream Indications: Flexural eczema Apply topically Daily 15 g 2 11/23/2023 Active Multiple Vitamin (MULTIVITAMINS PO) (17 sources) take 1 tablet by mouth once daily Multiple Vitamin (MULTIVITAMINS PO) Take 1 tablet by mouth 1 (one) time each day at the same time. Active omeprazole 40 mg delayed release oral capsule (17 sources) Proton Pump Inhibitor Start: 01-20-2024 take [...] chloride 10 meq extended release oral tablet (17 sources) potassium chlori de CR (Klor-Con M10) [...] b12 1 mg extended release oral tablet (18 sources) Vitamin B12 Start: 5 End: 5 take 1 tablet by mouth once daily Cyanocobalamin (Vitamin B12) 1000 MCG tablet controlled-release Take 1 tablet by mouth Daily 10/17/2024 Active Problems Active Problems Problem Classification Problem Date Documented Date Episodic/Chronic Allergic reactions (2 sources) Flexural eczema; Translations: [Flexural eczema] 08-26-2024 Chronic Conduction disorders (19 sources) Right bundle branch block; Translations: [Unspecified right bundle-branch block] Onset: 09-03-2007 10-05-2022 Chronic Deficiency and other anemia (1 source) Anemia, unspecified; Translations: [ANEMIA UNSPECIFIED] Onset: 10-08-2021 Episodic Esophageal disorders (19 sources) Gastroesophageal reflux disease; Translations: [Gastro-esophageal reflux [...] Translations: [Other fatigue] 10-10-2024 Episodic Menopausal disorders (19 sources) Atrophic vaginitis; Translations: [Postmenopausal atrophic vaginitis] Onset: 10-05-2022 10-05-2022 Chronic Nonmalignant breast conditions (19 sources) Fibrocystic disease of breast; Translations: [Diffuse [...] Onset: 10-11-2021 Episodic Other upper respiratory disease (17 sources) Seasonal allergic rhinitis; Translations: [Other seasonal allergic rhinitis] Onset: 10-05-2022 10-05-2022 Chronic Other upper respiratory disease (2 sources) Allergic rhinitis due to pollen; Translations: [Allergic rhinitis due to pollen] 10-10-2024 Chronic Residual codes; unclassified (19 sources) Sleep apnea; Translations: [Sleep apnea, unspecified] Onset: 10-05-2022 10-05-2022 Chronic Residual codes; unclassified (4 sources) Asymptomatic menopausal state; Translations: [ASYMPTOMATIC MENOPAUSAL STATE] Onset: 11-08-2021 Episodic Residual codes; unclassified (8 sources) FH: Thyroid disorder; Translations: [Family history of other endocrine, nutritional and metabolic diseases] Onset: 10-10-2024 10-10-2024 Episodic Unclassified (3 sources) CONTACT W/AND (SUSP) EXPOS COVID-19; Translations: [CONTACT W/AND (SUSP) EXPOS COVID-19] Onset: 10-31-2021 Viral infection (1 source) COVID-19; Translations: [COVID-19] Onset: 10-24-2021 Past or Other Problems Problem Classification Problem Date Documented Da te Episodic/Chronic Adjustment disorders (17 sources) Adjustment disorder with depressed mood; Translations: [Adjustment disorder with depressed mood] Onset: 10-05-2022 Resolved: 10-06-2022 10-06-2022 Chronic Cataract (17 sources) Nuclear senile cataract; Translations: [Age-related nuclear cataract, unspecified eye] Onset: 10-05-2022 Resolved: 10-06-2022 10-06-2022 Chronic Deficiency and other anemia (19 sources) Anemia; Translations: [Anemia, unspecified] Onset: 06-29-2008 10-05-2022 Episodic Fluid and electrolyte disorders (20 sources) Hypokalemia; Translations: [Hypokalemia] Onset: 04-17-2009 10-05-2022 Episodic Unclassified (1 source) CONTACT W/AND (SUSP) EXPOS COVID-19; Translations: [CONTACT W/AND (SUSP) EXPOS COVID-19] Onset: 10-28-2021 Results Test Name Value Interpretation Reference Range Facility IGP,APTIMA HPV,AGE GDLNon AGE GDLN ACOG TESTING Note . [facility] Comment on above: TESTS RESULT FLAG UN ITS REF RANGE LAB Clinician Provided Cytology Information Source.............Vagina No. of containers..01 ThinPrep Vial Age Algo ACOG Juan... FLAG LEGEND: L-Low Normal,H-High Normal,LL-Alert Low,HH-Alert High <-Panic Low,>-Panic High,A-Abnormal,AA-Critical Abnormal Performed at: 01 =G [address] [place] [address] Deanne Blanco MD, HPV APTIMA Negative Negative [facility] Comment on above: This nucleic acid am plification test detects fourteen high- risk HPV types (16,18,31,33,35,39,45,51,52,56,58,59,66,68) without differentiation. Performed at: =[address] [id number] Tax Intern: Deanne Blanco MD, Phone: [phone] Performed at: [address] [id number] Tax Intern: Deanne Blanco MD, Phone: [phone] IGP, APTIMA HPV, RFX 16/18,45 Note . [facility] Comment on above: TESTS RESULT FLAG UN ITS REF RANGE LAB DIAGNOSIS: 02 NEGATIVE FOR INTRAEPITHELIAL LESION OR MALIGNANCY. THIS SPECIMEN WAS RESCREENED PART OF OUR FOREIGN COLLECTION CLERK PROGRAM. Specimen adequacy: 02 Satisfactory for evaluation. Performed by: 02 Sussy Soria, Friction Welding Machine Operator (ASC) QC reviewed by: 02 Aziza Jaimes, Friction Welding Machine Operator (ASC) . 02 Note: Note 02 The [...] <-Panic Low,>-Panic High,A-Abnormal,AA-Critical Abnormal Performed at: 02 [facility] [address] [place] [address] Deanne Blanco MD, SPATULA-ALONE VAGINA [facility] CBC (INCLUDES DIFF/PLT)on Basophils (Bld) [#/Vol] 0.02 10*3/uL Normal 0-200 [facility] Comment on above: Performed By: #### 1 0231, 6399 #### [place] [address] Compliance Program Manager: Sonya Junior #### 7600, 38710, 49919 #### [facility] [address], [address] [place] [address] Compliance Program Manager: Travis Khan MD Basophils/100 WBC (Bld) 0.5 % Normal [facility] Comment on above: Performed By: #### 1 0231, 6399 #### [facility] [address] [place] [address] Compliance Program Manager: Sonya Junior #### 7600, 25480, 94809 #### [facility] [address], [address] [place] [address] Compliance Program Manager: Travis Khan MD Eosinophils (Bld) [#/Vol] 0.128 10*3/uL Normal 15-500 [facility] Comment on above: Performed By: #### 1 023, 6399 #### [facility] [place] [address] Compliance Program Manager: Sonya Junior #### 7600, 80829, 50001 #### [facility] [place] [address] Compliance Program Manager: Travis Khan MD Eosinophils/100 WBC (Bld) 3.2 % Normal [facility] Comment on above: Performed By: #### 1 0231, 6399 #### [place] [address] Compliance Program Manager: Sonya Junior #### 7600, 14077, 23748 #### [facility] [place] [address] Compliance Program Manager: Travis Khan MD Erythrocyte distribution width (RBC) [Ratio] 13.2 % Normal 11.0-15.0 [facility] Comment on above: Performed By: #### 1 0231, 6399 #### [facility] [address] [place] [phone] Compliance Program Manager: Sonya Junior #### 7600, 23070, 99448 #### [facility] [address], [address] [place] [address] Compliance Program Manager: Travis Khan MD Hematocrit (Bld) [Volume fraction] 41.2 % Normal 35.0-45.0 [facility] Comment on above: Performed By: #### 1 0231, 6399 #### [facility] [address] [place] [phone] Compliance Program Manager: Sonya Junior #### 7600, 97122, 65552 #### [facility] [address], [address] [place] [address] Compliance Program Manager: Travis Khan MD Hemoglobin (Bld) [Mass/Vol] 13.6 g/dL Normal 11.7-15.5 [facility] Comment on above: Performed By: #### 1 0231, 6399 #### [facility] [address] [place] [phone] Compliance Program Manager: Sonya Junior #### 7600, 03120, 04617 #### [facility] [address], [address] [place] [address] Compliance Program Manager: Travis Khan MD Lymphocytes (Bld) [#/Vol] 1.652 10*3/uL Normal 850-3900 [facility] Comment on above: Performed By: #### 1 0231, 6399 #### [facility] [address] [place] [address] Compliance Program Manager: Sonya Junior #### 7600, 86878, 57330 #### [facility] [address], [address] [place] [phone] Compliance Program Manager: Travis Khan MD Lymphocytes/100 WBC (Bld) 41.3 % Normal [facility] Comment on above: Performed By: #### 1 0231, 6399 #### [facility] [phone] Compliance Program Manager: Sonya Junior #### 7490, 89745, 95740 #### [facility] [address], [address] [place] [address] Compliance Program Manager: Travis Khan MD MCH (RBC) [Entitic mass] 28.5 pg Normal 27.0-33.0 [facility] Comment on above: Performed By: #### 1 0231, 6399 #### [place] [address] Compliance Program Manager: Sonya Junior #### 7600, 95342, 22788 #### [facility] [address], [address] [place] [address] Compliance Program Manager: Travis Khan MD MCHC (RBC) [Mass/Vol] 33.0 [...] By: #### 1 0231, 6399 #### [place] [address] Compliance Program Manager: Sonya Junior #### 7600, 32708, 60232 #### [facility] [address], [address] [place], [place] [phone] Compliance Program Manager: Travis Khan MD MCV (RBC) [Entitic vol] 86.2 fL Normal 80.0-100.0 [facility] Comment on above: Performed By: #### 1 0231, 6399 #### [facility] [address] Compliance Program Manager: Sonya Junior #### 3790, 95895, 07383 #### [facility] [address], [address] [place] [address] Compliance Program Manager: Travis Khan MD Monocytes (Bld) [#/Vol] 0.316 10*3/uL Normal 200-950 [facility] Comment on above: Performed By: #### 1 0231, 6399 #### [facility] [address] [place] [address] Compliance Program Manager: Sonya Junior #### 7600, 14299, 26311 #### [facility] [address], [address] [place], [place] [address] Compliance Program Manager: Travis Khan MD Monocytes/100 WBC (Bld) 7.9 % Normal [facility] Comment on above: Performed By: #### 1 0231, 6399 #### [place] [address] Compliance Program Manager: Sonya Junior #### 7600, 93736, 70245 #### [facility] [address], [address] [place] [address] Compliance Program Manager: Travis Khan MD Neutrophils (Bld) [#/Vol] 1.884 10*3/uL Normal 3952-7050 [facility] Comment on above: Performed By: #### 1 0231, 6399 #### [place] [address] Compliance Program Manager: Sonya Junior #### 7600, 07655, 19128 #### [facility] [address], [address] [place] [address] Compliance Program Manager: Travis Khan MD Neutrophils/100 WBC (Bld) 47.1 % Normal [facility] Comment on above: Performed By: #### 1 0231, 6399 #### [facility] [address] [place] [address] Compliance Program Manager: Sonya Junior #### 7600, 13132, 24760 #### [facility] [address], [address] [place] [phone] Compliance Program Manager: Travis Khan MD Platelet mean volume (Bld) [Entitic vol] 8.9 fL Normal 7.5-12.5 [facility] Comment on above: Performed By: #### 1 0231, 6399 #### [place] [address] Compliance Program Manager: Sonya Junior #### 7600, 02791, 43461 #### [facility] [address], [address] [place] [address] Compliance Program Manager: Travis Khan MD Platelets (Bld) [#/Vol] 274 10*3/uL Normal 140-400 [facility] Comment on above: Performed By: #### 1 0231, 6399 #### [place] [address] Compliance Program Manager: Sonya Junior #### 7600, 74512, 56936 #### [facility] [place] [address] , [address] [place] [address] Compliance Program Manager: Travis Khan MD RBC (Bld) [#/Vol] 4.78 10*6/uL Normal 3.80-5.10 [facility] Comment on above: Performed By: #### 1 0231, 6399 #### [place] [address] Compliance Program Manager: Sonya Junior #### 7600, 71561, 57429 #### [facility] [address] , [address] [place] [address] Compliance Program Manager: Travis Khan MD WBC (Bld) [#/Vol] 4.0 10*3/uL Normal 3.8-10.8 [facility] Comment on above: Performed By: #### 1 0231, 6399 #### [place] [address] Compliance Program Manager: Sonya Junior #### 7600, 35471, 39596 #### [facility] [address], [address] [place] [address] Compliance Program Manager: Travis Khan MD COMPREHENSIVE METABOLIC PANE [facility] 10-15-2024 Albumin [Mass/Vol] 4.2 g/dL Normal 3.6-5.1 [facility] Comment on above: Performed By: #### 1 0231, 6399 #### [facility] [address] Compliance Program Manager: Sonya Junior #### 7600, 61932, 76259 #### [facility] [address], [address] [place], [place] [phone] Compliance Program Manager: Travis Khan MD Albumin/Globulin [Mass ratio] 1.8 {ratio} Normal 1.0-2.5 [facility] Comment on above: Performed By: #### 1 0231, 1099 #### [place] [address] Compliance Program Manager: Sonya Junior #### 7600, 80794, 70511 #### [facility] [address], [address] [place], [place] [phone] Compliance Program Manager: Travis Khan MD ALP [Catalytic activity/Vol] 82 U/L Normal 37-153 [facility] Comment on above: Performed By: #### 1 0231, 6399 #### [facility] [place] [address] Compliance Program Manager: Sonya Junior #### 7600, 04056, 87034 #### [facility] [address], [address] [place], [place] [phone] Compliance Program Manager: Travis Khan MD ALT [Catalytic activity/Vol] 32 U/L High 6-29 [facility] Comment on above: Performed By: #### 1 0231, 6399 #### [facility] [address] [place] [address] Compliance Program Manager: Sonya Junior #### 7600, 37499, 65782 #### [facility] [address], [address] [place] [address] Compliance Program Manager: Travis Khan MD AST [Catalytic activity/Vol] 21 U/L Normal 10-35 [facility] Comment on above: Performed By: #### 1 0231, 6399 #### [facility] [address] [place] [address] Compliance Program Manager: Sonya Junior #### 7600, 98649, 35516 #### [facility] [address], [address] [place] [address] Compliance Program Manager: Travis Khan MD Bilirubin [Mass/Vol] 0.8 mg/dL Normal 0.2-1.2 [facility] Comment on above: Performed By: #### 1 0231, 6399 #### [facility]-[address] [address] Compliance Program Manager: Sonya Junior #### 7600, 24908, 61506 #### [facility] [address], [address] [place] [address] Compliance Program Manager: Travis Khan MD BUN/CREATININE RATIO SEE NOTE: Normal 6-22 [facility] Comment on above: Result Comment: Not Reported: BUN and Creatinine are within reference range. Performed By: #### 1 0231, 6399 #### [facility]-[address] [address] Compliance Program Manager: Sonya Junior #### 7600, 13116, 58826 #### [facility] [address], [address] [place], [place] [address] Compliance Program Manager: Travis Khan MD Calcium [Mass/Vol] 8.7 mg/dL Normal 8.6-10.4 [facility] Comment on above: Performed By: #### 1 0231, 6399 #### [facility] [address] [place] [address] Compliance Program Manager: Sonya Junior #### 7600, 08413, 26643 #### [facility] [address], [address] [place] [phone] Compliance Program Manager: Travis Khan MD Chloride [Moles/Vol] 105 mmol/L Normal 98-110 [facility] Comment on above: Performed By: #### 1 0231, 6399 #### [facility] [address] Compliance Program Manager: Sonya Junior #### 7600, 52167, 99234 #### [facility] [address], [address] [place] [address] Compliance Program Manager: Travis Khan MD CO2 [Moles/Vol] 30 mmol/L Normal 20-32 [facility] Comment on above: Performed By: #### 1 0231, 6399 #### [facility] [address] Compliance Program Manager: Sonya Junior #### 7600, 61971, 22226 #### [facility] [address], [address] [place], [place] [address] Compliance Program Manager: Travis Khan MD Creatinine [Mass/Vol] 0.62 mg/dL Normal 0.50-1.03 [facility] Comment on above: Performed By: #### 1 0231, 6399 #### [facility] [address] Compliance Program Manager: Sonya Junior #### 7600, 09112, 03135 #### [facility] [address], [address] [place], [place] [address] Compliance Program Manager: Travis Khan MD GFR/1.73 sq M.predicted among non-blacks MDRD (S/P/Bld) [Vol rate/Area] 103 mL/min/{1.73_m2} Normal > OR = 60 [facility] Comment on above: Performed By: #### 1 0231, 6399 #### [facility] [address] [place] [phone] Compliance Program Manager: Sonya Junior #### 7600, 65544, 60750 #### [facility] [address], [address] [place] [phone] Compliance Program Manager: Travis Khan MD Globulin (S) [Mass/Vol] 2.4 g/dL Normal 1.9-3.7 [facility] Comment on above: Performed By: #### 1 0231, 6399 #### [facility]-[address] [address] Compliance Program Manager: Sonya Junior #### 7600, 00754, 07007 #### [facility] [address], [address] [place] [address] Compliance Program Manager: Travis Khan MD Glucose [Mass/Vol] 94 mg/dL Normal 65-99 [facility] Comment on above: Result Comment: Fasting reference interval Performed By: #### 1 0231, 6399 #### [facility] [phone] Compliance Program Manager: Sonya Junior #### 7600, 95847, 80661 #### [facility] [address], [address] [place], [place] [phone] Compliance Program Manager: Travis Khan MD Potassium [Moles/Vol] 3.9 mmol/L Normal 3.5-5.3 [facility] Comment on above: Performed By: #### 1 0231, 6399 #### [facility] [address] Compliance Program Manager: Sonya Junior #### 7600, 92037, 79313 #### [facility] [address], [address] [place] [address] Compliance Program Manager: Travis Khan MD Protein [Mass/Vol] 6.6 g/dL Normal 6.1-8.1 [facility] Comment on above: Performed By: #### 1 0231, 6399 #### [facility] [address] Compliance Program Manager: Sonya Junior #### 7600, 48453, 83096 #### [facility] [address], [address] [place], [place] [address] Compliance Program Manager: Travis Khan MD Sodium [Moles/Vol] 142 mmol/L Normal 135-146 [facility] Comment on above: Performed By: #### 1 0231, 6399 #### [facility] [address] [place] [address] Compliance Program Manager: Sonya Junior #### 7600, 99331, 10423 #### [facility] [address] [facility], [address] [place] [address] Compliance Program Manager: Travis Khan MD Urea nitrogen [Mass/Vol] 21 mg/dL Normal 7-25 [facility] Comment on above: Performed By: #### 1 0231, 6399 #### [facility] [address] [place] [phone] Compliance Program Manager: Sonya Junior #### 7600, 60276, 87126 #### [facility] [address], [address] [place], [place] [address] Compliance Program Manager: Travis Khan MD LIPID PANEL, [facility] 09-27 Cholesterol [Mass/Vol] 221 mg/dL High <200 [facility] Comment on above: Order Comment: FASTI NG:YES FASTING: YES Performed By: #### 1 0231, 6399 #### [facility] [address] [place] [address] Compliance Program Manager: Sonya Junior #### 7600, 65163, 42448 #### [facility] [address], [address] [place], [place] [address] Compliance Program Manager: Travis Khan MD Cholesterol in HDL [Mass/Vol] 54 mg/dL Normal > OR = 50 [facility] Comment on above: Order Comment: FASTI NG:YES FASTING: YES Performed By: #### 1 0231, 6399 #### [facility] [address] [place] [phone] Compliance Program Manager: Sonya Junior #### 7600, [id number], [id number] #### [facility] [address], [address] [place] [phone] Compliance Program Manager: Travis Khan MD Cholesterol in LDL [Mass/Vol] [...] equation in the estimation of LDL-C. Freddy SCHNEIDER et al. HU. 2013;310(19): 2485-6036 (http://education.Nayatek/faq/IHM133) Performed By: #### 1 0231, 6399 #### [facility] [address] [place] [address] Compliance Program Manager: Sonya Junior #### 7600, [phone], [phone] #### [facility] [address], [address] [place] [address] Compliance Program Manager: Travis Khan MD Cholesterol.total /Cholesterol in HDL [Mass ratio] 4.1 {ratio} Normal <5.0 [facility] Comment on above: Order Comment: FASTI NG:YES FASTING: YES Performed By: #### 1 0231, 6399 #### [facility] [address] [place] [address] Compliance Program Manager: Sonya Junior #### 7600, 12548, 85525 #### [facility] [address], [address] [place] [address] Compliance Program Manager: Travis Khan MD NON HDL CHOLESTEROL 167 mg/dL (calc) High <130 [facility] Comment on above: Order Comment: FASTI NG:YES FASTING: YES Result Comment: For patients with diabetes plus 1 major ASCVD risk factor, treating to a non-HDL-C goal of <100 mg/dL (LDL-C of <70 mg/dL) is considered a therapeutic option. Performed By: #### 1 0231, 6399 #### [facility] [address] [place], [place] [id number] Compliance Program Manager: Sonya Junior #### 7600, 79574, 67943 #### [facility] [address], [address] [place], [place] [id number] Compliance Program Manager: Travis Khan MD Triglyceride [Mass/Vol] 96 mg/dL Normal <150 [facility] Comment on above: Order Comment: FASTI NG:YES FASTING: YES Performed By: #### 1 0231, 6399 #### [facility] [address] Compliance Program Manager: Sonya Junior #### 7600, 84608, [id number] #### [facility] [address], [address] [place] [address] Compliance Program Manager: Travis Khan MD TSH W/REFLEX TO FT4on 2024 TSH W/REFLEX TO FT4 1.15 mIU/L Normal 0.40-4.50 [facility] Comment on above: Performed By: #### 1 0231, 6399 #### [facility] [address] [place] [address] Compliance Program Manager: Sonya Junior #### 7600, 99834, 79215 #### [facility] [address], [address] [place] [address] Compliance Program Manager: Travis Khan MD VITAMIN B12on 10-15-2024 Cobalamin (Vitamin B12) [Mass/Vol] pg/mL High 200-1100 [facility] Comment on above: Performed By: #### 1 0231, 6399 #### [facility] [address] [place] [address] Compliance Program Manager: Sonya Junior #### 7600, 72555, 98881 #### [facility] [address], [address] [place] [address] Compliance Program Manager: Travis Khan MD VITAMIN D,25-OH,TOTAL,IAon 0 10-15-2024 [...] D, (D2,D3), LC/MS/MS is recommended: order code 01324 (patients >2yrs). See Note 1 Note 1 For additional information, please refer to http://education.Nayatek/faq/FJV362 (This link is being provided for informational/ educational purposes only.) Performed By: #### 1 0231, 6399 #### [facility] [address] [place] [address] Compliance Program Manager: Sonya Junior #### 7600, 52953, 62382 #### [facility] [address] [facility], [address] [place] [address] Compliance Program Manager: Travis Khan MD IGP,APTIMA HPV,AGE GDLNon AGE GDLN ACOG TESTING Note . [facility] Comment on above: TESTS RESULT FLAG UN ITS REF RANGE LAB Clinician Provided Cytology Information Source.............Vagina No. of containers..01 ThinPrep Vial Age Algo ACOG Juan... FLAG LEGEND: L-Low Normal,H-High Normal,LL-Alert Low,HH-Alert High <-Panic Low,>-Panic High,A-Abnormal,AA-Critical Abnormal Performed at: 01 =[address] [place] [address] Deanne Blanco MD, HPV APTIMA Negative Negative [facility] Comment on above: This nucleic acid am plification test detects fourteen high- risk HPV types (16,18,31,33,35,39,45,51,52,56,58,59,66,68) without differentiation. Performed at: =[address] [id number] Tax Intern: Deanne Blanco MD, Phone: [phone] Performed at: [address] [id number] Tax Intern: Deanne Blanco MD, Phone: [phone] IGP, APTIMA HPV, RFX 16/18,45 Note . [facility] Comment on above: TESTS RESULT FLAG UN ITS REF RANGE LAB DIAGNOSIS: 02 NEGATIVE FOR INTRAEPITHELIAL LESION OR MALIGNANCY. THIS SPECIMEN WAS RESCREENED PART OF OUR FOREIGN COLLECTION CLERK PROGRAM. Specimen adequacy: 02 Satisfactory for evaluation. Performed by: 02 Genoveva New, Gre Instructor (ASC) QC reviewed by: 02 Tabitha Pressley, Gre Instructor (ASCP) . 02 Note: Note 02 The Pap [...] <-Panic Low,>-Panic High,A-Abnormal,AA-Critical Abnormal Performed at: [address] [address] Deanne Blanco MD, [facility] Cervical or vaginal smear or scraping studyon 11-24-2022 [facility] XR DEXA BONE DENSITYon 11-08 XR DEXA [...] density. Low fracture risk Electronically authenticated by: OPOL SORIA Date: 2021-11-08 17:21 [facility] PAP ACOG PANEL 2: 30 to 65on 10-31-2021 . . Normal [facility] Comment on above: Result Comment: Perf ormed at: WB Performed By: #### 4 [id number] #### [facility] [address] [place] [address] Dr. Alejandro Daniels Age Gdln ACOG Testing 30-[address] [facility] Comment on above: Performed By: #### 4 [id number] #### [facility] [address] [place] [address] Dr. Alejandro Daniels DIAGNOSIS: Comment Normal [facility] Comment on above: Result Comment: NEGA TIVE FOR INTRAEPITHELIAL LESION OR MALIGNANCY. Performed at: WB Performed By: #### 4 [id number] #### [facility] [address] [place] [address] Dr. Alejandro Daniels HPV Aptima Negative Normal Negative [facility] Comment on above: Result Comment: This nucleic acid amplification test detects fourteen high-risk HPV types (16,18,31,33,35,39,45,51,52,56,58,59,66,68) without differentiation. Performed at: =G Performed By: #### 4 [id number] #### [facility] [address] [place] [address] Dr. Alejandro Daniels Methodology: Comment Normal [facility] Comment on above: Result Comment: This liquid based ThinPrep(R) pap test was screened with the use of an image guided system. Performed at: WB Performed By: #### 4 [id number] #### [facility] [address] [place] [address] Dr. Alejandro Daniels Note: Comment Normal [facility] Comment on above: Result Comment: The Pap smear is a screening test designed to aid in the detection of premalignant and malignant conditions of the uterine cervix. It is not a diagnostic procedure and should not be used as the sole means of detecting cervical cancer. Both false-positive and false-negative reports do occur. . Performed at: WB Performed By: #### 4 [id number] #### [facility] [address] [place] [address] Dr. Alejandro Daniels Performed by: Comment Normal [facility] Comment on above: Result Comment: Aurora Quinones Gre Instructor (ASCP) Performed at: WB Performed By: #### 4 [id number] #### [facility] [address] [place] [address] Dr. Alejandro Daniels Specimen adequacy: Comment Normal [facility] Comment on above: Result Comment: Sati sfactory for evaluation. Endocervical and/or squamous metaplastic cells (endocervical component) are present. Performed at: WB Performed By: #### 4 [id number] #### [facility] [address] [place] [address] Dr. Alejandro Daniels ASYMPTOMATIC COVID-19 ANTIGE Non 10-28-2021 EUA Statement SEE BELOW Normal [facility] Comment on above: Result Comment: This test [...] C VDAGA #### [facility] [address] [place] [address] Dr. Alejandro Daniels SARS-CoV-2 (COVID-19) RNA HILARY+probe Ql (Unsp spec) Negative Normal NEGATIVE [facility] Comment on above: Result Comment: Nega tive results are presumptive. They do not preclude infection and should not be used as the sole basis for treatment decisions. Additional confirmatory testing by a molecular method should be considered. Performed By: #### C VDAGA #### [facility] [address] [place] [address] Dr. Alejandro Daniels Covid-19 PCR (CVDTB)on 09-28 SARS-CoV-2 (COVID-19) RNA HILARY+probe Ql (Unsp [...] for this test is supported by the [employer] of [employer] and Human Service's declaration that [...] longer be used). Performed By: #### C VDTBH #### [facility] [address] [address] [address] Alejandro Daniels MG MAMM SCREEN 3D HAYDEN CADon 10-11-2021 MG MAMM SCREEN 3D HAYDEN CAD Patient: DANIELLE REYES Exam Date: 10/11/2021 : 1965 Gender:F Ordering : DR DEVIKA ESPARZA PA Admission #: [id number] Family : DR MONIQUE ZAVALA . Order #: [id number] CLICK HERE TO VIEW EXAM RADIOLOGY REPORT [...] 10-04-2021 BASO # 0.0 103/ul Normal 0.0-0.1 [facility] Comment on above: Performed By: #### C BC #### [facility] [address] [address] [address] Alejandro Daniels Basophils/100 WBC (Bld) 0.9 % Normal 0.2-2.[address] [facility] Comment on above: Performed By: #### C BC #### [facility] [address] [place] [address] Dr. Alejandro Daniels EO # 0.3 103/ul Normal 0.0-0.7 [facility] Comment on above: Performed By: #### C BC #### [facility] [address] [place] [address] Dr. Alejandro Daniels Eosinophils/100 WBC (Bld) 7.3 % Critically high 0.9-7.[address] [facility] Comment on above: Performed By: #### C BC #### [facility] [address] [place] [address] Dr. Alejandro Daniels Erythrocyte distribution width (RBC) [Ratio] 11.8 % Normal 11.0-15.[address] [facility] Comment on above: Performed By: #### C BC #### [facility] [address] [place] [address] Dr. Alejandro Daniels Hematocrit (Bld) [Volume fraction] 40.8 % Normal 36.0-48.[address] [facility] Comment on above: Performed By: #### C BC #### [facility] [address] [place] [address] Dr. Alejandro Daniels Hemoglobin (Bld) [Mass/Vol] 13.6 g/dL Normal 12.0-16.[address] [facility] Comment on above: Performed By: #### C BC #### [facility] [address] [place] [address] Dr. Alejandro Daniels IG # 0.01 10e3/ul Normal 0.00-0.[address] [facility] Comment on above: Performed By: #### C BC #### [facility] [address] [place] [address] Dr. Alejandro Daniels IG % 0.2 % Normal 0.0-0.[address] [facility] Comment on above: Performed By: #### C BC #### [facility] [address] [place] [address] Dr. Alejandro Daniels LYMPH # 1.6 103/ul Normal 1.2-3.[address] [facility] Comment on above: Performed By: #### C BC #### [facility] [address] [place] [address] Dr. Alejandro Daniels Lymphocytes/100 WBC (Bld) 35.8 % Normal 20.5-60.[address] [facility] Comment on above: Performed By: #### C BC #### [facility] [address] [place] [address] Dr. Alejandro Daniels MANUAL DIFF REQ NO Normal [facility] Comment on above: Performed By: #### C BC #### [facility] [address] [place] [address] Dr. Alejandro Daniels MCH (RBC) [Entitic mass] 28.9 pg Normal 26.7-34.[address] [facility] Comment on above: Performed By: #### C BC #### [facility] [address] [place] [address] Dr. Alejandro Daniels MCHC (RBC) [Mass/Vol] 33.3 g/dL Normal 29.9-35.[address] [facility] Comment on above: Performed By: #### C BC #### [facility] [address] [place] [address] Dr. Alejandro Daniels MCV (RBC) [Entitic vol] 86.6 fL Normal 81.0-99.[address] [facility] Comment on above: Performed By: #### C BC #### [facility] [address] [place] [address] Dr. Alejandro Daniels MONO # 0.4 103/ul Normal 0.3-0.[address] [facility] Comment on above: Performed By: #### C BC #### [facility] [address] [place] [address] Dr. Alejandro Daniels Monocytes/100 WBC (Bld) 8.2 % Normal 1.7-12.[address] [facility] Comment on above: Performed By: #### C BC #### [facility] [address] [place] [address] Dr. Alejandro Daniels NEUT # 2.1 103/ul Normal 1.4-6.[address] [facility] Comment on above: Performed By: #### C BC #### [facility] [address] [place] [address] Dr. Alejandro Daniels Neutrophils/100 WBC (Bld) 47.6 % Normal 43.0-75.[address] [facility] Comment on above: Performed By: #### C BC #### [facility] [address] [place] [address] Dr. Alejandro Daniels Platelet mean volume (Bld) [Entitic vol] 9.1 fL Critically low 9.5-13.[address] [facility] Comment on above: Performed By: #### C BC #### [facility] [address] [place] [address] Dr. Alejandro Daniels PLT 241 103/ul Normal 150-450 [facility] Comment on above: Performed By: #### C BC #### [facility] [address] [place] [address] Dr. Alejandro Daniels RBC 4.71 106/ul Normal 4.20-5.40 [facility] Comment on above: Performed By: #### C BC #### [facility] [address] [place] [address] Dr. Alejandro Daniels WBC 4.4 103/ul Normal 4.0-11.0 [facility] Comment on above: Performed By: #### C BC #### [facility] [address] [place] [address] Dr. Alejandro Daniels LIPID PROFILEon 10-04-2021 CHOL-HDL RATIO NORM SEE BELOW Normal [facility] Comment on above: Result Comment: 3.3 - 4.4 LOW RISK 4.4 - 7.1 AVERAGE RISK 7.1 - 11.0 MODERATE RISK >11.0 HIGH RISK Performed By: #### C MP, LIPID #### [facility] [address] [place] [address] Dr. Alejandro Daniels Cholesterol [Mass/Vol] 210 mg/dL Critically high <=200 [facility] Comment on above: Performed By: #### C MP, LIPID #### [facility] [address] [place] [address] Dr. Alejandro Daniels Cholesterol in HDL [Mass/Vol] 61 mg/dL Critically high 40-[address] [facility] Comment on above: Performed By: #### C MP, LIPID #### [facility] [address] [address] [address] Alejandro Daniels Cholesterol in LDL [Mass/Vol] 140.8 mg/dL Normal [facility] Comment on above: Performed By: #### C MP, LIPID #### [facility] [address] [address] [address] Alejandro Daniels Cholesterol.total /Cholesterol in HDL [Mass ratio] 3.4 {ratio} Normal [facility] Comment on above: Performed By: #### C MP, LIPID #### [facility] [address] [address] [address] Alejandro Daniels HDL NORMAL > or = 60 mg/dl - LO W CARDIOVASCULAR RISK <40 mg/dl - HIGH CARDIOVASCULAR RISK Normal [facility] Comment on above: Performed By: #### C MP, LIPID #### [facility] [address] [place] [address] Dr. Alejandro Daniels LDL CALC NORMAL SEE BELOW Normal [facility] Comment on above: Result Comment: <100 mg/dl OPTIMAL 100 - 129 mg/dl NEAR OR ABOVE OPTIMAL 130 - 159 mg/dl BORDERLINE HIGH 160 - 189 mg/dl HIGH >190 mg/dl VERY HIGH Performed By: #### C MP, LIPID #### [facility] [address] [address] [address] Alejandro Daniels Triglyceride [Mass/Vol] 41 mg/dL Normal <=150 [facility] Comment on above: Performed By: #### C MP, LIPID #### [facility] [address] [address] [address] Alejandro Daniels VLDL CALC 8.2 mg/dL Normal [facility] Comment on above: Performed By: #### C MP, LIPID #### [facility] [address] [address] [address] Alejandro Daniels PROF 14(COMP METB)on 022 Albumin [Mass/Vol] 3.7 g/dL Normal 3.4-5.[address] [facility] Comment on above: Performed By: #### C MP, LIPID #### [facility] [address] [address] [address] Alejandro Daniels Albumin/Globulin [Mass ratio] 1.1 {ratio} Normal [facility] Comment on above: Performed By: #### C MP, LIPID #### [facility] [address] [address] [address] Alejandro Daniels ALP [Catalytic activity/Vol] 82 U/L Normal 46-116 [facility] Comment on above: Performed By: #### C MP, LIPID #### [facility] [address] [address] [address] Alejandro Daniels ALT [Catalytic activity/Vol] 42 U/L Normal 14-[address] [facility] Comment on above: Performed By: #### C MP, LIPID #### [facility] [address] [address] [address] Alejandro Daniels Anion gap [Moles/Vol] 9.9 mmol/L Normal [facility] Comment on above: Performed By: #### C MP, LIPID #### [facility] [address] [address] [address] Alejandro Daniels AST [Catalytic activity/Vol] 16 U/L Normal 15-[address] [facility] Comment on above: Performed By: #### C MP, LIPID #### [facility] [address] [address] [address] Alejandro Daniels Bilirubin [Mass/Vol] 0.8 mg/dL Normal 0.2-1.0 [facility] Comment on above: Performed By: #### C MP, LIPID #### [facility] [address] [address] [address] Alejandro Daniels Calcium [Mass/Vol] 8.8 mg/dL Normal 8.5-10.1 [facility] Comment on above: Performed By: #### C MP, LIPID #### [facility] [address] [address] [address] Alejandro Daniels Chloride [Moles/Vol] 107 mmol/L Normal 98-107 [facility] Comment on above: Performed By: #### C MP, LIPID #### [facility] [address] [address] [address] Alejandro Daniels CO2 [Moles/Vol] 29.6 mmol/L Normal 21.0-32.0 [facility] Comment on above: Performed By: #### C MP, LIPID #### [facility] [address] [place] [address] Dr. Alejandro Daniels Creatinine [Mass/Vol] 0.69 mg/dL Normal 0.55-1.02 [facility] Comment on above: Performed By: #### C MP, LIPID #### [facility] [address] [address] [address] Alejandro Daniels EGFR-AF GUINEAN >60 Normal >=60 [facility] Comment on above: Performed By: #### C MP, LIPID #### [facility] [address] [place] [address] Dr. Alejandro Daniels EGFR-NON AF GUINEAN >60 Normal >=60 [facility] Comment on above: Performed By: #### C MP, LIPID #### [facility] [address] [place] [address] Dr. Alejandro Daniels Globulin (S) [Mass/Vol] 3.5 g/dL Normal [facility] Comment on above: Performed By: #### C MP, LIPID #### [facility] [address] [place] [address] Dr. Alejandro Daniels Glucose [Mass/Vol] 100 mg/dL Normal 74-106 [facility] Comment on above: Performed By: #### C MP, LIPID #### [facility] [address] [address] [address] Alejandro Daniels Potassium [Moles/Vol] 3.5 mmol/L Normal 3.5-5.1 [facility] Comment on above: Performed By: #### C MP, LIPID #### [facility] [address] [place] [address] Dr. Alejandro Daniels Protein [Mass/Vol] 7.2 g/dL Normal 6.4-8.2 [facility] Comment on above: Performed By: #### C MP, LIPID #### [facility] [address] [address] [address] Alejandro Daniels Sodium [Moles/Vol] 143 mmol/L Normal 136-145 [facility] Comment on above: Performed By: #### C MP, LIPID #### [facility] [address] [place] [address] Dr. Alejandro Daniels Urea nitrogen [Mass/Vol] 21.0 mg/dL Critically high 7.0-18.[address] [facility] Comment on above: Performed By: #### C MP, LIPID #### [facility] [address] [address] [address] Alejandro Daniels Urea nitrogen/Creatini ne [Mass ratio] 30.4 mg/mg Normal [facility] Comment on above: Performed By: #### C MP, LIPID #### [facility] [address] [place] [address] Dr. Alejandro Daniels Covid-19 PCR ([facility])on SARS-CoV-2 (COVID-19) RNA IHLARY+probe Ql (Unsp spec) Not detected Normal NOT [...] for this test is supported by the [place] of Health and Human Service's declaration that [...] longer be used). Performed By: #### C VDTBH #### [facility] [address] [place] [address] Dr. Alejandro Daniels Coding Summary.on 10-24-2020 Coding Summary. CD:[id number] Gh0 bWw+PGhlYWQ+KK8HNPUtB78 qpYXcaC5DR3kREH2VHNAMWC ADTX5ORC5hnES8CSlhT3Sho iAv GstxhPAkFC68NHd7ZEU9zXn fDOlibM3wrUAgL4i7FgStKK 32yA65EYknSHNhEmD5VbMcq jsgbWFy J8vpWfUmsJEvBnn+PHRhYmx lIHdpZHRoPScxMDAlJyBzdH giMF2qCu9wYSCrYBDkwWyrl HNlOiBj v2jkHVDgSJwkPV7xwDmhZ5Z zcWS5FSLpq4h1Gp39gPI+PH XdMWL3gXmyBLrgl169WfNug 0tlCJF2 oAWwWUhzZTF1L28kz8W8JFX lYNVlCTS2dQV9tD7wnIwalu blF7UdbOGlMlW5TCT1gOYds M5coBbd wbgzgS7hReb+O24SJE9IQMO RXK1MKfm3H0DhPnkrpTM+PC 70NEOmOE82rVYgxWGwv6wcb Xa0OtGu UVUmBBP9qKgyXWrqo2XyFUT zD89lcRQpn7C8AZPvlUdpvF IcFlTdoYW2sI2cJPnemcpsw 2hvdzsn Yitfy1dzsm04rS81J60vFNe uJSZbBMT0TOAtLMFaeZnnge 1juW2rHd5+VIxqx0uml2bhu Na4MeBc BBAxaeGvmJijKIG8u1HcYy6 1L0YpnVqpm4EmCnc8ir76gH Fth6L9kCB0LIthMZYtiC4mY WxlZnQ6 RGTaUmEwyT53aWThPXdcTg4 goHibgIgcFW0vEKJkrwdtLF UraR7rDQLryJCukApbXO8vO TBpbjtm e372EiJrGWS7QMFbhWNuS2D qtJ0zNqFiEOLyICSdR2NnpI RbOBvaZ501JMamAxB3NRLvj uIgA2Oq DDFblGeyLxL6k9M3Tr5Tk5C exxleYLS5IKunICD7YcW2Lh AzMeP8K0EtLsv5DKBctKvyP E0rN3Zh IRZmlqykljalwEL6LYMxJLE moS27eNKqTSryWu4kx7U5v6 48UDZhONFzdH88Cs3cqNmoI TBwdCBU fL8ydkipl1tkpfxlOqUdEPO iZHx3VQx6FIAdsZrgQcRcIM Z8CpY3CCR2bZWfsC4fzAonn jwtuJ6h Oyc+O53gtU9gOUX6EXI1bhs uITWsniEyKQ99ZQ00N5CjPh wvdGFibGU+PGRpdiBzdHlsZ N2aGcBo a9wso1SiGFleP7UySBTuORx eJiv4ERInXQH1wSL9hO0lYF CxCXucc1C3yPD5A7XsiqQdt u2kg4lb KEIkODyaY16qyQQpy2H3GDM iqWE9PHDozPhoAcAjhH58Cg c+FFOysIrxn4KiFziid4glw 0vrfBz5 DyHrVHSatkFdrXcgIZY3l1N zRc28H45mNFxaCFQoYVVhSF NsRJHtlIjunk5frT6sKu7+P GNvbCB3 sIF6xO4bUCXjMdH3ZWrcZ32 2VnQrlBAzCwtbo3gcb6uluR h7KmEsYUCjyeEboPxkVZN2w 5PwXk64 O36jTWehSUMoWFYzJWCkXXS exNuehj4yrB4hLv1+PC9jb2 fskv83wQ50mYF+URZvNVF8o WxlPSdw FGUlmD6xFCfvAaY1IUJtNyT fgS66zBUwEHgoDq8loVuqsB ftVV3cKTGhgaalw346JhCno 2xkIDEw sOXbFUzxDHQ1N04mx9O6JUX hBMBbUMQ1pGB1sT4etXpvuc ogbGVmdDsgdmVydGljYWwtY TdeR814 IHRvcDsnPlBhdGllbnQgTmF jSUd3M6YoCob7HDAyoGfnTC 3ouPLgYEsyXk3wdPuauGwoV N2vGJYj ffmrb348HxWpw6rkLJVkeSY mSGiuGUT7J73gh1E7FEJqXN SpDUF5aVR3eS8bbZqbpzdje GVmdDsg cyEgmBndHPbtWZhkP060ZQH qgFyqXtKuvkBbLUCweVB2GH 69ZX40uAEqv0P4fCO5T4FuY GRpbmct hnzfhPX9KXBgHEKeqA76Iu4 hbKsgEy0mWVArLGI7BRDeiL ZmE2HbuV9fSvKcPWQgOKYzD 3RleHQt TWcnC678IQqwOjZ5BMIhkgK lE4IbCSBzfCiqKoV2c3Q1Rn 3NP2T1ZQ62XN92tGLey2X1x JM0G3Fk KPBhgucxgpssuIH8CODvLDX ceV39Kh3hjRgtAi8wTEUqTS A2QLXqhZSiA6NwmK2dWhSqH DAwMDAw A8TewOVkXRahU424HLirXtA 6DRGctiEbF8GsZZAcaZyzVe W6x7O7Rt7VMIa7FR08RL01b EMzn4X5 oUE0V4RmUYLwuexiisopmAB 2MWTaPMOewM55La5hbMfhZw 0pYBXeYFP0EJGrmDHtU9Nwo E8tWoXk IANiCEAqR7QyvBWvUAepF30 0QTyrUsJ8AGApkxOyV5JkAL MyaOtmMwJ2f5E5Kw5BBROcK I20CFB4 lCD3JS59FS31D3ZcTadcsPL ibGU+PHRhYmxlIHdpZHRoPS mcGJFfGuTyxYrgKS4qTr6aI GVyLWNv lXrmbXEfYoRdj6lbHCXcGRf uVA6zmCpxX5JfzGA2DQSnr1 m7Hy84B51gG1WtwQB+PGNvb ER6qKP5 iJ7oYaXuFhW2LTssM400JzR orLUjIgzyn4taw1cmaDi7Si B8BDJrugPuaMhhEIB0f0AiF v37J04k IHdpZHRoPSIxNSUiIHZhbGl stc6cxB4vVt8+YPYheQV9lW T5lR7sVhGiSeE0TCitO768L nRvcCIv Zohwi6jgz5uibMu6WxBmGZD jlvOvsIggIGC4l1GiZx52Y2 FhgRguj6DtQgn5rz89qKNfi 5B4sEN1 Z3SdWTXhdnzaqRLszYrfBP0 mXHXknuccLXUsdH0bDJKoF5 l0RvOgTaW8YGfmR3BrlqP6O DEwcHQg KJzcXOR7X41iu8T2XHZlEAZ hIKV5qHL8gN7zzBbtrrvwyJ VmdDsgdmVydGljYWwtYWxpZ 246IHRv wKypXLYeaU4cJMZseAXmfVu uGI8aTEGfolzxBvaVMLbOEy MKOrmwETbVCmMYLQCGDSg5A 9GiBov4 ZOKaoLvkDC0sfDIzRNueAu8 njRlkxScrEF0gURPfrggjPS DnyN2bZIDbdVFjhZurZY6iZ TBpbjtm l313XmYmYVA3RTCqeROsU3T mkH3uYbScUIJySVDdI4HtgR DcWCeeN096NDnsXdZ3UGUcu oOcB3Mn ICKrtNceAxG5v1E2Vv7wLt9 pVH0lDRF7JQ37BB98qRWet9 B7eQW4K8DyVJQcojloorulb HC5QDMe KJShtZ98wEDpPJbgZu2ne5T 4t276QTEdDYNbvL44Xx6ckZ rzQQHciEMAiY4leyxkd4pbg jogIzAw AKUlSNl6DZm2NVRqpXiqUaO mEIG6ObA5UPH8rQSlqJ9bjJ jpetnthL4xPst+NTQgWWVhc dB2O7Yr Lhi3ZCFbxOdhSV4cyLKpVXj nKh6etWyrqBjqRT5sMPQbda lpZHOurT3eXLCkuPXbcLkbU A8pWZUk viogy154WfPmSHK8TZXbiNO eD6BrlG0vZmRmMQZmTHRtH7 PvxERgIKbjK715FNmmIqO1N HZlcnRp F3YqFPWgdPdaOxK5m2D8Yp9 BBF9zvAL0W1DfBsy2SBFetN vkZZ5yuQDfQYmyDw1umHvnd MkcSF8y DFEnrvooLKThkM4rMKLgbWU mjYtkPZ6rALNccxjoz319Ve ZjALB8BSZdoWOrL0ZtdL2bO iAjMDAw KBJmY9ReqSJaPOavW035TCp nKbB9FGEnckQbP1QxRVRlpW oyZvS1f4V5Dv8HpTEpDCEfS U74FN09 PT69Q4OfHwbvfDJouDM+PHR hYmxlIHdpZHRoPScxMDAlJy DqfFveEU2rLy2sCEAhPGOrh GxhcHNl ZsXxj1jiPFHzNZdaTV7wyIe rN2VamZL8IQTgd5e6Ic81A5 3rL2VteFH+TTWegUU4pOZ5f M3cErMu MsK3HBmuB536SyEuyQBwUmd pd9vym8pbvVr6DqPvFBOygu RdqFsrHGE1s3DnEe79R89dJ HdpZHRo GTHsAEFlSHBazMjggy7fpJ9 wIi8+IEMxfEI0tGZ3zZ0eKk LrAuR4GDbxD705AzSphJXhV pyzY45l X0IlcZC+QQXcWjo9BGFusMl bRA8ypAVxLOcrSo1uREX2Tl ZvHaKgGIyxD8HzVISfmecbc mlnaHQ6 CIAvQVUdhB88Ho5bfOnjQl0 gMZRtTLD2EBHbwMFiN4RqcG 0yMcQzNQZwOEVgV6TuaHBoO BtmF273 CDbeEcT1SZPnabZtR3YoHQQ zyFgtEhB5s6S5Fj3UpFzbfL IcYW0hJmDdMNf7H0LvKtz4E CBzdHls AA9dvJYyQIzcKz7skYdugSe zTT4wRICzsuyih120IkBxb0 yjSVAmmEHsIMcqZIN0M79ot 8Q1RZGj NMRhMMV1gJP4kX5cpSmstit gbGVmdDsgdmVydGljYWwtYW awY210NVBjnLniKnFQRxq5P 3JfRot2 PQTgjLthWA3zkHWgYGplZh2 clFxeoUhyHD4fBVSskmqfh5 91PvCkn9zvASDtbSBfHPjvU BO1N13x t0E8YPYeTXZcQPS7vYW6wK6 hbGlnbjogbGVmdDsgdmVydG yoWOmcZYorK986JLKexZzrR i6HCmw7 G0McUve4DWMbjNdoAE2wwAL iNCjuMp2vaSfocGmxIL4rSP Dyambva283AhPaa2njCJDar HQgVGlt FDO2K67de5Y6AHLvVYEuZMO 7nHC1yX1duTgxgzgppUDmmB cvauQoaHusQDllBBlpU022U HRvcDsn PlBheWVyOjwvdGQ+HR37cy2 2U1OeRfpwWfa5NUAbGTU2kZ O8jR4aWHCnXIwuy4Q0eGH9J 2JvcmRl ci1j (more content not included)... Normal [facility] [place] Mamm Screen w/CAD if perf [...] VERY IMPORTANT TO YOUR HEALTH. THE CURRENT [employer] CANCER [...] Satya Key MD Transcribed by: EDDI Technologist: [facility] Assessment: BI-RADS Category 1-Negative Recommendation: Normal interval follow-up Normal [facility] Consent for Treatmenton 09-28 Consent for Treatment [id number]#1.00C D:[address] [facility] Coding Summary.on 10-02-2020 Coding Summary. CD:[id number] Gh0 bWw+PGhlYWQ+MB8GHMFoF51 yeMXyoY7DQ3bVWM2JJQLEJQ YJEL7MRU4kjGL6LNwoD6Mfy iAv SjapgMJsZU73EHe3GCP7yXt aXWcyiC1mqPFlT1d6AiFiXQ 15sK53FCrpOAViYiS3ClOki jsgbWFy U3bePfBneVFfGsw+PHRhYmx lIHdpZHRoPScxMDAlJyBzdH kuNK7pZq8cKVIyWRBmiUyhr HNlOiBj z4lwLGDpCAhaQP0ztScwW6C csLQ8PPWfn7v6Ir17eRL+PH BeVSW3wOezRYyjv900DqZdb 9iyLLZ0 hBHiCZuuSQD2Z49wt9Q2IUJ hFIHgTTK4hAE0nD0nhIdvsv miX6FmtUEwTwQ8OUR0dFGwm Z0xkVix axkliF8tMui+T22XMF1GITU LVW9TEwj2L4ShNpbiaCJ+PC 02LNFqTY14gXOhsQVlb8hqm Ua5DgOk WQNgXPZ2rVdoDFvbc8JpVAM gY79izWNgd7U0VIZniKnhpY CzLvOtwJR0oM2jYCmegbbiz 2hvdzsn Zglhy3jmef23pZ23H08iOXw gRHEzXOI8BAPuHTBmkVqwyl 5ufP4sVd8+FHfud2fqn6hvv Nb3EcTo ZGFluqSngVjzPXS9p5ZtYu9 6G5CfaWfse1FoIzs0vf84bK Hia7Z5qCA9FHcyFMJefA9gA WxlZnQ6 PGRfIzUtaT52cFPuLQonHd7 fpYohuLoaKN1vPUGxctdjCA WbwA1aUHSaiCFtbBsbXJ5lR TBpbjtm m093DhEbTBQ3KYMxdXFsT6Q wxV4sXlSdBUZyMWAtI1ZxvK ZnJBitI352CFxdXoU2MXQpc wFnD6Hh EFQmuXpiQfA2z9K1Vt0Vj8P rllxyMTN9INnyVVK3UeN9Tu ZaNgU2U9EzEzg2WFYvcXyzF T4mS7Ir ZGRebackhugdiID4EOKiTGX lqX04iBEwWBapMz5wz2C2d8 58TPKeQPQnfR58Cy9dpAdjA TBwdCBU eN2sghrwu7pjwcxgYeJjWVP dDEo9VDm7GSDyqEemLkZfVU F6ZyT0VWP0pMPskA3xkBtge zqgkR5f Oyc+X15ghP0lZCN6XKN1gzp iJKLaezGnCA05VU37U2WkIk wvdGFibGU+PGRpdiBzdHlsZ P5sWkXz a5vxu1LxQTniF4ZmZDIlUKi fZim2RNNxMAP2oXQ2vX7dWV AdXVbum6Z5zHM8Z0AlmkUko a0ub8yo JUBmEZnbL05xkCGhz1P6OAJ brLB0AVMudLawQzXptF17Om c+LCJfoIxjo0TjGwhbd1nji 0bnjZh5 DxFqWASmljPbgJncZAH0u6N eFd08T24uWWrsTPWsMXYgLA JkJGTocUyyoc1itZ4oEp6+P GNvbCB3 uDI4vZ7nRXBkUgT1DXeaE89 6MsUtqCHlMedfq2tjh4beyG l3WaWbBEFzzkKnfBjyRVN1v 5OiDq51 H11fHYvsCJSbNGAcQONhIPZ fkWnssf7kpB8lNr7+PC9jb2 wqxz21pS87mFQ+NQAhOGW5r WxlPSdw VXClbH6uTHmkBvN4GWItQyT gnY55pPDnTOlzXn4qhVtliB tdYY8hFPVkrhxeu344IeUzw 2xkIDEw lBGqAUghXNM5T01dd1J9UQA kKBSzYIL9uLI9tG1kqGcwbw ogbGVmdDsgdmVydGljYWwtY ZqiT622 IHRvcDsnPlBhdGllbnQgTmF yGYz1U9GgTql1NNUxvYgaYJ 2ltIQyOOmaWc4zsOfubYviA Z1kNHFh ulntf023RjBcb5kvISUfnHB dVJobVKD5L13tn4Z4SHOdMM IqHPV5iRC9aY5gaSmojnvuo GVmdDsg vwPfrTjtMZmqSNziR929YRD mvOpsOcRonsYdKNVjfNF6ZM 60QQ71cYKmp3H9xXR2R5UqA GRpbmct erqpxBU5FNZtDKArzL93Oi6 ayZpmHk0iJALrRHM1AOWpsJ WmF9RjsJ3uQkUxIWScIELiR 3RleHQt TRubE823EGdsSnZ3UVPzuvQ hQ4VjKZCpsYroOwQ4b8S6Dk 2PN0A1RT02WQ72mYTru2M4o DU4K1By LXFelltmhvsskZW5ALQcSJI dhU60Pa9djAtfJl4fTDBnBX T8ZRAdmOIpY6AsrY5lQkMoE DAwMDAw V5GbbJErHRgdV548FTnoYdJ 8DJXcrdRyV2McXWUzkMpnQa X8s9V5Tx3XGFt8RF01YK88n USby0N7 pIX9T2HfRGYnzlfjwnmkrRG 3ILZxCWTovO22Aj9byNcfGi 5gBONcTQU8MPMvoLSeU9Pxn I7hPiXr FIKsQIYkZ0LxdHPkWUcfB85 9GAfhUyG1LYTdfmSmS9PwSX RskVckXnV5n9U2Go2GDLJvG V63XUG7 aKN0SN91MP87E6QsPeqdlFC ibGU+PHRhYmxlIHdpZHRoPS ijKLMpMqJmjMyxHP5wHu3pD GVyLWNv sCmkoIIoOkMud1czPDUnVLe wUZ4vlNhhM2YxpNT8ZHXoz6 r4Wj99X30wX4SpaHY+PGNvb UG2tNL3 qA3mBsLsSrT9QAmiR855AuF rfCFzUnmfn5lwg8rwkYw5Iz E5IVEneiCxvUdyEZR6o3VbP q30C82q IHdpZHRoPSIxNSUiIHZhbGl hkn8igZ0dXa0+CFOhzBF1qT P3nW1cQlFxNzS8BNtpU547Z nRvcCIv Epcju7xgw8pcyDv2SqKmBSC lswPrtDjhQIJ5d0TtMl47L7 VclPmqn5SiOtx0jy67xYHzp 2Q7wZH4 E7HxMLVbvegwmIIgbIeaXF8 zIRCjykxgNCOujN4hRAFyM1 i9NpRiByM2VOqaC5PijxW3G DEwcHQg GCphJDQ0L95yd5N0ODXjUWO oBVE2jZS3uZ7cwVvjkpmhhI VmdDsgdmVydGljYWwtYWxpZ 246IHRv tXubQMXkmX2vLERscNJoaIa gLA2gJUUgndipIzmMMHrNQf UHZzczWVqMNfKGORQOPFj2O 3BfGcg5 YPAulHvnZY2piUQpEZbbZp1 siKbliLnjWI8rWTKxbkbjJE WazC6xRLHjiBHrqKutZA5bL TBpbjtm a576ExZrDLK6WYTrnTInF5K zkX3wZaHdFLZoKFOdC8ZodA TmWIjdJ844PYdaSeO4VSOcy zVcH1Le ENFleZqeAmF3r9X8Ao6lXl4 lDN1nQPL6KH19SM61fHQba8 Q5hNQ4Z3ToDRSfyabsgitwe IB5TKPz LGSbsY64zYJgGIleFn0en7C 8c771EWAoRUYcjL05Kq7bxM zfKCAxvDLSvF5axaoav4acf jogIzAw NQCmKBc5EMa8FSBkjXlnIpE kGRO0UkT2FHP5xDMlqR6moI jcestcxD4aVqm+NTQgWWVhc yA6M8Dc Uvu7NYRcsGzlSU7kjXDmMUo uSm0lrYeynAnlEA9tSIVdgr wnBUEzcZ4vPKKvyPTisPdzJ T8lIXYj jefud315MeYpBHU1DRXjqRX mI6MjgV5cHzDuNXEbMYJfF4 BnlOYcRXywU221DCldMmA7U HZlcnRp B5QrDSXsaQshFoM5q9B4Zs4 HEF3uyHR7I7RmWqg2MKCwiU buSF5jcZHiURcgCf4peMjdb HwoIT3o SHGwoycvZSQkrR6jMLJwrXI cdFvxNC3yBJSneatkx219Qo DpDEU4AQLgiSBmI0MkfB8dE iAjMDAw HLGaE4WqzVUoUVdvK124MZl rVfA9CEEjaiVgH0PsWVIedZ mwVlV9p5D0Sn6JpLBsDTTpW T95WO17 RX52B6MmPszwjGDqpSI+PHR hYmxlIHdpZHRoPScxMDAlJy AblFjwBI6gCp9aBVHpBCVme GxhcHNl UsBjv8uoDNQzZUpbUQ9ezQt uK5AjdPU6DKSbj8v6Ch57T6 9hY5UdbNW+AEIinQY1kNR8g I9kHdRk QbJ5QCoqT670JyLudYTdGrt uq1msp8tleOd3LoOySIWkgg QibEnhGRT1s3OfYo74R90vP HdpZHRo MUKzWRDaQAMwuCqkga3dbR4 wIi8+NKWbuFD5iZM1xX5hTl VvRoL4GLdcA457XkEcySUtA rsvB00q H8HckRQ+VRIzBmg5PJVhjFh rKF8zwSRnHOdwMb3wIJD7Es YwXwCyFDdlU8FuQXColpogd mlnaHQ6 MRYxUJYjfQ55Jg3ivLjwVd4 aGGJxMWL1MNXsvNRiW0UzyI 4gBcRpIJGhHAMnQ4YokPBdJ VjjW381 JGmrXeV7LCUhxpAmT7WaZVB snWajNuI8k1E8Zi5HiEhhrM VuFF4oQeFgVHt0Q5VaPkw3J CBzdHls ZZ2ldRWzXWmaVi8kxKtvgGs mQJ9rJDGltmbot564PlEww0 hpQQCjqMJaFHsmXER6C33qr 7Q3ZVMe FHJaAXK0qUQ0uR3omQpfhej gbGVmdDsgdmVydGljYWwtYW szE477QIGnuNqeQkHSNah9U 8VdPeh7 IMNxeJbjSU1ayYBtPJksMb7 lvQzpiJuxLD0cEYLhhjoiu1 49RwNuh4otSRLayDQoLPwoG IT4S07r m8L1VQJzOGNsIKY0mYO7dV8 hbGlnbjogbGVmdDsgdmVydG kwBGzeXQpmP365LBRwtDgfJ q7PZrx7 G1NgYxk0NUTduBzmQD1emKN eVOvoCy1knRqvxVavOH7vEQ Hmucldw869FuDqy0drOWOjw HQgVGlt UQE9C71sq0N1PHRzQUJpOKK 6yVH2zR1ydMxcdpjmcWXvjO uikmKzbZkhWNkcSYgjX188D HRvcDsn PlBheWVyOjwvdGQ+BC88wl9 9I8PwWfbcCre2VGNmDLD3vT G6lO7mYZUoGEkrd0T1lQM6H 2JvcmRl ci1j (more content not included)... Normal [facility] Auto Diffon 09-25-2020 Basophils/100 WBC (Bld) 1.0 % Normal 0.0-2.0 [facility] Comment on above: Order Comment: Order Added by Discern Expert. Performed By: #### 2 806860, 2952590, 64885577, 5034531, 4489926 #### [facility] [address] [place] [address] 95467 Basophils/Leukocy juan Auto (Bld) [Pure # fraction] 0.0 E9/L Normal 0.0-0.2 [facility] Comment on above: Order Comment: Order Added by Discern Expert. Performed By: #### 2 965809, 4228674, 17945902, 3657155, 4254923 #### [facility] [address] [place] [address] 08109 Eosinophils/100 WBC (Bld) 5.0 % Normal 0.0-8.0 [facility] Comment on above: Order Comment: Order Added by Discern Expert. Performed By: #### 2 755166, 1572168, 72118958, 0458832, 9516394 #### [facility] [address] [place] [address] 17639 Eosinophils/Leuko cytes Auto (Bld) [Pure # fraction] 0.2 E9/L Normal 0.0-0.5 [facility] Comment on above: Order Comment: Order Added by Discern Expert. Performed By: #### 2 609938, 9490334, 38941809, 2086274, 6747860 #### [facility] [address] [place] [address] 24143 Lymphocytes/100 WBC (Bld) 36.6 % Normal 14.0-50.0 [facility] Comment on above: Order Comment: Order Added by Discern Expert. Performed By: #### 2 256852, 2566312, 74275064, 7144033, 2039671 #### [facility] [address] [place] [address] 16832 Lymphocytes/Leuko cytes Auto (Bld) [Pure # fraction] 1.5 E9/L Normal 1.0-4.0 [facility] Comment on above: Order Comment: Order Added by Discern Expert. Performed By: #### 2 970370, 3301997, 18901342, 3724664, 8463867 #### [facility] [address] [place] [address] 20899 Monocytes/100 WBC (Bld) 7.7 % Normal 4.0-14.0 [facility] Comment on above: Order Comment: Order Added by Discern Expert. Performed By: #### 2 831510, 2341878, 85061161, 3252714, 5694564 #### [facility] [address] [place] [address] 63752 Monocytes/Leukocy juan Auto (Bld) [Pure # fraction] 0.3 E9/L Normal 0.2-1.0 [facility] Comment on above: Order Comment: Order Added by Discern Expert. Performed By: #### 2 996724, 7027954, 34275318, 2822858, 2214628 #### [facility] [address] [place] [address] 52385 Neutrophils/100 WBC (Bld) 49.7 % Normal 36.0-75.0 [facility] Comment on above: Order Comment: Order Added by Discern Expert. Performed By: #### 2 407236, 2730350, 21639308, 6400132, 6443059 #### [facility] [address] [place] [address] 76090 Neutrophils/Leuko cytes Auto (Bld) [Pure # fraction] 2.0 E9/L Normal 2.0-7.5 [facility] Comment on above: Order Comment: Order Added by Discern Expert. Performed By: #### 2 735411, 5842329, 77002245, 0733678, 1629931 #### [facility] [address] [place] [address] 09489 CBC w/ Auto Diffon Erythrocyte distribution width (RBC) [Ratio] 13.0 % Normal 10.9-14.2 [facility] Comment on above: Performed By: #### 2 943552, 6242511, 63207855, 2841209, 3364672 #### [facility] [address] [place] [address] Hematocrit (Bld) [Volume fraction] 39.1 % Normal 34.0-46.0 [facility] Comment on above: Performed By: #### 2 073496, 5392369, 31813674, 9896509, 2099195 #### [facility] [address] [place] [address] Hemoglobin (Bld) [Mass/Vol] 13.3 g/dL Normal 12.0-16.0 [facility] Comment on above: Performed By: #### 2 070045, 0004100, 82659925, 6631509, 2539973 #### [facility] [address] [place] [address] MCH (RBC) [Entitic mass] 28.7 pg Normal 27.0-34.0 [facility] Comment on above: Performed By: #### 2 477458, 7231779, 07963542, 0104506, 4615996 #### [facility] [address] [place] [address] 39529 MCHC (RBC) [Mass/Vol] 34.0 g/dL Normal 31.4-36.0 [facility] Comment on above: Performed By: #### 2 714543, 1600687, 42463210, 4863417, 7329028 #### [facility] [address] [place] [address] MCV (RBC) [Entitic vol] 84.4 fL Normal 80.0-100.0 [facility] Comment on above: Performed By: #### 2 088390, 9408595, 00682166, 1860015, 5398660 #### [facility] [address] [place] [address] 32779 Platelet mean volume (Bld) [Entitic vol] 8.0 fL Normal 6.4-10.8 [facility] Comment on above: Performed By: #### 2 119215, 8936022, 23546428, 2400885, 9038350 #### [facility] [address] [place] [address] 87460 Platelets (Bld) [#/Vol] 222.0 E9/L Normal 150.0-500.0 [facility] Comment on above: Performed By: #### 2 299005, 7411058, 05529527, 2885754, 8646874 #### [facility] [address] [place] [address] 41538 RBC (Bld) [#/Vol] 4.6 E12/L Normal 4.3-5.9 [facility] Comment on above: Performed By: #### 2 741846, 7790640, 71699804, 2534992, 3269382 #### [facility] [address] [place] [address] 66172 WBC corrected for nucl RBC Auto (Bld) [#/Vol] 4.1 E9/L Normal 4.0-11.0 [facility] Comment on above: Performed By: #### 2 628543, 5645544, 08111844, 9325593, 3137503 #### [facility] [address] [place] [address] 96995 CMPon 09-25-2020 Albumin [Mass/Vol] 4.0 g/dL Normal 3.3-5.0 [facility] Comment on above: Performed By: #### 2 161787, 1360359, 50529880, 9418738, 8910137 #### [facility] [address] [place] [address] 13601 Albumin/Globulin (S) [Mass conc ratio] 1.3 Normal 1.1-2.2 [facility] Comment on above: Performed By: #### 2 310262, 4317778, 13682367, 8197358, 6260578 #### [facility] [address] [place] [address] ALP [Catalytic activity/Vol] 64 Int._Unit/L Normal 21-98 [facility] Comment on above: Performed By: #### 2 934724, 3610640, 31064047, 6603926, 7803392 #### [facility] [address] [place] [address] ALT No additional P-5'-P [Catalytic activity/Vol] 24 Int._Unit/L Normal 6-46 [facility] Comment on above: Performed By: #### 2 537564, 7100231, 33525878, 0494716, 0120082 #### [facility] [address] [place] [address] Anion gap [Moles/Vol] 13 mmol/L Normal 6-16 [facility] Comment on above: Performed By: #### 2 617753, 1150872, 01361073, 9369919, 4092656 #### [facility] [address] [place] [address] AST [Catalytic activity/Vol] 17 Int._Unit/L Normal 5-43 [facility] Comment on above: Performed By: #### 2 576409, 4583862, 70036210, 2973706, 7361626 #### [facility] [address] [place] [address] Bilirubin [Mass/Vol] 1.0 mg/dL Normal 0.0-1.1 [facility] Comment on above: Performed By: #### 2 255057, 0649959, 87364672, 8091449, 0343190 #### [facility] [address] [place] [address] Calcium [Mass/Vol] 8.9 mg/dL Normal 8.9-11.1 [facility] Comment on above: Performed By: #### 2 533270, 8472892, 22261284, 8557534, 1691571 #### [facility] [address] [place] [address] Chloride [Moles/Vol] 99 mmol/L Low 101-111 [facility] Comment on above: Performed By: #### 2 268343, 3330932, 83498356, 4160449, 0035214 #### [facility] [address] [place] [address] CO2 [Moles/Vol] 30 mmol/L Normal 21-31 [facility] Comment on above: Performed By: #### 2 730904, 7879738, 88318622, 6543595, 1358749 #### [facility] [address] [place] [address] Creatinine [Mass/Vol] 0.6 mg/dL Normal 0.5-1.3 [facility] Comment on above: Performed By: #### 2 594904, 5681997, 21784462, 9213998, 0440896 #### [facility] [address] [place] [address] Globulin (S) [Mass/Vol] 3.1 g/dL Normal 1.4-4.0 [facility] Comment on above: Performed By: #### 2 688918, 0490932, 71752513, 5147574, 4640703 #### [facility] [address] [place] [address] Glucose [Mass/Vol] 98 mg/dL Normal 55-199 [facility] Comment on above: Result Comment: If t his glucose result represents a fasting glucose, interpretation should refer to the following reference range: 55-99 mg/dL Performed By: #### 2 546032, 2152471, 96003658, 4957753, 1923799 #### [facility] [address] [place] [address] Potassium [Moles/Vol] 3.4 mmol/L Low 3.5-5.3 [facility] Comment on above: Performed By: #### 2 115547, 9202752, 53096503, 7208340, 4381605 #### [facility] [address] [place] [address] Protein [Mass/Vol] 7.1 g/dL Normal 6.0-7.8 [facility] Comment on above: Performed By: #### 2 948268, 2978741, 44450218, 1299472, 6064000 #### [facility] [address] [place] [address] Sodium [Moles/Vol] 139 mmol/L Normal 135-145 [facility] Comment on above: Performed By: #### 2 260933, 4505603, 53819291, 9109028, 7788922 #### [facility] [address] [place] [address] Urea nitrogen [Mass/Vol] 22 mg/dL High 5-21 [facility] Comment on above: Performed By: #### 2 394968, 2333125, 89487279, 8488692, 3800144 #### [facility] [address] [place] [address] Urea nitrogen/Creatini ne [Mass ratio] 37 No Units High 10-20 [facility] Comment on above: Performed By: #### 2 614586, 1169320, 22406212, 4915241, 9328474 #### [facility] [address] [place] [address] Consent for Treatmenton 08-29 Consent for Treatment [id number]#1.00C D:[address] [facility] Lipid Panelon 09-25-2020 Cholesterol [Mass/Vol] 182 mg/dL Normal 120-200 [facility] Comment on above: Performed By: #### 2 248870, 4977810, 46872804, 7260219, 5979375 #### [facility] [address] [place] [address] Cholesterol in HDL [Mass/Vol] 46 mg/dL Invalid Interpretation Code [facility] Comment on above: Result Comment: HDL > or equal to 60 mg/dL: Low cardiovascular risk HDL < 40 mg/dL : High cardiovascular risk Performed By: #### 2 723822, 6387994, 98204233, 3298772, 8964805 #### [facility] [address] [place] [address] Cholesterol in LDL [Mass/Vol] 113 mg/dL Normal <=129 [facility] Comment on above: Performed By: #### 2 708438, 8298454, 74157387, 1357793, 9775029 #### [facility] [address] [place] [address] Cholesterol in VLDL [Mass/Vol] 9 mg/dL Normal 7-40 [facility] Comment on above: Performed By: #### 2 714572, 6098885, 29747686, 0754362, 3435119 #### [facility] [address] [place] [address] Triglyceride [Mass/Vol] 44 mg/dL Normal <=149 [facility] Comment on above: Performed By: #### 2 205328, 8139543, 14607095, 5075657, 7618198 #### [facility] [address] [place] [address] Physician Orderon 09-25-2020 Physician Order [id number]#1.00 CD:[address] [facility] eGFRon 09-25-2020 GFR/1.73 sq M.predicted among blacks MDRD (S/P/Bld) [Vol rate/Area] mL/min/{1.73_m2} Normal >=59 [facility] Comment on above: Order Comment: Order added by Discern Expert. Result Comment: eGFR is race adjusted. AA=. Performed By: #### 2 291538, 8123900, 82827072, 5871105, 8924773 #### [facility] [address] [place] [address] GFR/1.73 sq M.predicted among non-blacks MDRD (S/P/Bld) [Vol rate/Area] mL/min/{1.73_m2} Normal >=59 [facility] Comment on above: Order Comment: Order added by Discern Expert. Result Comment: Certified Peer Specialist adrian kidney disease could be indicated at eGFR's of less than 60 mL/min/1.73m2. Kidney failure is indicated at less than 15 mL/min/1.73m2. Performed By: #### 2 439686, 9354572, 67704633, 0750815, 7919018 #### [facility] [address] [place] [address] Consent for COVID Vaccineon 07-17-2020 SARS-CoV-2 (COVID-19) RNA HILARY+probe Ql (Unsp spec) [id number]#1.00C D:127 [facility] Consent for COVID Vaccineon 06-09-2020 SARS-CoV-2 (COVID-19) RNA HILARY+probe Ql (Unsp spec) [id number]#1.00 CD:127 [facility] Consent for Treatmenton 05-28 Consent for Treatment [id number]#1.00 CD:127 [facility] Coding Summary.on 06-07-2020 Coding Summary. CODING DATE: 021 [facility] STATUS: PAYOR: [facility] [place] [employer] DESCRIPTION 1492 [employer] - Level [...] result in slightly different terminology. Coded By: Jnaa Rapp CphT Date Saved: 06/07/2020 06:08 pm [facility] Vital Signs Date Time Vital Sign Value Performing Clinician Pina zavalay 12-05-2024 08:56-0400 Body mass index (BMI) [Ratio] 37.52 kg/m2 Yu Raphael [employer] Work Phone: [facility] 12-05-2024 08:56-0400 Body weight 107.05 kg Yu Raphael [employer] Work Phone: [facility] 12-05-2024 08:56-0400 Diastolic blood pressure 76 mm[Hg] Yu Raphael [employer] Work Phone: [facility] 12-05-2024 08:56-0400 Systolic blood pressure 128 mm[Hg] Yu Raphael [employer] Work Phone: [facility] 10-10-2024 11:04-0400 Body height 168.9 cm Devika Hemmer PA Work Phone: [facility] 10-10-2024 11:04-0400 Body mass index (BMI) [Ratio] 37.84 kg/m2 Devika Hemmer PA Work Phone: [facility] 10-10-2024 11:04-0400 Body weight 107.96 kg Devika Hemmer PA Work Phone: [facility] 10-10-2024 11:04-0400 Diastolic blood pressure 80 mm[Hg] Devika Hemmer PA Work Phone: [facility] 10-10-2024 11:04-0400 Heart rate 64 /min Devika Hemmer PA Work Phone: [facility] 10-10-2024 11:04-0400 Respiratory rate 17 /min Devika Hemmer PA Work Phone: [facility] 10-10-2024 11:04-0400 SaO2% (BldA) [Mass fraction] 97 % Devika Hemmer PA Work Phone: [facility] 10-10-2024 11:04-0400 Systolic blood pressure 132 mm[Hg] Devika Hemmer PA Work Phone: [facility] 04-11-2024 08:38-0500 Body height 168.9 cm Devika Hemmer PA Work Phone: [facility] 04-11-2024 08:38-0500 Body mass index (BMI) [Ratio] 36.79 kg/m2 Devika Hemmer PA Work Phone: [facility] 04-11-2024 08:38-0500 Body weight 104.96 kg Devika Hemmer PA Work Phone: [facility] 04-11-2024 08:38-0500 Diastolic blood pressure 84 mm[Hg] Devika Hemmer PA Work Phone: [facility] 04-11-2024 08:38-0500 Heart rate 70 /min Devika Hemmer PA Work Phone: [facility] 04-11-2024 08:38-0500 Respiratory rate 16 /min Devika Hemmer PA Work Phone: [facility] 04-11-2024 08:38-0500 SaO2% (BldA) [Mass fraction] 98 % Devika Hemmer PA Work Phone: [facility] 04-11-2024 08:38-0500 Systolic blood pressure 132 mm[Hg] Devika Hemmer PA Work Phone: [facility] 12-02-2023 09:00-0400 Body mass index (BMI) [Ratio] 36.88 kg/m2 Twyla Roberts PA Work Phone: [facility] 12-02-2023 09:00-0400 Body weight 105.23 kg Twyla Bhanu PA Work Phone: [facility] 12-02-2023 09:00-0400 Diastolic blood pressure 74 mm[Hg] Twyla Roberts PA Work Phone: [facility] 12-02-2023 09:00-0400 Systolic blood pressure 122 mm[Hg] Twyla Bhanu PA Work Phone: [facility] 11-23-2023 11:32-0400 Body height 168.9 cm Devika Hemmer PA Work Phone: [facility] 11-23-2023 11:32-0400 Body mass index (BMI) [Ratio] 36.31 kg/m2 Devika Hemmer PA Work Phone: [facility] 11-23-2023 11:32-0400 Body weight 103.6 kg Devika Hemmer PA Work Phone: [facility] 11-23-2023 11:32-0400 Diastolic blood pressure 82 mm[Hg] Devika Hemmer PA Work Phone: [facility] 11-23-2023 11:32-0400 Heart rate 66 /min Devika Hemmer PA Work Phone: [facility] 11-23-2023 11:32-0400 Respiratory rate 16 /min Devika Hemmer PA Work Phone: [facility] 11-23-2023 11:32-0400 SaO2% (BldA) [Mass fraction] 95 % Devika Hemmer PA Work Phone: [facility] 11-23-2023 11:32-0400 Systolic blood pressure 120 mm[Hg] Devika Hemmer PA Work Phone: [facility] Healthcare Encounters Encounter Date Encounter Type Care Provider Facility Start: 12-05-2024 End: 12-05-2024 Bamboo flowsheet Yu Raphael [employer] Work Phone: [facility] Alaina OBSTACEY Start: 12-05-2024 End: 12-08-2024 Bamboo flowsheet Yu Raphael [employer] Work Phone: [facility] Alain[facility] OBGYN Start: 12-05-2024 End: 12-08-2024 Clinisync Result Encounter Yu Raphael NP Work Phone: [facility] External Department Unsolicited Start: 12-05-2024 End: 12-05-2024 Patient encounter procedure Yu Raphael [employer] Work Phone: [facility] Healthcare Start: 12-05-2024 End: 12-05-2024 Periodic preventive med est patient 40-64yrs Yu Raphael [employer] Work Phone: [facility] Alaina OBANDRZEJN Comment on above: Well woman exam with routine gynecological exam; H/O: hysterectomy; Breast cancer screening by mammogram; Osteoporosis, post-menopausal ; Hemorrhoids, unspecified hemorrhoid type; Vaginal itching Start: 12-05-2024 End: 12-05-2024 ambulatory YU RAPHAEL Not Available Start: 10-17-2024 End: 10-17-2024 Telephone encounter Devika [...] Periodic preventive med est patient 40-64yrs Devika BOWIE Work Phone: [facility] [...] Breast cancer screening by mammogram; Osteoporosis, post-menopausal ([facility]) Start: 11-23-2023 End: 11-23-2023 Bamboo flowsheet Devika BOWIE Work Phone: [facility] Start: 11-23-2023 End: 11-23-2023 Bamboo flowsheet Devika BOWIE Work Phone: [facility] Start: 11-23-2023 End: 11-23-2023 Office outpatient visit 15 minutes Devika BOWIE Work Phone: [facility] Comment on above: Flexural eczema (Mari gabriella Dx) Start: 11-08-2021 End: 11-09-[address] POOL SORIA Facility:[facility] Start: 10-29-2021 End: 10-29-[address] MONIQUE ZAVALA Facility:[facility] Start: 10-28-2021 End: 10-28-2021 ambulatory YU RAPHAEL Facility:[facility] Start: 10-22-2021 End: 10-22-2021 ambulatory YU RAPHAEL Facility:[facility] Start: 10-11-2021 End: 10-12-[address] NICO DOBSON Facility:[facility] Start: 10-08-2021 Encounter for genera l adult medical examination without abnormal findings DR DEVIKA ESPARZA [facility] Start: 10-04-2021 End: 10-05-[address] DEVIKA ESPARZA Facility:[facility] Start: 10-04-2021 End: 10-05-2021 Encounter for general adult medical examination without abnormal findings DR DEVIKA ESPARZA Facility:[facility] Start: 02-27-2021 End: 02-27-2021 ambulatory YU RAPHAEL Facility:[facility] Procedures Date Procedure Procedure Detail Performing Clinician Start: 12-05-2024 IGP,APTIMA HPV,AGE GDLN Generic External Data Provider Start: 12-02-2023 IGP,APTIMA HPV,AGE GDLN Twyla BOWIE Work Phone: Start: 10-20-2023 Mammography Devikadomenico Duvalenrico BOWIE Work Phone: Start: 11-24-2022 Cytp cerv/vag auto t hin layer prep mnl screen Monique Abbey DO Work Phone: Start: 10-15-2016 Colonoscopy Devika BOWIE Work Phone: H/O: hysterectomy H/O: hysterectomy Oswaldoist andrea Raphael NP Work Phone: Plan of Treatment Date Care Activity Detail Author Start: 10-15-2026 Screening for malign ant neoplasm of colon [facility] Start: 12-13-2025 End: 12-13-2025 Patient encounter procedure 12/13/2025 10:00 AM EDT Procedure Visit [facility] OBANDR[facility]N [address] [facility] [place] [id number] Twyla Drummond PA [address] [place] [address] [facility] Start: 04-12-2025 End: 04-12-2025 Patient encounter procedure [facility] Start: 01-02-2025 End: 01-02-2025 Patient encounter procedure 01/02/2025 8:50 AM EDT Office Visit [facility] [address] [facility] [address] Yu Raphael, RUDY [address] [facility] [place] [address] [facility] Start: 12-05-2024 End: 12-05-2025 DXA Skeletal system Views for bone density DEXA bone density Imaging Routine Osteoporosis, post-menopausal Expected: 12/05/2024 (Approximate), Expires: 12/05/2025 [facility] Comment on above: Expected: 12/05/2024 (Approximate), Expires: 12/05/2025 Start: 12-05-2024 End: 02-04-2026 MG Breast - bilateral Screening Bilateral screening mammogram Imaging Routine Breast cancer screening by mammogram Expected: 12/05/2024 (Approximate), Expires: 02/04/2026 [facility] Work Phone: Comment on above: Expected: 12/05/2024 (Approximate), Expires: 02/04/2026 Start: 12-05-2024 End: 12-05-2024 Patient encounter procedure [facility] Comment on above: Arrived Start: 11-28-2024 Influenza vaccination Influenza Vacc ine (#1) [facility] Start: 10-19-2024 Screening for malign ant neoplasm of breast Mammogram [facility] Start: 10-10-2024 End: 10-10-2025 Cobalamin (Vitamin B12) [Mass/volume] in Serum or Plasma Vitamin B12 Lab Routine Wellness examination Other fatigue Abnormal weight gain Expected: 10/10/2024 (Approximate), Expires: 10/10/2025 [facility] Comment on above: Expected: 10/10/2024 (Approximate), Expires: 10/10/2025 Start: 10-10-2024 End: 10-10-2024 Patient encounter procedure 10/10/2024 11:00 AM EDT Office Visit [facility] [address] [facility] [address] [place] [phone] Devika Esparza PA [address] [place] [address] [place] [address] Arrived [facility] Comment on above: Arrived Start: 04-11-2024 End: 04-11-2024 Patient encounter procedure [facility] Comment on above: Arrived Start: 12-02-2023 End: 12-01-2024 DXA Skeletal system Views for bone density DEXA bone density Imaging Routine Breast cancer screening by mammogram Expected: 12/02/2023 (Approximate), Expires: 12/01/2024 [facility] Healthcare Work Phone: Comment on above: Expected: 12/02/2023 (Approximate), Expires: 12/01/2024 Start: 12-02-2023 End: 12-02-2023 Patient encounter procedure [facility] Comment on above: Arrived Start: 11-29-2023 Influenza vaccination Influenza Vacc ine (#1) [facility] Start: 11-23-2023 End: 11-23-2023 Patient encounter procedure 11/23/2023 11:30 AM EDT Office Visit [facility] [address] [facility] [address] [place] [address] Devika Esparza PA [address] [facility] [address] [place] [address] Arrived [facility] Comment on above: Arrived Start: 1965 Screening for malign ant neoplasm of colon [facility] 25-hydroxyvitamin D3 [Mass/volume] in Serum or Plasma Vitamin D 25 hydroxy Total Lab Routine Wellness examination Other fatigue Abnormal weight gain Ordered: 10/10/2024 [facility] Comment on above: Ordered: 10/10/2024 CBC W Auto Different ial panel - Blood CBC and differential Lab Routine Wellness examination Essential hypertension Anemia, unspecified type Other fatigue Ordered: 10/10/2024 [facility] Work Phone: Comment on above: Ordered: 10/10/2024 Comprehensive metabo lic 2000 panel - Serum or Plasma Comprehensive metabolic panel Lab Routine Wellness examination Essential hypertension Hypopotassemia Abnormal weight gain Ordered: 10/10/2024 [facility] Comment on above: Ordered: 10/10/2024 Lipid 1996 panel - Serum or Plasma Lipid panel Lab Routine Wellness examination Essential hypertension Ordered: 10/10/2024 [facility] Comment on above: Ordered: 10/10/2024 THIN PREP TIS PAP AN D HR HPV DNA THIN PREP TIS PAP AND HR HPV DNA Pathology and Cytology Routine Well woman exam with routine gynecological exam Ordered: 12/02/2023 [facility] Comment on above: Ordered: 12/02/2023 THIN PREP TIS PAP AN D HR HPV DNA THIN PREP TIS PAP AND HR HPV DNA Pathology and Cytology Routine Well woman exam with routine gynecological exam H/O: hysterectomy Ordered: 12/05/2024 [facility] Comment on above: Ordered: 12/05/2024 TSH W/REFLEX TO FT4 TSH W/REFLEX TO FT4 Lab Routine Wellness examination Family history of thyroid disease Other fatigue Abnormal weight gain Ordered: 10/10/2024 [facility] Comment on above: Ordered: 10/10/2024 Immunizations Immunization Date Immunization Notes Care Provider [facility] 01-20-2024 influenza virus vacc ine, unspecified formulation Devika Hemmer PA Work Phone: [facility] 12-29-2019 influenza, injectabl e, quadrivalent, preservative free Devika Hemmer PA Work Phone: [facility] 12-29-2019 influenza virus vacc ine, unspecified formulation Devika Hemmer PA Work Phone: [facility] 05-23-2019 influenza, injectabl e, madin belia canine kidney, preservative free Devika Hemmer PA Work Phone: [facility] 02-26-2019 seasonal influenza, intradermal, preservative free Devika Hemmer PA Work Phone: [facility] 03-26-2017 influenza, injectabl e, quadrivalent, preservative free Devika Hemmer PA Work Phone: [facility] Payers Date Payer Category Payer Private Health Insurance [id number] 2022 Private Health Insurance [id number] 2019 Unknown [id number] 1965 Unknown [id number] 2.16.84 [id number] 1965 Unknown [id number] 2.16.84 [id number] 1965 Unknown [id number] 2.16.84 [id number] 1966 Unknown [id number] 2.16.84 [id number] 1966 Unknown [id number] 2.16.84 [id number] 1966 Unknown [id number] 2.16.84 [id number] 1966 Unknown [id number] 2.16.84 [id number] 1966 Unknown [id number] 2.16.8 [id number] 1965 Unknown [id number] 2.16.8 [id number] 1965 Unknown [id number] 2.16.84 [id number] Social History Date Type Detail Facility Start: 11-17-2022 End: 11-23-2023 Tobacco smoking status PRIS Never smoked tobacco [facility] Start: 11-23-2023 Tobacco use and exposure Smoke less tobacco non-user [facility] Start: 11-23-2023 End: 12-05-2024 Alcoholic beverage intake Current drinker of alcohol (finding) [facility] Start: 07-17-2023 End: 11-23-2023 Alcoholic beverage intake [facility] Start: 07-17-2023 End: 10-10-2024 Social connection and isolation panel [facility] Do you belong to any clubs or organizations such as worship groups, unions, fraternal or athletic groups, or [...] hard at all [facility] (I/We) worried wheth er (my/our) food would run out before (I/we) got money to buy more. Never true [facility] Start: 10-02-2022 Alcohol Comment Caffeine intak e: 1-2 cups per day coffee, soda [facility] Start: 1965 Sex assigned at [place] file [place] [facility] Functional Status Date Assessment Result Facility 10-10-2024 Patient Health Quest ionnaire 2 item (PHQ-2) [Reported] [facility] Healthcare Clinical Notes 11-23-2023 to 12-05-2024 Gwen Bridges [...] nursing note reviewed. Exam conducted with a barn worker present. Vitals: Estimated body mass index is [...] Raphael NP documented in this encounter [facility] 10-17-2024 Telephone encount er Note Please let [...] other changes recommended at this time. [facility] 10-17-2024 Miscellaneous Notes Formattin g of this [...] this time. documented in this encounter [facility] 10-10-2024 History of Presen t illness Narrative [...] for Hypertension. documented in this encounter [facility] 04-11-2024 History of Presen t illness Narrative [...] test 01/18/2019 COVID-19 09/2021 Hypertension (CMS/HCC) Menorrhagia 2011 adenomyosis Metrorrhagia Umbilical hernia Past Surgical History: [...] for Wellness. documented in this encounter [facility] 12-02-2023 History of Presen t illness Narrative [...] nursing note reviewed. Exam conducted with a barn worker present. Vitals: Estimated body mass index is [...] Z12.31 DEXA bone density 3. Osteoporosis, post-menopausal ([facility]) M81.0 Bilateral screening mammogram Bilateral screening mammogram [...] JAMIR Jang documented in this encounter [facility] 11-23-2023 History of Presen t illness Narrative [...] Appointment As Scheduled. documented in this encounter [facility] Healthcare Evaluation note Diagnosis Flexural eczema- Primary [...] of genital organs documented in this encounter [facility] Summary Purpose Family History No Family History Records FoundNo Family History Records FoundNo Family History Records FoundNo Family History Records Found Advance Directives No Advanced Directives Records FoundNo Advanced Directives Records FoundNo Advanced Directives Records FoundNo Advanced Directives Records Found Additional Source Comments INFORMATION SOURCE (unrecogn ized section and content) DATE CREATED AUTHOR [facility]25/2020 [facility] DATE CREATED AUTHOR [facility] DATE CREATED AUTHOR AUTHOR'S ORGANIZ ATION 10/18/2024 [facility] DATE CREATED AUTHOR AUTHOR'S ORGANIZ ATION 12/06/2024 [facility] Care Teams (unrecognized sec tion and content) 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 Specialty Start Date End Date Oralia Reeder MD [address] [facility] [address] [place] [address] PCP - General Family Medicine 10/02/22 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 Specialty Start Date End Date Oralia Reeder MD [address] [facility] [address] [place] [address] PCP - General Family Medicine 10/02/22 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 Specialty Start Date End Date Oralia Reeder MD [address] [facility] [address] [place] [address] PCP - General Family Medicine 10/02/22 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 Specialty Start Date End Date Oralia Reeder MD [address] [facility] [address] [place] [address] PCP - General Family Medicine 10/02/22 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 Specialty Start Date End Date Oralia Reeder MD [address] [facility] [address] [place] [address] PCP - General Family Medicine 10/02/22 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 Specialty Start Date End Date Oralia Reeder MD [address] [facility] [address] [place] [address] PCP - General Family Medicine 10/02/22 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 Specialty Start Date End Date Oralia Reeder MD [address] [facility] [address] [place] [address] PCP - General Family Medicine 10/02/22 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 Specialty Start Date End Date Oralia Reeder MD [address] [facility] [address] [place] [id number] PCP - General Family Medicine 10/02/22 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 Specialty Start Date End Date Oralia Reeder MD [address] [facility] [address] [place] [id number] PCP - General Family Medicine 10/02/22 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 Specialty Start Date End Date Oralia Reeder MD [address] [facility] [address] [place] [id number] PCP - General Family Medicine 10/02/22 Reason [...] BE BASED ON THE PRIMARY CLINICAL RECORDS. [facility]. provides no warranty or guarantee of the accuracy or completeness of information in this document.
--- NOTE | 2024-12-19 08:34 | MM_ITS ---
Patient Name: AJITH REYES MR#: [id number] : 1965 Exam Date: 12/19/2024 Ordering Doctor: VAISHALI WARD CNP RADIOLOGY REPORT PROCEDURE: MM TOMOSYNTHESIS SCREENING BI COMPARISON: MM TOMOSYNTHESIS SCREENING BI, 10/20/2023. MM TOMOSYNTHESIS SCREENING BI, 10/10/2022. MG MAMM SCREEN 3D FARIBA CAD, 10/11/2021. MG MAMM FARIBA SCRN W CAD DIG, 12/12/2014. INDICATIONS: Screening Calculator Name NCI Breast Cancer Risk Assessment Tool 5 Year Breast Cancer Risk 1.20% Lifetime Breast Cancer Risk 6.90% Personal Breast Cancer No Personal Ovarian Cancer No Treatments None Family Cancers None LOCATION: [facility] BREAST COMPOSITION: There are scattered areas of fibroglandular density. FINDINGS: DIAGNOSTIC CATEGORY 1--NEGATIVE. RIGHT BREAST: No significant suspicious finding. LEFT BREAST: No significant suspicious finding. RECOMMENDATIONS: ROUTINE MAMMOGRAM AND CLINICAL EVALUATION IN 12 MONTHS. Dictated by: Jay Moore DO on 12/20/2024 at 15:16 Approved by: Jay Moore DO on 12/20/2024 at 15:17
== END 2024-12-19 08:31 | disposition home or self-care (01) ==
LOC: MAMMO 08:30
PROVIDERS: PCP Family Medicine; Visit Provider Nurse Practitioner Family
DX: Z12.31 Encounter for screening mammogram for malignant neoplasm of breast (principal); M81.0 Age-related osteoporosis without current pathological fracture
CPT/HCPCS: 77063; 77067; 77080